=== PATIENT | female | born 2000 | race Caucasian/White ===

== ENCOUNTER 2021-11-10 09:47 | Emergency (ER) | payer OTHER, SELFPAY ==
--- NOTE | 2021-11-10 | ECG_ITS ---
Test Reason : chest pain Blood Pressure : / mmHG Vent. Rate : 096 BPM Atrial Rate : 096 BPM P-R Int : 126 ms QRS Dur : 072 ms QT Int : 340 ms P-R-T Axes : 074 058 041 degrees QTc Int : 429 ms Normal sinus rhythm with sinus arrhythmia Possible Left atrial enlargement Borderline ECG No previous ECGs available Referred By: Generic ED Physician Electronically Signed By:Doni Leon
--- NOTE | ~2021-11-10 | XR_ITS ---
EXAMINATION: XR CHEST CLINICAL INFORMATION: Chest pain COMPARISON: None TECHNIQUE: 2 views of the chest were obtained. FINDINGS: No significant abnormality is noted involving the heart, lungs, mediastinum, bony thorax or soft tissues. XR/XR chest 2V IMPRESSION: Unremarkable chest examination.
[2021-11-10 09:52] VITALS: BP 130/86; PULSE 96; RESP 18; TEMP 37; O2SAT 98; BMI 28.3
--- NOTE | 2021-11-10 10:19 | ED_ITS ---
HPI - General Adult General Chief complaint: General Medical Stated complaint: chest pain Time Seen by Provider: 11/10/21 10:07 Source: patient Mode of arrival: ambulatory History of Present Illness HPI narrative: 21-year-old female with the recent past medical history of bronchitis 2 weeks ago treated with Azithromycin & prednisone without relief, presenting to the ED complaining of continued/worsening symptoms with productive cough of green phlegm, chest tightness/discomfort, SOB. Reports chest discomfort worse on deep inspiration, and SOB worse on exertion. Also reports intermittent right calf pain x1 year worsening last night. Does take oral OCPs. Denies fever, ear pain, sore throat, abdominal pain, pedal edema, recent travel, history of clots Onset (ago): week(s) Related Data Previous Rx's Medication Instructions Recorded acetaminophen 500 mg tablet 500 mg PO Q6H PRN #14 tab 11/10/21 (Tylenol Extra Strength) benzonatate 200 mg capsule 200 mg PO TID PRN #20 cap 11/10/21 fluticasone propionate 50 2 spray INTRANASAL DAILY #16 g 11/10/21 mcg/actuation nasal spray,suspension (Flonase Allergy Relief) ibuprofen 400 mg tablet 400 mg PO Q6H 7 Days #14 tab 11/10/21 Allergies Allergy/AdvReac Type Severity Reaction Status Date / Time No Known Allergies Allergy Unverified 04/14/20 16:49 [No Known Allergies*] Review of Systems Review of Systems: Constitutional: No Fever, No Chills, No Fatigue, No Malaise ENT/Mouth: No Ear Pain, + Nasal Congestion, No Sinus Pain, No Hoarseness, No s ore throat, + Rhinorrhea, No Swallowing Difficulty Eyes: No Eye Pain, No Swelling, No Redness, No Foreign Body, No Discharge, No Vision Changes Cardiovascular: + Chest Pain, + SOB, + Dyspnea on Exertion, No Orthopnea, No Edema, No Palpitations Respiratory: + Cough, + Sputum, No Wheezing, + Dyspnea Gastrointestinal: No Nausea, No Vomiting, No Diarrhea, No Constipation, No Abdominal pain Genitourinary: No Dysuria, No Urinary Frequency, No Hematuria, No Urgency, No Flank Pain, No Urinary Flow Changes Musculoskeletal: No joint pain, No Myalgias, No Joint Swelling Skin: No Skin Lesions, No rash Neuro: No Weakness, No Numbness, No Paresthesias, No Dizziness, No Headache Yes all other systems are reviewed and are negative [facility] Past Medical History Attestation statement: The following information was validated with the patient. Medical History No known health problems Social History Social History Advance Directives: No Patient : No Physical Exam ED Vital Signs: Vital Signs - 24 hr 11/10/21 09:52 11/10/21 10:30 Temperature 98.6 F Pulse Rate 96 96 Respiratory Rate 18 18 Blood Pressure 130/86 Pulse Oximetry 98 BMI result Body Mass Index 28.3 Const General: cooperative, healthy appearing and no acute distress Orientation/consciousness: patient oriented x3 Limitations: no limitations HENMT Head: Yes normal to inspection Ears: hearing grossly normal bilaterally, external ears normal, TM's normal bilaterally and mastoids normal General nose exam: Normal external nose present and Nasal discharge present Face and sinus: Yes normal facial exam Mouth: Normal oral and palatal mucosa present Throat: Yes uvula midline, Yes abnormal tonsil (+ bilateral tonsillar erythema and swelling, no exudates), No peritonsillar mass, No uvula laterally displaced and No uvular edema Eyes General: appearance normal, both eyes and all related structures EOM: EOMs intact bilaterally Neck Other: + mild submandibular lymphadenopathy Neck: Yes normal visual inspection, Yes no meningeal signs, Yes supple and No anterior neck swelling Resp Effort & Inspection: normal respiratory effort, no respiratory distress, no stridor and not tachypneic Auscultation: clear to auscultation bilaterally, no rales, no rhonchi and no wheezes Cardio Rate: regular rate Heart sounds: S1 normal heart sound present and S2 normal heart sound present GI Inspection: Yes normal to inspection Palpation (GI): Soft to palpation, nontender, no guarding and not rigid General: Yes no CVA tenderness Back/Spine/Pelvis Back: no CVA tenderness Skin Rashes: no rashes Wounds: no wounds Neuro General: patient oriented x3 and no meningeal signs Gait exam (Neuro): Normal gait present Extrem Other: + mild right calf tenderness, no appreciable swelling or erythema General: Yes normal to inspection and Yes no pedal edema Course Course Course Narrative: -1237--no leukocytosis. D-dimer negative. Labs otherwise unremarkable. Troponin negative. BNP negative. -COVID-19/influenza and rapid strep negative XR chest 2V IMPRESSION: Unremarkable chest examination. > results discussed with patient. Will DC with Flonase, albuterol, Tylenol, Tessalon Perles, and close PCP follow-up. She verbalized understanding feel safe for discharge home at this time Medical Decision Making MDM Narrative Medical decision making narrative: 21-year-old female with the recent past medical history of bronchitis 2 weeks ago treated with Azithromycin & prednisone without relief, presenting to the ED complaining of continued/worsening symptoms with productive cough of green phlegm, chest tightness/discomfort, SOB. On exam VSS, NAD, nontoxic, lungs CTA, mild right calf tenderness without appreciable swelling. Concern for bronchitis vs viral illness vs pneumonia vs PE/DVT (pts calf pain intermittent x1yr will start with d-dimer). Symptoms atypical for ACS. Wells' Criteria =1 > will obtain D-dimer. Plan: EKG, labs, CXR, DuoNeb, re-evaluate Medical Records Medical records reviewed: Yes I reviewed the patient's medical records. Lab Data Lab results reviewed: Yes I reviewed the patient's lab results. Result diagrams: 11/10/21 10:17 11/10/21 10:16 Labs: Lab Results 11/10/21 11/10/21 11/10/21 Range/Units 10:16 10:16 10:17 WBC 9.7 (4.8-10.8) X10*3/uL RBC 4.73 (4.20-5.50) X10*6/uL Hgb 12.6 (12.0-16.0) g/dl Hct 39.4 (37.0-47.0) % MCV 83.3 (80.0-98.0) fL MCH 26.6 L (27.0-33.0) pg MCHC 32.0 (31.0-35.0) g/dl RDW 13.8 (11.0-16.0) % Plt Count 341 (160-400) X10*3/uL MPV 9.7 (9.4-12.3) fL Immature Gran % (Auto) 0.5 H (0.0-0.4) % Neut % (Auto) 79.4 H (45-73) % Lymph % (Auto) 15.8 L (20-40) % [place] % (Auto) 3.2 (2-11) % Eos % (Auto) 0.8 (0-4) % Baso % (Auto) 0.3 (0-2) % Lymph # (Auto) 1.5 (1.2-4.9) X10*3/uL [place] # (Auto) 0.3 (0.1-1.2) X10*3/uL Eos # (Auto) 0.1 (0.0-0.4) X10*3/uL Baso # (Auto) 0.0 (0.0-0.2) X10*3/uL Abs Immat Gran (auto) 0.05 H (0.00-0.03) X10*3/uL Absolute Neuts (auto) 7.7 (2.0-8.3) x10*3/uL Absolute Nucleated RBC 0.000 (0.0-0.012) X10*3/uL Nucleated RBC % (auto) 0.0 (0.0-0.2) /100WBC PT (9.9-13.0) SEC INR (0.9-1.1) D-Dimer High Sensitivty NG/ML Sodium 138 (135-145) mmol/L Potassium 3.8 (3.3-5.1) mmol/L Chloride 106 (96-108) mmol/L Carbon Dioxide 23 (22-29) mmol/L Anion Gap 13 (12-20) BUN 7 L (9-16) mg/dL Creatinine 0.63 (0.5-1.4) mg/dL Estim Creat Clear Calc 124.6 Estimated GFR > 60 Random Glucose 79 (60-115) mg/dL Calcium 9.3 (8.4-10.2) mg/dL Troponin I High Sens < 3.5 (<3.5-17.0) ng/L B-Natriuretic Peptide (<100) pg/mL COVID-19 (MIKAL) (Negative) COVID-19 Clin Com Influenza Type A (RASHIDA) (Negative) Influenza Type B (RASHIDA) (Negative) Influenza A & B Note S. pyogenes GrpA RASHIDA (Negative) 11/10/21 11/10/21 11/10/21 Range/Units 10:17 11:02 11:02 WBC (4.8-10.8) X10*3/uL RBC (4.20-5.50) X10*6/uL Hgb (12.0-16.0) g/dl Hct (37.0-47.0) % MCV (80.0-98.0) fL MCH (27.0-33.0) pg MCHC (31.0-35.0) g/dl RDW (11.0-16.0) % Plt Count (160-400) X10*3/uL MPV (9.4-12.3) fL Immature Gran % (Auto) (0.0-0.4) % Neut % (Auto) (45-73) % Lymph % (Auto) (20-40) % [place] % (Auto) (2-11) % Eos % (Auto) (0-4) % Baso % (Auto) (0-2) % Lymph # (Auto) (1.2-4.9) X10*3/uL [place] # (Auto) (0.1-1.2) X10*3/uL Eos # (Auto) (0.0-0.4) X10*3/uL Baso # (Auto) (0.0-0.2) X10*3/uL Abs Immat Gran (auto) (0.00-0.03) X10*3/uL Absolute Neuts (auto) (2.0-8.3) x10*3/uL Absolute Nucleated RBC (0.0-0.012) X10*3/uL Nucleated RBC % (auto) (0.0-0.2) /100WBC PT (9.9-13.0) SEC INR (0.9-1.1) D-Dimer High Sensitivty NG/ML Sodium (135-145) mmol/L Potassium (3.3-5.1) mmol/L Chloride (96-108) mmol/L Carbon Dioxide (22-29) mmol/L Anion Gap (12-20) BUN (9-16) mg/dL Creatinine (0.5-1.4) mg/dL Estim Creat Clear Calc Estimated GFR Random Glucose (60-115) mg/dL Calcium (8.4-10.2) mg/dL Troponin I High Sens (<3.5-17.0) ng/L B-Natriuretic Peptide < 10 (<100) pg/mL COVID-19 (MIKAL) Negative (Negative) COVID-19 Clin Com See Note Influenza Type A (RASHIDA) Negative (Negative) Influenza Type B (RASHIDA) Negative (Negative) Influenza A & B Note See Note S. pyogenes GrpA RASHIDA (Negative) 11/10/21 11/10/21 Range/Units 11:21 11:45 WBC (4.8-10.8) X10*3/uL RBC (4.20-5.50) X10*6/uL Hgb (12.0-16.0) g/dl Hct (37.0-47.0) % MCV (80.0-98.0) fL MCH (27.0-33.0) pg MCHC (31.0-35.0) g/dl RDW (11.0-16.0) % Plt Count (160-400) X10*3/uL MPV (9.4-12.3) fL Immature Gran % (Auto) (0.0-0.4) % Neut % (Auto) (45-73) % Lymph % (Auto) (20-40) % [place] % (Auto) (2-11) % Eos % (Auto) (0-4) % Baso % (Auto) (0-2) % Lymph # (Auto) (1.2-4.9) X10*3/uL [place] # (Auto) (0.1-1.2) X10*3/uL Eos # (Auto) (0.0-0.4) X10*3/uL Baso # (Auto) (0.0-0.2) X10*3/uL Abs Immat Gran (auto) (0.00-0.03) X10*3/uL Absolute Neuts (auto) (2.0-8.3) x10*3/uL Absolute Nucleated RBC (0.0-0.012) X10*3/uL Nucleated RBC % (auto) (0.0-0.2) /100WBC PT 10.7 (9.9-13.0) SEC INR 0.9 (0.9-1.1) D-Dimer High Sensitivty < 150 NG/ML Sodium (135-145) mmol/L Potassium (3.3-5.1) mmol/L Chloride (96-108) mmol/L Carbon Dioxide (22-29) mmol/L Anion Gap (12-20) BUN (9-16) mg/dL Creatinine (0.5-1.4) mg/dL Estim Creat Clear Calc Estimated GFR Random Glucose (60-115) mg/dL Calcium (8.4-10.2) mg/dL Troponin I High Sens (<3.5-17.0) ng/L B-Natriuretic Peptide (<100) pg/mL COVID-19 (MIKAL) (Negative) COVID-19 Clin Com Influenza Type A (RASHIDA) (Negative) Influenza Type B (RASHIDA) (Negative) Influenza A & B Note S. pyogenes GrpA RASHIDA Negative (Negative) ECG Data Attestation: I personally reviewed and interpreted this ECG as follows: Prior ECG tracings: not available for review Interpretation: EKG normal sinus rhythm with sinus arrhythmia at a rate of 96. PA interval 126. QTC 429. No previous EKGs to compare. No STEMI. Scores Wells DVT Localized tenderness along distribution of deep veins: 1 Score: 1 2-tier Risk: unlikely risk (5%) 3-tier Risk: moderate risk (17%) Discharge Plan Discharge Clinical Impression: Acute viral syndrome Patient Disposition: Home, Self-Care Instructions: Viral Syndrome (ED) Additional Instructions: Your blood work was reassuring. Your chest x-ray is unremarkable. He tested n egative for COVID-19, the flu, and strep throat Push oral fluids at home, rest Take Tylenol and Motrin Tessalon Perles for cough, take as needed In addition use Flonase Please follow-up with her doctor If symptoms persist or worsen have constant worsening chest pain, shortness of breath, fever please return to the emergency department Prescriptions: New benzonatate 200 mg capsule 200 mg PO TID PRN (Reason: cough) Qty: 20 0RF acetaminophen [Tylenol Extra Strength] 500 mg tablet 500 mg PO Q6H PRN (Reason: pain or fever) Qty: 14 0RF ibuprofen 400 mg tablet 400 mg PO Q6H 7 Days Qty: 14 0RF fluticasone propionate [Flonase Allergy Relief] 50 mcg/actuation spray,suspension 2 spray intranasal DAILY Qty: 16 0RF Rx Instructions: administer into each nostril Referrals: Marva Mosley MD [Primary Care Provider] - 3 days
[2021-11-10] MEDS: Albuterol Sulfate (0.083%) 2.5 MG/3 ML VIAL.NEB INHALE (10:27)
[2021-11-10 10:30] VITALS: PULSE 96; RESP 18; O2SAT 98
[2021-11-10 11:29] LABS: COVID-19 Test Negative (Negative); IDNOW Serial# 55D5AD1C
[2021-11-10 11:30] LABS: MANUAL DIFF FLAG NO
[2021-11-10 11:33] LABS: Basophils Percent Auto 0.3 % (0-2); Eosinophils Absolute Auto 0.1 X10*3/uL (0.0-0.4); Eosinophils Percent Auto 0.8 % (0-4); Hematocrit 39.4 % (37.0-47.0); Hemoglobin 12.6 g/dl (12.0-16.0); Imm Gran Abs Auto 0.05 X10*3/uL (0.00-0.03); Imm Gran Pct Auto 0.5 % (0.0-0.4); Lymphocytes Absolute Auto 1.5 X10*3/uL (1.2-4.9); Lymphocytes Percent Auto 15.8 % (20-40); Mean Corpuscular Hemoglobin 26.6 pg (27.0-33.0); Mean Corpuscular Volume 83.3 fL (80.0-98.0); Mean Platelet Volume 9.7 fL (9.4-12.3); Monocytes Absolute Auto 0.3 X10*3/uL (0.1-1.2); Monocytes Percent Auto 3.2 % (2-11); Neutrophils Absolute Auto 7.7 x10*3/uL (2.0-8.3); Neutrophils Percent Auto 79.4 % (45-73); Platelet Count 341 X10*3/uL (160-400); Red Blood Count 4.73 X10*6/uL (4.20-5.50); Red Cell Distribution Width 13.8 % (11.0-16.0); White Blood Count 9.7 X10*3/uL (4.8-10.8)
[2021-11-10 11:43] LABS: INTERNATIONAL NORM RATIO 0.9 (0.9-1.1); Prothrombin Time 10.7 SEC (9.9-13.0)
[2021-11-10 11:46] LABS: IDNOW Serial# 08D9AD1C; Influenza A Negative (Negative); Influenza B2 Negative (Negative)
[2021-11-10 11:52] LABS: Anion Gap 13 (12-20); Blood Urea Nitrogen 7 mg/dL (9-16); Calcium 9.3 mg/dL (8.4-10.2); Carbon Dioxide 23 mmol/L (22-29); Chloride 106 mmol/L (96-108); Creatinine Clr Calc Pharmacy 124.6; Estimated Glomerular Filt Rate > 60; Glucose Random 79 mg/dL (60-115); Potassium 3.8 mmol/L (3.3-5.1); Sodium 138 mmol/L (135-145)
[2021-11-10 11:54] LABS: D Dimer High Sensitivity < 150 NG/ML
[2021-11-10 11:54] LABS: Troponin-I High Sensitivity < 3.5 ng/L (<3.5-17.0)
[2021-11-10 11:55] LABS: B Type Natriuretic Peptide < 10 pg/mL (<100)
[2021-11-10 12:06] LABS: Strep A Nucleic Acid Negative (Negative)
== END 2021-11-10 13:07 | disposition home or self-care (01) ==
PROVIDERS: Physician Assistant; Emergency Provider Emergency Medicine; PCP Pediatrics
DX: B34.9 Viral infection, unspecified (principal); R07.89 Other chest pain; Z20.822 Contact with and (suspected) exposure to COVID-19; Z79.899 Other long term (current) drug therapy
CPT/HCPCS: 36415; 71046; 80048; 83880; 84484; 85025; 85379; 85610; 87502; 87635; 87651; 93005; 94640; 99284

== ENCOUNTER 2022-04-28 01:37 | Emergency (ER) | payer OTHER, SELFPAY ==
[2022-04-28 02:25] VITALS: BP 126/69; PULSE 93; RESP 18; TEMP 36.7; O2SAT 98; BMI 29.2
[2022-04-28 04:14] VITALS: BP 139/95; PULSE 92; RESP 15; TEMP 36.9; O2SAT 99
--- NOTE | 2022-04-28 04:16 | PC.NURSE ---
Pt. on ekg monitor at this time. Father at bedside. Awaiting ED provider
--- NOTE | 2022-04-28 04:17 | PC.NURSE ---
Pt. states that pain is to L thigh. Pain has been present since 12:00 on 04/27/22. Pain is sharp in nature to L knee, then a dull ache that has progressively been moving up to hip and wrapping around thigh
[2022-04-28 05:05] LABS: Appearance Urine Clear; Color Urine Yellow; Glucose Urine UA Negative (Negative); Leukocyte Esterase Urine Moderate (2+) (Negative); Nitrite Urine Negative (Negative); PH 5.5 (5.0-9.0); Specific Gravity - Urine >= 1.030 (1.005-1.025); UMIC TRIGGER UACC YES; Urine Blood Large (3+) (Negative); Urine Ketones Trace mg/dL (Negative); Urine Protein 30 (1+) mg/dL (Neg-Trace)
[2022-04-28 05:09] LABS: UPreg QC Valid YES; Urine Pregnancy NEGATIVE (NEGATIVE)
--- NOTE | 2022-04-28 05:12 | ED.LOWEXIN ---
HPI - Extremity Injury (Lower) General Chief Complaint: Extremity Injury, Lower Stated Complaint: Thigh/Knee pain Time Seen by Provider: 04/28/22 04:28 Source: patient Mode of arrival: ambulatory History of Present Illness HPI Narrative: 22-year-old female without significant past medical history presents with complaints of left lateral thigh discomfort that is tingling in nature and she states that also extends in the front just above her knee. Patient states that the pain and discomfort started after she did an exercise regimen of ?leg work?. Patient denies any falls, fevers, chills, calf pain, redness or swelling. Related Data Previous Rx's Medication Instructions Recorded acetaminophen 500 mg tablet 500 mg PO Q6H PRN pain or fever 11/10/21 (Tylenol Extra Strength) #14 tabs benzonatate 200 mg capsule 200 mg PO TID PRN cough #20 caps 11/10/21 fluticasone propionate 50 2 spray intranasal DAILY #16 grams 11/10/21 mcg/actuation nasal spray,suspension (Flonase Allergy Relief) ibuprofen 400 mg tablet 400 mg PO Q6H 7 days #14 tabs 11/10/21 Allergies Allergy/AdvReac Type Severity Reaction Status Date / Time No Known Allergies Allergy Unverified 04/14/20 16:49 [No Known Allergies*] Review of Systems Review of Systems: Pertinent positives and negatives as stated in HPI 10 point review of systems is otherwise negative. PMFSH Past Medical History Source: nursing notes reviewed Medical History No known health problems Social History Social History Alcohol intake: never Patient Tobacco Use Status: Never used Tobacco Use of substances other than those prescribed or required for medical reasons: No Advance Directives: No Advance Directives Information Provided: Yes Patient : No Physical Exam Vital Signs: Vital Signs: Last Vital Signs Temp 98.4 F 04/28/22 04:14 Pulse 92 04/28/22 04:14 Resp 15 04/28/22 04:14 BP 139/95 H 04/28/22 04:14 Pulse Ox 99 04/28/22 04:14 O2 Del Method 04/28/22 04:14 BMI result Body Mass Index 29.2 VITAL SIGNS: Reviewed. GENERAL: Well developed, well nourished, in no acute distress. HEAD: Normocephalic/atraumatic EYES: PERRLA, EOMI EARS: Ext canals without abnormality OROPHARYNX: no oral lesions noted, posterior pharynx clear LUNGS: Normal breath sounds. No adventitious sounds or accessory muscle use. SpO2<99> CARDIOVASCULAR: Regular rate and rhythm without noted murmurs ABDOMEN: Soft, non-tender, non-distended with bowel sounds. MUSCULOSKELETAL: No tenderness, deformities, or effusions noted on gross inspection. EXTREMITIES: No cyanosis, clubbing or edema,; LEFT LOWER EXTREMITY: TENDERNESS TO PALPATION OVER LATERAL ASPECT WITHOUT ERYTHEMA OR INDURATION SKIN: Inspection of the skin reveals no rashes NEUROLOGIC: Alert and oriented x 4. Strength and sensation to light touch were grossly intact x 4. Course Course Course Narrative: 22-year-old female with history and clinical presentation consistent with overuse injury likely secondary to exercise regimen from in the morning. The low clinical suspicion for DVT and no evidence to suggest infection. Review of all investigations negative for acute findings, the noted hematuria is secondary to patient's ongoing menstruation at this time. On re-evaluation patient is feeling better after combination analgesics. MDM - Extremity Injury (Lower) Lab Data Labs: Lab Results 04/28/22 04/28/22 04/28/22 Range/Units 04:57 04:57 05:16 D-Dimer High Sensitivty 167 NG/ML Urine Color Yellow Urine Appearance Clear Urine pH 5.5 (5.0-9.0) Ur Specific [place] >= 1.030 H (1.005-1.025) Urine Protein 30 (1+) H (Neg-Trace) mg/dL Urine Glucose (UA) Negative (Negative) mg/dL Urine Ketones Trace (Negative) mg/dL Urine Blood Large (3+) H (Negative) Urine Nitrite Negative (Negative) Ur Leukocyte Esterase Moderate (2+) H (Negative) Urine RBC 3-5 H (0-2) /HPF Urine WBC 21-50 H (0-5) /HPF Ur Squamous Epith Cells 11-20 (0-2) /HPF Urine Bacteria 1+ (None Seen) Hyaline Casts 0-2 (0-2) /LPF Urine Test NEGATIVE (NEGATIVE) Discharge Plan Discharge Clinical Impression: Overuse injury of lower leg Patient Disposition: Home, Self-Care Instructions: Tendinitis (ED) Additional Instructions: 1. Tylenol 1000 mg, orally, every 6 hours as needed for pain control. Do not exceed 4000 mg within 24 hours. 2. Ibuprofen 400 mg, orally with milk or food, every 6 hours as needed for pain control. You may take this medication with Tylenol. 3. Rest your leg into not do any further weight lifting at this time. Return to the ER for worsening symptoms. Prescriptions: No Action benzonatate 200 mg capsule 200 mg PO TID PRN (Reason: cough) Qty: 20 0RF acetaminophen [Tylenol Extra Strength] 500 mg tablet 500 mg PO Q6H PRN (Reason: pain or fever) Qty: 14 0RF ibuprofen 400 mg tablet 400 mg PO Q6H 7 Days Qty: 14 0RF fluticasone propionate [Flonase Allergy Relief] 50 mcg/actuation spray,suspension 2 spray intranasal DAILY Qty: 16 0RF Rx Instructions: administer into each nostril Referrals: Marva Mosley MD [Primary Care Provider] - Stand Alone Forms: Work/School Release
[2022-04-28 05:25] LABS: Bacteria Urine 1+ (None Seen); Hyaline Casts Urine 0-2 /LPF (0-2); UACC Culture Trigger YES; WBC Urine 21-50 /HPF (0-5)
[2022-04-28 05:33] LABS: D Dimer High Sensitivity 167 NG/ML
[2022-04-28] MEDS: Acetaminophen 325 MG TABLET 975 MG PO (05:43)
[2022-04-28] MEDS: Ketorolac Tromethamine 15 MG/ML VIAL IM (05:44)
== END 2022-04-28 05:50 | disposition home or self-care (01) ==
PROVIDERS: Emergency Provider Student in an Organized Health Care Education/Training Program; PCP Pediatrics
DX: S79.922A Unspecified injury of left thigh, initial encounter (principal); X58.XXXA Exposure to other specified factors, initial encounter; Y93.B9 Activity, other involving muscle strengthening exercises; Y92.9 Unspecified place or not applicable; Y99.9 Unspecified external cause status
CPT/HCPCS: 36415; 81001; 81025; 85379; 87086; 87147; 96372; 99284; J1885

== ENCOUNTER 2023-02-18 07:49 | Emergency (ER) | payer MEDICAID, SELFPAY ==
--- NOTE | ~2023-02-18 | US_ITS ---
EXAMINATION: US PELVIS COMPLETE US PELVIS ENDOVAGINAL CLINICAL INFORMATION: Right lower quadrant pain COMPARISON: CT abdomen from 02/18/2023 TECHNIQUE: Transabdominal and transvaginal images of the pelvis were obtained. FINDINGS: UTERUS: Anteverted. Normal size and contour, measuring 7.7 x 4.1 x 5.1 cm (cervix to fundus x AP x transverse). Uniform, homogeneous endometrium measures 0.4 cm in width. RIGHT OVARY: Right ovary measures 6.8 x 4.0 x 3.5 cm, volume 61.3 cm. Vascular flow noted in the right ovary. Redemonstration of a nonvascular right ovarian cyst with small daughter cyst measuring 5.1 x 4.1 x 3.1 cm. LEFT OVARY: Normal size and echogenicity measuring 2.5 x 1.0 x 1.9 cm, volume 2.4 cm. Vascular flow noted in the left ovary. FREE FLUID: Fluid noted adjacent to the uterine fundus. US/US pelvic and transvaginal IMPRESSION: 1. Bilateral ovarian vascular flow identified. 2. Redemonstration of a nonvascular right ovarian cyst with small daughter cyst measuring 5.1 x 4.1 x 3.1 cm. 3. Fluid noted adjacent to the uterine fundus.
--- NOTE | ~2023-02-18 | US_ITS ---
EXAMINATION: US PELVIS COMPLETE US PELVIS ENDOVAGINAL CLINICAL INFORMATION: Right lower quadrant pain COMPARISON: CT abdomen from 02/18/2023 TECHNIQUE: Transabdominal and transvaginal images of the pelvis were obtained. FINDINGS: UTERUS: Anteverted. Normal size and contour, measuring 7.7 x 4.1 x 5.1 cm (cervix to fundus x AP x transverse). Uniform, homogeneous endometrium measures 0.4 cm in width. RIGHT OVARY: Right ovary measures 6.8 x 4.0 x 3.5 cm, volume 61.3 cm. Vascular flow noted in the right ovary. Redemonstration of a nonvascular right ovarian cyst with small daughter cyst measuring 5.1 x 4.1 x 3.1 cm. LEFT OVARY: Normal size and echogenicity measuring 2.5 x 1.0 x 1.9 cm, volume 2.4 cm. Vascular flow noted in the left ovary. FREE FLUID: Fluid noted adjacent to the uterine fundus. US/US pelvic ovarian doppler IMPRESSION: 1. Bilateral ovarian vascular flow identified. 2. Redemonstration of a nonvascular right ovarian cyst with small daughter cyst measuring 5.1 x 4.1 x 3.1 cm. 3. Fluid noted adjacent to the uterine fundus.
--- NOTE | ~2023-02-18 | CT_ITS ---
EXAMINATION: CT ABDOMEN AND PELVIS WITH CONTRAST CLINICAL INFORMATION: 23-year-old female with right lower quadrant abdominal pain COMPARISON: Pelvic ultrasound from the same day TECHNIQUE: Multidetector volumetric images were obtained from the superior aspect of the liver through the pubic symphysis following administration 85 mL of Omnipaque 350 intravenous contrast. Sagittal and coronal reformatted images were obtained on the technologist's workstation. Oral contrast: No This CT examination was performed using dose optimization techniques as appropriate, variously including the following: *Automated exposure control *Adjustment of mA and/or kV according to patient size (this includes techniques or standardized protocols for targeted exams where dose is matched to indication/reason for exam; i.e. extremities or head) *Use of iterative reconstruction technique DLP: 549.00 mGy-cm FINDINGS: LUNG BASES: The visualized lung bases are unremarkable. LIVER, GALLBLADDER, AND BILIARY TREE: There is homogeneous without masses, there is small low-attenuation lesion in the right lobe of the liver adjacent to falciform ligament, measured 0.6 cm most likely cyst. The gallbladder is unremarkable with no evidence of radiopaque gallstones, gallbladder wall thickening, or obvious pericholecystic inflammatory changes. PANCREAS: Unremarkable. SPLEEN: Unremarkable. ADRENAL GLANDS: Unremarkable. KIDNEYS AND URETERS: The kidneys are normal in size, shape, and attenuation. No hydronephrosis, hydroureter, or calculi seen. No perinephric stranding. BLADDER: Unremarkable. GASTROINTESTINAL TRACT: There is large amount of retained feces in ascending colon and cecum and a 10 gas in the colon. Findings consistent with constipation. Appendix is unremarkable. Small bowel loops are not dilated. Mesentery is normal. ABDOMINAL WALL: No significant hernia is appreciated. LYMPH NODES: Normal. VASCULAR: Unremarkable. PELVIC VISCERA: There is IUD in the uterus. There is large cystic tubular lesion in the right adnexa, measured approximately 6.0 x 3.0 x 3.6 cm with seen septations most likely cyst, hydrosalpinx couldn't be excluded. There is trace of fluid in cul-de-sac. OSSEOUS STRUCTURES: Unremarkable. CT/CT abdomen pelvis w IV con IMPRESSION: 1. Right adnexal cyst, hydrosalpinx couldn't be excluded. 2. Constipation. 3. Normal appendix. 4. Small cyst in the liver. 5. Trace of fluid in cul-de-sac. Fleischner guidelines were followed.
[2023-02-18 07:52] VITALS: BP 129/88; PULSE 92; RESP 12; TEMP 36.6; O2SAT 99; BMI 30.2
--- NOTE | 2023-02-18 08:01 | ED_ITS ---
HPI - Abdominal Pain General Chief Complaint: Abdominal Pain Stated Complaint: RLQ pain Time Seen by Provider: 02/18/23 07:52 Source: patient and family ( Mother) Mode of arrival: ambulatory Limitations: no limitations History of Present Illness HPI narrative: this is a 23-year-old female without significant medical history presenting to the emergency department with complaints of right lower quadrant abdominal pain, pain started 2 days ago and has been gradually and progressively worsening. Patient reports initially the pain was localized to her left lower quadrant and has migrated to the right lower quadrant now pain is constant, severe, she states last night was intolerable, pain is worse with movement better at rest. Patient endorses nausea and anorexia. Denies vomiting, chest pain, shortness of breath, fevers, chills, headache, vaginal bleeding or discharge, vision changes, dizziness and weakness. Patient denies any previous abdominal surgeries Related Data Previous Rx's Medication Instructions Recorded acetaminophen 500 mg tablet 500 mg PO Q6H PRN pain or fever 11/10/21 (Tylenol Extra Strength) #14 tabs benzonatate 200 mg capsule 200 mg PO TID PRN cough #20 caps 11/10/21 fluticasone propionate 50 2 spray intranasal DAILY #16 grams 11/10/21 mcg/actuation nasal spray,suspension (Flonase Allergy Relief) ibuprofen 400 mg tablet 400 mg PO Q6H 7 days #14 tabs 11/10/21 docusate sodium 100 mg capsule 100 mg PO BID #20 caps 02/18/23 (Colace) ketorolac 10 mg tablet 10 mg PO TID PRN pain 5 days #15 02/18/23 tabs polyethylene glycol 3350 17 17 g PO BID PRN constipation #238 02/18/23 gram/dose oral powder (Miralax) grams sennosides 8.6 mg tablet (senna) 8.6 mg PO BEDTIME #14 tabs 02/18/23 Allergies Allergy/AdvReac Type Severity Reaction Status Date / Time No Known Allergies Allergy Unverified 04/14/20 16:49 [No Known Allergies*] Review of Systems Review of Systems Constitutional : No Weight loss, No Fever, No Chills, No Fatigue, No Malaise ENT/Mouth : No sore throat, No Rhinorrhea Eyes: No Eye Pain, No Swelling, No Redness Cardiovascular : No Chest Pain, No SOB, No Dyspnea on Exertion, No Orthopnea, No Edema, No Palpitations Respiratory : No Cough, No Sputum, No Wheezing Gastrointestinal : + Nausea, No Vomiting, No Diarrhea, No Constipation, + abdominal Pain, No Hematochezia, No Melena Genitourinary : No Dysuria, No Urinary Frequency, No Hematuria, Musculoskeletal : No joint pain, No Myalgias, No Joint Swelling Skin : No Skin Lesions, No rash Neuro : No Weakness, No Numbness, No Dizziness, No Headache Psych : No Anxiety/Panic, No Depression All other systems reviewed and are negative Yes all other systems are reviewed and are negative [facility] Past Medical History Attestation statement: The following information was validated with the patient. Source: old records reviewed and nursing notes reviewed Medical History No known health problems Social History Social History Alcohol intake: current Alcohol intake frequency: holidays/special occasions only Patient Tobacco Use Status: Never used Tobacco Smoked in Last 30 Days: No Use of substances other than those prescribed or required for medical reasons: Yes Substance Use Type: Marijuana Substance Use Frequency: Occasionally Last Used Substance: Weeks (ago) Advance Directives: No Advance Directives Information Provided: No Physical Exam ED Vital Signs: Vital Signs - 24 hr 02/18/23 07:52 02/18/23 07:52 02/18/23 11:06 Temperature 97.8 F 97.8 F 98.6 F Pulse Rate 92 92 83 Respiratory Rate 12 12 18 Blood Pressure 129/88 129/88 120/77 Pulse Oximetry 99 99 98 Oxygen Delivery Method Room Air Room Air BMI result Body Mass Index 30.2 vss Appearance: Alert.? Oriented X3.? No acute distress.?Non toxic appearing Head: Normocephalic, atraumatic, no step-offs or deformities Eyes: Pupils equal, round and reactive to light.? Neck: Normal inspection.? Neck supple.? CVS: Normal heart rate and rhythm.? Pulses normal.? Respiratory: No respiratory distress.? Breath sounds normal.? Abdomen: Soft and abdominal tenderness to palpation to right lower quadrant. Skin: Skin warm and dry.? Normal skin color.? Normal skin turgor.? Extremities: No lower extremity edema.? No calf ttp. 5/5 strength to bilateral upper and lower extremities Neuro: Oriented X 3.? No motor deficit.? No sensory deficit. CN 2-12 intact Course Reevaluation(s) Reevaluation #1: CBC appears to have slight leukocytosis likely reactive secondary to pain or nausea. Chemistry unremarkable. CRP 0.66, mild elevation. Nonspecific. CT abdomen and pelvis with right adnexal cyst and hydrosalpinx possibly. Constipation, normal appendix, small cyst in the liver, trace fluid in the cul-de-sac, ovarian Doppler with normal flow no signs of torsion. Redemonstration and nonvascular right ovarian cyst with small daughter cyst measuring 5.1 x 4.1 x 3.1 cm, fluid noted adjacent to the uterine fundus. No reports of vaginal bleeding or discharge at this time, patient does not want a pelvic exam ( would rather have with out patient OBGYN) will have her follow-up with OBGYN. I did educate on signs of torsion in explained her she should return if any of these arise. Advised her to follow-up with OBGYN, pain likely secondary to inflammation from ovarian cyst or ruptured ovarian cyst . I did also go over the signs and symptoms of appendicitis and advised her to return if quality or quantity of pain changes. Patient feels better after Toradol, mom at bedside. Plan at this time discharge home. Educated patient on diagnosis and treatment plan, answered all question, patient verbalizes understanding. At this time patient will be discharged home, advised to return with new or worsening symptoms. Educated on worrisome signs and symptoms and when to return. At this time I feel comfortable discharge home. Time: 12:12 Medical Decision Making Medical Decision Making [facility] Narrative: 0818 23-year-old female presents with right lower quadrant pain x3 days. Associated nausea and anorexia. Patient still has appendix physical exam significant for Soft and abdominal tenderness to palpation to right lower quadrant. Negative Santiago sign. suspicion for appendicitis. Will rule out other intra-abdominal etiologies. Low suspicion for cholecystitis, pancreatitis, diverticulitis, acute abdomen. Will rule out electrolyte abnormalities, UTI, , obstructing uropathy , pelvic /ovarian cyst. Unlikely that this is ovarian torsion or ectopic plan labs, imaging, urine Differential Diagnosis Differential Diagnoses: The differential diagnosis associated with the presen tation includes suspicion for appendicitis. Will rule out other intra-abdominal etiologies. Low suspicion for cholecystitis, pancreatitis, diverticulitis, acute abdomen. Will rule out electrolyte abnormalities, UTI, , obstructing uropathy pelvic /ovarian cyst. Unlikely that this is ovarian torsion or ectopic Admission/Observation Consideration of admission/observation: Escalation of care including ad mission/observation considered possible Lab Data MDM Lab Attestation statement: I reviewed the patient's lab results. 02/18/23 08:18 02/18/23 08:19 Labs: Lab Results 02/18/23 02/18/23 02/18/23 Range/Units 08:18 08:18 08:18 WBC 11.3 H (4.8-10.8) X10*3/uL RBC 4.56 (4.20-5.50) X10*6/uL Hgb 12.1 (12.0-16.0) g/dl Hct 38.1 (37.0-47.0) % MCV 83.6 (80.0-98.0) fL MCH 26.5 L (27.0-33.0) pg MCHC 31.8 (31.0-35.0) g/dl RDW 14.0 (11.0-16.0) % Plt Count 330 (160-400) X10*3/uL MPV 9.6 (9.4-12.3) fL Immature Gran % (Auto) 0.4 (0.0-0.4) % Neut % (Auto) 68.6 (45-73) % Lymph % (Auto) 23.4 (20-40) % [place] % (Auto) 5.4 (2-11) % Eos % (Auto) 1.8 (0-4) % Baso % (Auto) 0.4 (0-2) % Lymph # (Auto) 2.7 (1.2-4.9) X10*3/uL [place] # (Auto) 0.6 (0.1-1.2) X10*3/uL Eos # (Auto) 0.2 (0.0-0.4) X10*3/uL Baso # (Auto) 0.1 (0.0-0.2) X10*3/uL Abs Immat Gran (auto) 0.05 H (0.00-0.03) X10*3/uL Absolute Neuts (auto) 7.8 (2.0-8.3) x10*3/uL Absolute Nucleated RBC 0.000 (0.0-0.012) X10*3/uL Nucleated RBC % (auto) 0.0 (0.0-0.2) /100WBC ESR 12 (0-20) MM/HR Sodium (135-145) mmol/L Potassium (3.3-5.1) mmol/L Chloride (96-108) mmol/L Carbon Dioxide (22-29) mmol/L Anion Gap (12-20) BUN (9-16) mg/dL Creatinine (0.5-1.4) mg/dL Estim Creat Clear Calc Estimated GFR Random Glucose (60-115) mg/dL Lactic Acid (0.5-2.0) mmol/L Calcium (8.4-10.2) mg/dL Magnesium (1.6-2.6) mg/dL Total Bilirubin (0.0-1.0) mg/dL AST (5-31) U/L ALT (0-31) U/L Alkaline Phosphatase (39-117) U/L C-Reactive Protein (< or = 0.50) mg/dL Total Protein (6.5-8.0) g/dL Albumin (3.5-5.0) g/dL COVID-19 (MIKAL) Negative (Negative) COVID-19 Clin Com See Note 02/18/23 02/18/23 Range/Units 08:19 08:19 WBC (4.8-10.8) X10*3/uL RBC (4.20-5.50) X10*6/uL Hgb (12.0-16.0) g/dl Hct (37.0-47.0) % MCV (80.0-98.0) fL MCH (27.0-33.0) pg MCHC (31.0-35.0) g/dl RDW (11.0-16.0) % Plt Count (160-400) X10*3/uL MPV (9.4-12.3) fL Immature Gran % (Auto) (0.0-0.4) % Neut % (Auto) (45-73) % Lymph % (Auto) (20-40) % [place] % (Auto) (2-11) % Eos % (Auto) (0-4) % Baso % (Auto) (0-2) % Lymph # (Auto) (1.2-4.9) X10*3/uL [place] # (Auto) (0.1-1.2) X10*3/uL Eos # (Auto) (0.0-0.4) X10*3/uL Baso # (Auto) (0.0-0.2) X10*3/uL Abs Immat Gran (auto) (0.00-0.03) X10*3/uL Absolute Neuts (auto) (2.0-8.3) x10*3/uL Absolute Nucleated RBC (0.0-0.012) X10*3/uL Nucleated RBC % (auto) (0.0-0.2) /100WBC ESR (0-20) MM/HR Sodium 140 (135-145) mmol/L Potassium 4.2 (3.3-5.1) mmol/L Chloride 107 (96-108) mmol/L Carbon Dioxide 27 (22-29) mmol/L Anion Gap 10 L (12-20) BUN 11 (9-16) mg/dL Creatinine 0.68 (0.5-1.4) mg/dL Estim Creat Clear Calc 117.2 Estimated GFR > 60 Random Glucose 87 (60-115) mg/dL Lactic Acid 1.4 (0.5-2.0) mmol/L Calcium 9.0 (8.4-10.2) mg/dL Magnesium 1.9 (1.6-2.6) mg/dL Total Bilirubin 0.3 (0.0-1.0) mg/dL AST 19 (5-31) U/L ALT 18 (0-31) U/L Alkaline Phosphatase 108 (39-117) U/L C-Reactive Protein 0.66 H (< or = 0.50) mg/dL Total Protein 7.5 (6.5-8.0) g/dL Albumin 4.1 (3.5-5.0) g/dL COVID-19 (MIKAL) (Negative) COVID-19 Clin Com Independent Interpretation I performed an independent interpretation of an: CT Scan Radiology Impression Discussion of test interpretation with radiology: I have reviewed the radiologist's reading. Core Measures AMI core measures followed: Yes Measure exclusions: not indicated Medications Administered Discontinued Medications Generic Name Dose Route Start Last Admin Trade Name Sav PRN Reason Stop Dose Admin Iohexol 85 ml 02/18/23 09:20 02/18/23 09:21 Iohexol 350 Mg/Ml 100 Ml Infus..Btl IV 02/18/23 09:21 85 ml ONCE ONE Administration Ketorolac Tromethamine 30 mg 02/18/23 08:19 02/18/23 08:28 Ketorolac Tromethamine 15 Mg/Ml Vial IVPUSH 02/18/23 08:20 30 mg ONCE ONE Administration Critical Care Time Critical Care Time Critical Care Time: No Discharge Plan Discharge Clinical Impression: Ovarian cyst, Abdominal pain, RLQ, Constipation Patient Disposition: Home, Self-Care Instructions: Ovarian Cyst (ED), High Fiber Diet (ED), Abdominal Pain (ED) Additional Instructions: Take your medications as prescribed. If you were prescribed antibiotics today, it is important that you take your medication to their entirety, do not skip any doses, do not finish them early. Follow-up with your primary care provider this week. Return to the emergency department with new or worsening symptoms. Such as fevers, chills, chest pain, shortness of breath, nausea, vomiting, dizziness, headache, vision changes, lethargy , heavy vaginal bleeding or bleeding through more than 2 pads an hour. In case of emergency call 911 Toradol has been sent to your pharmacy, you tolerated this well in the department. Please take this as prescribed do not take this with ibuprofen, or other NSAIDs, do not mix this with alcohol. Side effects of this medication including increased risk for bleeding and possible kidney injury. I educated on signs and symptoms of appendicitis and ovarian torsion, return with new or worsening symptoms, or if pain intensifies. US/US pelvic ovarian doppler RIGHT OVARY: Right ovary measures 6.8 x 4.0 x 3.5 cm, volume 61.3 cm. Vascular flow noted in the right ovary. Redemonstration of a nonvascular right ovarian cyst with small daughter cyst measuring 5.1 x 4.1 x 3.1 cm. LEFT OVARY:? Normal size and echogenicity measuring 2.5 x 1.0 x 1.9 cm, volume 2.4 cm. Vascular flow noted in the left ovary. FREE FLUID: Fluid noted adjacent to the uterine fundus. IMPRESSION: 1.? Bilateral ovarian vascular flow identified. 2.? Redemonstration of a nonvascular right ovarian cyst with small daughter cyst measuring 5.1 x 4.1 x 3.1 cm. 3.? Fluid noted adjacent to the uterine fundus. CT/CT abdomen pelvis w IV con IMPRESSION: 1.? Right adnexal cyst, hydrosalpinx couldn't be excluded. 2.? Constipation. 3.? Normal appendix. 4.? Small cyst in the liver. 5.? Trace of fluid in cul-de-sac. ? Fleischner guidelines were followed. Prescriptions: New ketorolac 10 mg tablet 10 mg PO TID PRN (Reason: pain) 5 Days Qty: 15 0RF sennosides [senna] 8.6 mg tablet 8.6 mg PO BEDTIME Qty: 14 0RF docusate sodium [Colace] 100 mg capsule 100 mg PO BID Qty: 20 0RF polyethylene glycol 3350 [Miralax] 17 gram/dose powder 17 g PO BID PRN (Reason: constipation) Qty: 238 0RF No Action benzonatate 200 mg capsule 200 mg PO TID PRN (Reason: cough) Qty: 20 0RF acetaminophen [Tylenol Extra Strength] 500 mg tablet 500 mg PO Q6H PRN (Reason: pain or fever) Qty: 14 0RF ibuprofen 400 mg tablet 400 mg PO Q6H 7 Days Qty: 14 0RF fluticasone propionate [Flonase Allergy Relief] 50 mcg/actuation s pray,suspension 2 spray intranasal DAILY Qty: 16 0RF Rx Instructions: administer into each nostril Referrals: Marva Mosley MD [Primary Care Provider] - 2 days Johnny Villanueva MD [Physician] - 1 day Stand Alone Forms: Work/School Release
--- NOTE | 2023-02-18 08:19 | PC.NURSE ---
pt a&ox3. respirations even and unlabored. skin warm pink and dry. abdominal sounds hypoactive in all 4 quadrants, RLQ tender to touch. pt reporting abdominal pain overnight that has worsened on the right lower quadrant. pt pain 8/10 currently.
[2023-02-18 08:25] LABS: MANUAL DIFF FLAG NO
[2023-02-18] MEDS: Ketorolac Tromethamine 15 MG/ML VIAL 30 MG IVPUSH (08:28)
[2023-02-18 08:34] LABS: Basophils Absolute Auto 0.1 X10*3/uL (0.0-0.2); Basophils Percent Auto 0.4 % (0-2); Eosinophils Absolute Auto 0.2 X10*3/uL (0.0-0.4); Eosinophils Percent Auto 1.8 % (0-4); Hematocrit 38.1 % (37.0-47.0); Hemoglobin 12.1 g/dl (12.0-16.0); Imm Gran Abs Auto 0.05 X10*3/uL (0.00-0.03); Imm Gran Pct Auto 0.4 % (0.0-0.4); Lymphocytes Absolute Auto 2.7 X10*3/uL (1.2-4.9); Lymphocytes Percent Auto 23.4 % (20-40); Mean Corpuscular HGB Conc 31.8 g/dl (31.0-35.0); Mean Corpuscular Hemoglobin 26.5 pg (27.0-33.0); Mean Corpuscular Volume 83.6 fL (80.0-98.0); Mean Platelet Volume 9.6 fL (9.4-12.3); Monocytes Absolute Auto 0.6 X10*3/uL (0.1-1.2); Monocytes Percent Auto 5.4 % (2-11); Neutrophils Absolute Auto 7.8 x10*3/uL (2.0-8.3); Neutrophils Percent Auto 68.6 % (45-73); Platelet Count 330 X10*3/uL (160-400); Red Blood Count 4.56 X10*6/uL (4.20-5.50); White Blood Count 11.3 X10*3/uL (4.8-10.8)
[2023-02-18 08:39] LABS: Lactic Acid 1.4 mmol/L (0.5-2.0)
[2023-02-18 08:45] LABS: COVID-19 Test Negative (Negative); IDNOW Serial# 08D9AD1C
[2023-02-18 08:51] LABS: Alanine Aminotransferase 18 U/L (0-31); Albumin Level 4.1 g/dL (3.5-5.0); Alkaline Phosphatase 108 U/L (39-117); Anion Gap 10 (12-20); Aspartate Amino Transferase 19 U/L (5-31); Bilirubin Total 0.3 mg/dL (0.0-1.0); Blood Urea Nitrogen 11 mg/dL (9-16); C Reactive Protein 0.66 mg/dL (< or = 0.50); Carbon Dioxide 27 mmol/L (22-29); Chloride 107 mmol/L (96-108); Creatinine Clr Calc Pharmacy 117.2; Estimated Glomerular Filt Rate > 60; Glucose Random 87 mg/dL (60-115); Magnesium 1.9 mg/dL (1.6-2.6); Potassium 4.2 mmol/L (3.3-5.1); Sodium 140 mmol/L (135-145); Total Protein 7.5 g/dL (6.5-8.0)
[2023-02-18] MEDS: iohexoL 350 MG/ML 100 ML INFUS..BTL 85 ML IV (09:21)
[2023-02-18 09:24] LABS: Erythrocyte Sedimentation Rate 12 MM/HR (0-20)
[2023-02-18 11:06] VITALS: BP 120/77; PULSE 83; RESP 18; TEMP 37; O2SAT 98
[2023-02-18 12:22] VITALS: BP 125/78; PULSE 85; RESP 14; O2SAT 97
[2023-02-18 12:31] LABS: Appearance Urine Clear; Color Urine Yellow; Glucose Urine UA Negative (Negative); Leukocyte Esterase Urine Negative (Negative); Nitrite Urine Negative (Negative); Specific Gravity - Urine >= 1.030 (1.005-1.025); UMIC TRIGGER UACC YES; Urine Blood Trace (Negative); Urine Ketones Negative (Negative); Urine Protein Trace mg/dL (Neg-Trace)
[2023-02-18 12:51] LABS: Bacteria Urine 3+ (None Seen); Hyaline Casts Urine 0-2 /LPF (0-2); Squamous Epithelial Cell Urine 0-2 /HPF (0-2); UACC Culture Trigger YES; WBC Urine >50 /HPF (0-5)
== END 2023-02-18 12:42 | disposition home or self-care (01) ==
PROVIDERS: Physician Assistant; Emergency Provider Emergency Medicine; PCP Pediatrics
DX: R10.31 Right lower quadrant pain (principal); N83.201 Unspecified ovarian cyst, right side; K59.00 Constipation, unspecified; Z20.822 Contact with and (suspected) exposure to COVID-19
CPT/HCPCS: 36415; 74177; 76830; 76856; 80053; 81001; 83605; 83735; 85025; 85652; 86140; 87040; 87086; 87088; 87186; 87635; 93975; 96374; 99284; J1885; Q9967

== ENCOUNTER 2024-01-29 06:51 | Emergency (ER) | payer OTHER, SELFPAY ==
--- NOTE | ~2024-01-29 | US_ITS ---
EXAMINATION: US PELVIS CLINICAL INFORMATION: Left suprapubic pain. History of ovarian cyst. Vaginal bleeding a few days ago. LMP one month ago. COMPARISON: 02/18/2023 TECHNIQUE: Ultrasound of the pelvis is performed using both transabdominal and transvaginal transducers along with Doppler interrogation. Transvaginal imaging is performed due to inadequate visualization transabdominally. Technically limited study due to overlying bowel gas. FINDINGS: Uterus: The uterus is retroverted and anteflexed. The uterus measures 8.2 x 4.0 x 5.7 cm. The endometrial stripe measures 6 mm in thickness. Uterine echotexture is heterogeneous. No discrete uterine mass. Adnexa: Both ovaries are visualized. There is no pelvic ascites or fluid collection. Right ovary measures 3.5 x 1.8 x 1.3 cm. Normal color and pulse Doppler flow. Left ovary measures 2.6 x 1.2 x 1.5 cm. Unable to obtain color and pulse Doppler flow due to depth of the ovary. US/US pelvic ovarian doppler IMPRESSION: Nonobtainable waveforms and color-flow of the left ovary due to technical limitations. Normal waveforms and color flow of the right ovary.
--- NOTE | ~2024-01-29 | CT_ITS ---
EXAMINATION: CT ABDOMEN AND PELVIS WITH CONTRAST CLINICAL INFORMATION: Epigastric pain. Left lower quadrant tenderness. COMPARISON: 02/18/2023 TECHNIQUE: Multidetector volumetric images were obtained from the superior aspect of the liver through the pubic symphysis following administration 85 mL of Omnipaque 350 intravenous contrast. Sagittal and coronal reformatted images were obtained on the technologist's workstation. Oral contrast: No This CT examination was performed using dose optimization techniques as appropriate, variously including the following: *Automated exposure control *Adjustment of mA and/or kV according to patient size (this includes techniques or standardized protocols for targeted exams where dose is matched to indication/reason for exam; i.e. extremities or head) *Use of iterative reconstruction technique DLP: 537 mGy-cm FINDINGS: LUNG BASES: The visualized lung bases are unremarkable. LIVER, GALLBLADDER, AND BILIARY TREE: The liver is normal in size and contour. Few scattered hepatic hypodensities too small to characterize. No biliary ductal dilatation is present. The gallbladder is unremarkable with no evidence of radiopaque gallstones, gallbladder wall thickening, or obvious pericholecystic inflammatory changes. PANCREAS: Unremarkable. SPLEEN: Unremarkable. ADRENAL GLANDS: Unremarkable. KIDNEYS AND URETERS: The kidneys are normal in size, shape, and attenuation. No hydronephrosis, hydroureter, or calculi seen. No perinephric stranding. BLADDER: Underdistended. GASTROINTESTINAL TRACT: No small bowel obstruction. Moderate fecal retention in the colon. ABDOMINAL WALL: No significant hernia is appreciated. LYMPH NODES: Few subcentimeter mesenteric lymph nodes. VASCULAR: Normal caliber abdominal aorta. PELVIC VISCERA: Trace free fluid in pelvis. No large adnexal masses are appreciated. OSSEOUS STRUCTURES: No destructive bone lesions. CT/CT abdomen pelvis w IV con IMPRESSION: No acute abnormality in the abdomen or pelvis.
--- NOTE | ~2024-01-29 | US_ITS ---
EXAMINATION: US PELVIS CLINICAL INFORMATION: Left suprapubic pain. History of ovarian cyst. Vaginal bleeding a few days ago. LMP one month ago. COMPARISON: 02/18/2023 TECHNIQUE: Ultrasound of the pelvis is performed using both transabdominal and transvaginal transducers along with Doppler interrogation. Transvaginal imaging is performed due to inadequate visualization transabdominally. Technically limited study due to overlying bowel gas. FINDINGS: Uterus: The uterus is retroverted and anteflexed. The uterus measures 8.2 x 4.0 x 5.7 cm. The endometrial stripe measures 6 mm in thickness. Uterine echotexture is heterogeneous. No discrete uterine mass. Adnexa: Both ovaries are visualized. There is no pelvic ascites or fluid collection. Right ovary measures 3.5 x 1.8 x 1.3 cm. Normal color and pulse Doppler flow. Left ovary measures 2.6 x 1.2 x 1.5 cm. Unable to obtain color and pulse Doppler flow due to depth of the ovary. US/US pelvic and transvaginal IMPRESSION: Nonobtainable waveforms and color-flow of the left ovary due to technical limitations. Normal waveforms and color flow of the right ovary.
[2024-01-29 06:56] VITALS: BP 129/72; PULSE 92; RESP 14; TEMP 36.3; O2SAT 98; BMI 33.2
--- OUTSIDE RECORDS SUMMARY | 2024-01-29 07:14 | XMS_ITS | Continuity of Care Document ---
Author Organization [facility] ter Address [address] [place] [id number]- Care Team Providers Care Pin Drafter Name Role Phone Marva Mosley MD Primary Care Physician Encounter [facility] [place] Date(s): 03/23/21 - 04/30/[address] [id number] Attending Physician: Bailee Ignacio Admitting Physician: Bailee Ignacio Referring Physician: Bailee Ignacio Allergies, Adverse Reactions, Alerts Substance Reaction Severity Status NKA Active Medications Cryselle 28 oral tablet 1 tablet, By Mouth, Daily, take 21 days of active tablets then skip placebos and start the next pack, # 84 tablet, 1 Refills, Maintenance, 08/24/20 13:00:00 EST, Tablet, [facility]pharm[facility] #[id number], 1 tablet By Mouth Daily,Instr:take 21 days of active tablets... Start Date: 08/24/20 Status: Ordered FLUoxetine (Eqv-Prozac) 10 mg oral tablet 1 tablet = 10 mg, By Mouth, Daily, 0 Refills, Maintenance, 03/15/21 15:20:00 EDT, Partial fill uponpatient request if the prescription is for a schedule II opioid drug. Start Date: 03/15/21 Status: Ordered Low-Ogestrel 30 mcg-0.3 mg oral tablet See Instructions, TAKE 1 TAB BY MOUTH DAILY,TAKE 21 DAYS OF ACTIVE TABLETS THEN SKIP PLACEBOS AND START THE NEXT PACK, # 84 tablet, 4 Refills, Maintenance, [id number], 63, TAKE 1 TAB BY MOUTH DAILY,TAKE 21 DAYS OF ACTIVE TABLETS THEN SKIP PLACEBO... Start Date: 03/11/21 Status: Ordered Problem List Condition Effective Dates Status Health Status Inform ant Migraines(Confirmed) Active Social History Social History Type Response Smoking Status Never (less than 100 in lifetime) entered on: 07/20/19 Sex
--- OUTSIDE RECORDS SUMMARY | 2024-01-29 07:14 | XMS_ITS | Continuity of Care Document ---
Author Organization [facility] Address [address] [place] [address], [address] [place] [address]- Care Team Providers Care Insurance Defense Attorney Name Role Phone Marva Mosley MD Primary Care Physician Encounter [facility] Date(s): 07/20/19 - 07/30/19 [facility] [address] [place] [address]- Attending Physician: Aniya Paige Admitting Physician: Anyia Paige Referring Physician: Aniya Paige Allergies, Adverse Reactions, Alerts Substance Reaction Severity Status NKA Active Medications Cryselle 28 oral tablet 1 tablet, By Mouth, Daily, take 21 days of active tablets then skip placebos and start the next pack, # 84 tablet, 6 Refills, Maintenance, 07/20/19 10:35:00 EST, Tablet, [id number], 1 tablet By Mouth Daily,Instr:take 21 days of active tablets... Start Date: 07/20/19 Status: Ordered Problem List Condition Effective Dates Status Health Status Inform ant Migraines(Confirmed) Active Social History Social History Type Response Smoking Status Never (less than 100 in lifetime) entered on: 07/20/19 Sex
--- OUTSIDE RECORDS SUMMARY | 2024-01-29 07:14 | XMS_ITS | Continuity of Care Document ---
Author Organization [facility] Address [address], [address] [place] [address]- Care Team Providers Care Rn Perinatal Name Role Phone Melany PERAZA, Marva [facility] Care [id number](s): 08/24/20 - 12/22/20 [facility] [place] [address] [place] [address]- Attending Physician: Phuong Powers MD Referring Physician: Marva Mosley MD Allergies, Adverse Reactions, Alerts Substance Reaction Severity Status NKA Active Medications Cryselle 28 oral tablet 1 tablet, By Mouth, Daily, take 21 days of active tablets then skip placebos and start the next pack, # 84 tablet, 1 Refills, Maintenance, 08/24/20 13:00:00 EST, Tablet, [id number], 1 tablet By Mouth Daily,Instr:take 21 days of active tablets... Start Date: 08/24/20 Status: Ordered Problem List Condition Effective Dates Status Health Status Inform ant Migraines(Confirmed) Active Social History Social History Type Response Smoking Status Never (less than 100 in lifetime) entered on: 07/20/19 Sex
--- OUTSIDE RECORDS SUMMARY | 2024-01-29 07:14 | XMS_ITS | Continuity of Care Document ---
Author Organization [facility] [employer] Address [address], [address]t [place] [address]- Care Team Providers Care Animal Keeper Head Name Role Phone Not on Staff, PCP Primary Care Physician Unavail able Encounter [facility] Date(s): 09/20/22 - 09/27/22 [facility] [address], [address] [place] [address]- Attending Physician: Phuong Poewrs MD Referring Physician: Adriana Wayne CNM Allergies, Adverse Reactions, Alerts No Known Allergies Immunizations Given and Recorded Vaccine Date Status Refusal Reason SARS-CoV-2 (COVID-19) mRNA-1273 vaccine 08/15/21 R ecorded SARS-CoV-2 (COVID-19) mRNA-1273 vaccine 09/16/20 R ecorded SARS-CoV-2 (COVID-19) mRNA-1273 vaccine 08/19/20 R ecorded Medications Liletta 1 each, Intrauterine, Once, Office supplied and inserted by Adriana Wayne CNM on 08/06/22 lot#[id number] exp 04/[address] [facility]#[id number], # 1 each, 0 Refills, Maintenance, 07/31/22 14:40:00 EST, Partial fill upon patient request if the prescription is fo... Start Date: 07/31/22 Status: Ordered metroNIDAZOLE 500 mg oral tablet 1 tablet = 500 mg, By Mouth, Every 12 hours, for 7 days, # 14 tablet, 0 Refills, Acute 10/01/22 13:02:00 EST, 09/24/22 13:02:00 EST, Tablet, [id number], Partial fill upon patient request if the prescription is for a schedule II opioid drug.,... Start Date: 09/24/22 Stop Date: 10/01/22 Status: Ordered Problem List Condition Confirmation Course Effective Dates Status Health St atus Informant Migraines Confirmed Active Vital Signs Most recent to oldest [Reference Range]: 1 Height 155 cm (09/20/22 11:47 AM) Weight 71.81 kg (09/20/22 11:47 AM) Body Mass Index [18.5-24.99 kg/m2] 29.89 kg/m2 *H* (09/20/22 11:47 AM) Blood Pressure [90-138/55-84 mm Hg] 128/ 63mm Hg (09/20/22 11:47 AM) Blood pressure sites Arm, left (09/20/22 11:47 AM) Weight Obtained Via Standing scale (09/20/22 11:47 AM) Social History Social History Type Response Smoking Status Never (less than 100 in lifetime) entered on: 07/20/19 Sex Patient Care team information Care Team Personnel Name: Priya PERAZA, Phuong Jacobs Position: [facility] ELECTRICAL SIGN WIRER MD Member Role: Lifetime Consulting Physician Address: Address: [address] [place] [address], [address] Name: Not on Staff, PCP Position: [facility] Physician (General Medicine) Member Role: PCP Care Team Related Persons Name: JEANNIE YANEZ Address: home [address] [place] [address] Name: RAVINDER FERNANDES Address: [address] [place] [address] Name: CHARLOTTE FERNANDES Name: DARBY MERCEDES Address: home [address] [place] [address]
--- OUTSIDE RECORDS SUMMARY | 2024-01-29 07:14 | XMS_ITS | Continuity of Care Document ---
Author Organization [facility] [employer] [employer] Address [address] [facility], 4t [place] [address]- Care Team Providers Care Code And Test Clerk Name Role Phone Marva Mosley MD Primary Care Physician Encounter [facility] Date(s): 03/15/21 - 04/14/21 [facility] [employer] [address], 4th Floor [place], [place] [address] Attending Physician: Aniya Paige Admitting Physician: Aniya Paige Referring Physician: AdmtrAniya Allergies, Adverse Reactions, Alerts Substance Reaction Severity Status NKA Active Medications Cryselle 28 oral tablet 1 tablet, By Mouth, Daily, take 21 days of active tablets then skip placebos and start the next pack, # 84 tablet, 1 Refills, Maintenance, 08/24/20 13:00:00 EST, Tablet, [facility]/pharmacy #[id number], 1 tablet By Mouth Daily,Instr:take 21 [...] 84 tablet, 4 Refills, Maintenance, [id number], 63, TAKE 1 TAB BY MOUTH DAILY,TAKE 21 DAYS OF ACTIVE TABLETS THEN SKIP PLACEBO... Start Date: 03/11/21 Status: Ordered Problem List Condition Effective Dates Status Health Status Inform ant Migraines(Confirmed) Active Social History Social History Type Response Smoking Status Never (less than 100 in lifetime) entered on: 07/20/19 Sex
--- OUTSIDE RECORDS SUMMARY | 2024-01-29 07:15 | XMS_ITS | Continuity of Care Document ---
Author Organization [facility] Address [address], 4t [place] [address]- Care Team Providers Care Gate Technician Name Role Phone Marva Mosley MD Primary Care Physician [id number]10[facility]21 - 04/09/21 [facility] [address], [address]th [place] [address]- Allergies, Adverse Reactions, Alerts Substance Reaction Severity Status NKA Active Medications Cryselle 28 oral tablet 1 tablet, By Mouth, Daily, take 21 days of active tablets then skip placebos and start the next pack, # 84 tablet, 1 Refills, Maintenance, 08/24/20 13:00:00 EST, Tablet, [facility]/pharmacy #[id number], 1 tablet By Mouth Daily,Instr:take 21 [...] 84 tablet, 4 Refills, Maintenance, [id number], 63, TAKE 1 TAB BY MOUTH DAILY,TAKE 21 DAYS OF ACTIVE TABLETS THEN SKIP PLACEBO... Start Date: 03/11/21 Status: Ordered Problem List Condition Effective Dates Status Health Status Inform ant Migraines(Confirmed) Active Social History Social History Type Response Smoking Status Never (less than 100 in lifetime) entered on: 07/20/19 Sex
--- OUTSIDE RECORDS SUMMARY | 2024-01-29 07:15 | XMS_ITS | Continuity of Care Document ---
Author Organization [facility] ter Address [address] [place] [address]- Care Team Providers Care Chicken Handler Name Role Phone Marva Mosley MD Primary Care Physician [phone] [place] [facility] Date(s[place] 04/27/22 - 04/28/[address] [address]- Discharge Disposition: A-D/C Walkout Attending Physician: Not on Staff, Attending MD Admitting Physician: Not on Staff, Admitting MD Referring Physician: Not on Staff, Referring MD Allergies, Adverse Reactions, Alerts No Known Allergies Immunizations Given and Recorded Vaccine Date Status Refusal Reason SARS-CoV-2 (COVID-19) mRNA-1273 vaccine 08/15/21 R ecorded SARS-CoV-2 (COVID-19) mRNA-1273 vaccine 09/16/20 R ecorded SARS-CoV-2 (COVID-19) mRNA-1273 vaccine 08/19/20 R ecorded Medications FLUoxetine (Eqv-Prozac) 10 mg oral tablet 1 [...] PLACEBOS AND START THE NEXT PACK, # 112 tablet, 0 Refills, 04/09/22 16:09:00 EDT, [facility]/pharmacy #[id number], 84, TAKE 1 TAB BY MOUTH DAILY,TAKE 21 DAYS OF ACTIVE TABLETS THE... Start Date: 04/09/22 Status: Ordered Problem List Condition Confirmation Course Effective Dates Status Health St atus Informant Migraines Confirmed Active Vital Signs Most recent to oldest [Reference Range]: 1 2 Height 155 cm (04/27/22 10:47 PM) Weight 71.5 kg (04/27/22 10:47 PM) Oxygen Saturation [94-100 %] 100 % (04/27/22 10:47 PM) 99 % (04/27/22 10:41 PM) Pulse Rate [55-90 bpm] 110 bpm *H* (04/27/22 10:47 PM) 110 bpm *H* (04/27/22 10:41 PM) Body Mass Index [18.5-24.99 kg/m2] 29.76 kg/m2 *H* (04/27/22 10:47 PM) Blood Pressure [90-138/55-84 mm Hg] 138/ 88mm Hg (04/27/22 10:47 PM) Respiratory Rate [16-30 br/min] 20 br/mi n (04/27/22 10:47 PM) 18 br/min (04/27/22 10:41 PM) Temperature [96.8-100.4 DegF] 98.2 DegF (04/27/22 10:47 PM) Mode of Delivery (Oxygen) Room air (04/27/22 10:47 PM) Blood pressure sites Arm, right (04/27/22 10:47 PM) Temperature Route Oral (04/27/22 10:47 PM) Dry Weight 71.5 kg (04/27/22 10:47 PM) Weight Obtained Via Standing scale (04/27/22 10:47 PM) Dry Weight Obtained Via Standing scale (04/27/22 10:47 PM) Social History Social History Type Response Smoking Status Never (less than 100 in lifetime) entered on: 07/20/19 Sex Patient Care team information Personnel Name: Marva Mosley MD Address: Address: [address] [facility], [place], [place] [address]
--- OUTSIDE RECORDS SUMMARY | 2024-01-29 07:15 | XMS_ITS | Continuity of Care Document ---
Author Organization [facility] [employer] Address [address] [place] [address], [address]t [place] [address]- Care Team Providers Care Blue Crabber Name Role Phone Not on Staff, PCP Primary Care Physician Unavail able Encounter [facility] Date(s): 03/15/23 - 03/22/23 [facility] The[facility]ulio Kumar[facility] [address] [facility], 4th [place] [address]- Attending Physician: Jose Perez MD Referring Physician: Not on Staff, Referring MD Allergies, Adverse Reactions, Alerts No Known Allergies Immunizations Given and Recorded Vaccine Date Status Refusal Reason SARS-CoV-2 (COVID-19) mRNA-1273 vaccine 08/15/21 R ecorded SARS-CoV-2 (COVID-19) mRNA-1273 vaccine 09/16/20 R ecorded SARS-CoV-2 (COVID-19) mRNA-1273 vaccine 08/19/20 R ecorded Medications Liletta 1 each, Intrauterine, Once, Office supplied and inserted by Adriana Wayne [facility] on 08/06/22 lot#[id number] exp 04/2025 [facility]#[id number], # 1 each, 0 Refills, Maintenance, 07/31/22 14:40:00 EST, Partial fill upon patient request if the prescription is fo... Start Date: 07/31/22 Status: Ordered Problem List Condition Confirmation Course Effective Dates Status Health St atus Informant Migraines Confirmed Active Obese class I Confirmed Active Vital Signs Most recent to oldest [Reference Range]: 1 Height 155 cm (03/15/23 3:26 PM) Weight 78.0 kg (03/15/23 3:26 PM) Pulse Rate [55-90 bpm] 88 bpm (03/15/23 3:26 PM) Body Mass Index [18.5-24.99 kg/m2] 32.47 kg/m2 *>HHI* (03/15/23 3:26 PM) Blood Pressure [90-138/55-84 mm Hg] 119/ 71mm Hg (03/15/23 3:26 PM) Blood pressure sites Arm, right (03/15/23 3:26 PM) Dry Weight 78.0 kg (03/15/23 3:26 PM) Weight Obtained Via Standing scale (03/15/23 3:26 PM) Dry Weight Obtained Via Standing scale (03/15/23 3:26 PM) Social History Social History Type Response Smoking Status Never (less than 100 in lifetime) entered on: 07/20/19 Sex Patient Care team information Care Team Personnel Name: Priya PERAZA, Phuong Jacobs Position: [facility] RAIL TRANSIT OPERATOR MD Member Role: Lifetime Consulting Physician Address: Address: [address] [place] [address], [address] Name: Not on Staff, PCP Position: [facility] Physician (General Medicine) Member Role: PCP Care Team Related Persons Name: JEANNIE YANEZ Address: [address] [place] [address] Name: RAVINDER FERNANDES Address: [address] [place] [address] Name: CHARLOTTE FERNANDES Name: DARBY MERCEDES Address: home [address] [place] [address]
--- OUTSIDE RECORDS SUMMARY | 2024-01-29 07:15 | XMS_ITS | Continuity of Care Document ---
Author Organization [facility] Dev[facility] Address [address] [place] [address], 4t [place] [address]- Care Team Providers Care Shovel Logger Name Role Phone Not on Staff, PCP Primary Care Physician Unavail able [place] [facility] [place] [facility]/16/23 - [facility] [address] [facility], [address]th [place], [place] [address] Attending Physician: Aniya Paige Admitting Physician: Aniya Paige Referring Physician: AdmtrAniya Allergies, Adverse Reactions, Alerts No Known Allergies Immunizations Given and Recorded Vaccine Date Status Refusal Reason SARS-CoV-2 (COVID-19) mRNA-1273 vaccine 08/15/21 R ecorded SARS-CoV-2 (COVID-19) mRNA-1273 vaccine 09/16/20 R ecorded SARS-CoV-2 (COVID-19) mRNA-1273 vaccine 08/19/20 R ecorded Medications Nexplanon 68 mg subcutaneous implant 1 each = 68 mg, Subcutaneous Infusion, Once, # 1 each, 0 Refills, Soft Stop, 05/15/23 10:21:00 EDT,[facility], Partial fill upon patient request if the prescription is for a schedule II opioid drug., 155, cm, 05/13/23 21:19:00 EDT, H... Start Date: 05/15/23 Status: Ordered norethindrone 0.35 mg oral tablet 1 tablet = 0.35 mg, By Mouth, Daily, # 28 tablet, 1 Refills, Maintenance, 07/19/23 8:46:00 EST, Tablet, [facility]/pharmacy #[id number], Partial fill upon patient request if the prescription is for a schedule II opioid drug., 155, cm, 06/19/23 12:23:00 EST, Height... Start Date: 07/19/23 Status: Ordered Problem List Condition Confirmation Course Effective Dates Status Health St atus Informant Ovarian cyst, bilateral Confirmed Active Obese class I Confirmed Active Chronic migraine with aura Confirmed Active Social History Social History Type Response Smoking Status Never (less than 100 in lifetime) entered on: 07/18/18 Sex Patient Care team information Care Team Personnel Name: Priya PERAZA, Phuong Jacobs Position: [facility] DRAWING BOX TENDER MD Member Role: Lifetime Consulting Physician Address: Address: [address] [place] [address], [address] Name: Not on Staff, PCP Position: [facility] Physician (General Medicine) Member Role: PCP Care Team Related Persons Name: JEANNIE YANEZ Address: [address] [place] [address] Name: ARVINDER FERNANDES Address: [address] [place] [address] Name: CHARLTOTE FERNANDES Name: DARBY MERCEDES Address: [address] [place] [address]
--- OUTSIDE RECORDS SUMMARY | 2024-01-29 07:15 | XMS_ITS | Continuity of Care Document ---
Author Organization [facility] Address [address] [facility] [place] [address]- Care Team Providers Care Bindery Machine Setter/Set Up Operator Name Role Phone Not on Staff, PCP Primary Care Physician Unavail able Encounter 04/23/23 - 04/30/23 [facility] [address] [facility], [address] [place] [address]- [place] Attending Physician: Kyrie Donis Admitting Physician: Kyrie Donis Referring Physician: Kyrie Donis Allergies, Adverse Reactions, Alerts No Known Allergies Immunizations Given and Recorded Vaccine Date Status Refusal Reason SARS-CoV-2 (COVID-19) mRNA-1273 vaccine 08/15/21 R ecorded SARS-CoV-2 (COVID-19) mRNA-1273 vaccine 09/16/20 R ecorded SARS-CoV-2 (COVID-19) mRNA-1273 vaccine 08/19/20 R ecorded Medications Liletta 1 each, Intrauterine, Once, Office supplied and inserted by Adriana Wayne [facility] on 08/06/22 lot#[id number] exp 04/2025 [facility]#[id number], # 1 each, 0 Refills, Maintenance, 07/31/22 14:40:00 EST, Partial fill upon patient request if the prescription is fo... Start Date: 07/31/22 Status: Ordered Problem List Condition Confirmation Course Effective Dates Status Health St atus Informant Migraines Confirmed Active Obese class I Confirmed Active Results Radiology Reports * Exam Date Time Procedure Performing Provider Status 04/23/23 11:40 AM US Pelvic Transvaginal Rima Cervantes ie; Auth (Verified) Notes: (US Pelvic Transvaginal) Reason For Exam: right ovarian cyst follow up. hx of 5.1 x 4.1 x 3.1 cm cyst at [facility] ED visit.;Pain RESULT: US Pelvic Transvaginal US Pelvic Transabdominal, US Pelvic Transvaginal Reason: Pain; right ovarian cyst follow up. hx of 5.1 x 4.1 x 3.1 cm cyst at [facility] visit; Order Comment: US Pelvic Non-Ob Comp Prep COMPARISON: 10/04/2022 TECHNIQUE: Transabdominal and transvaginal ultrasound with grayscale and color Doppler analysis. FINDINGS: UTERUS: Size: 8.2 x 4.2 x 4.8 cm, volume 87 cc. Endometrial thickness: 0.5 cm. Morphology: Normal configuration and echotexture. JEAN CLAUDE and the endometrial canal. RIGHT OVARY: Size: 4.4 x 2.7 x 3.2 cm, volume 20 cc. Morphology: Normal echotexture. There is a right ovarian cyst which measures up to 3.4 cm. Normal color Doppler appearance. LEFT OVARY: Size: 6.2 x 5.7 x X.2 cm, volume 144 cc. Morphology: Normal echotexture. There is a left ovarian simple cyst which measures up to 5.8 cm. Normal color Doppler appearance. ADNEXA: Normal. No adnexal masses or fluid collections. IMPRESSION: Appropriate positioned IUD. Simple adnexal cysts, almost certainly benign, but should be followed yearly with ultrasound in a woman of reproductive age. Recommend pelvic ultrasound in 12 months. Recommendations for adnexal cyst follow-up per Society of Radiologists in Ultrasound 2009 consensusstatement on management of asymptomatic and ovarian and other adnexal cysts (Lloyd et al., Radiology 2010 256: 943-54). WSN: [id number] Ordering Physician: Kyrie Hercules Dictated By: Priscila Bradley MD Dictated Date/Time: 04/24/23 10:43 a Reviewed By: Priscila Bradley MD Signed By: Priscila Bradley MD Signed Date/Time: 04/24/23 10:43 am Transcribed By: ASAF Transcribed Date/Time: 04/23/23 11:59 am * Exam Date Time Procedure Performing Provider Status 04/23/23 11:40 AM US Pelvic Transabdominal Michael Cervantes; Auth (Verified) Notes: (US Pelvic Transabdominal) Reason For Exam: right ovarian cyst follow up. hx of 5.1 x 4.1 x 3.1 cm cyst at [facility] ED visit;Pain RESULT: US Pelvic Transabdominal US Pelvic Transabdominal, US Pelvic Transvaginal Reason: Pain; right ovarian cyst follow up. hx of 5.1 x 4.1 x 3.1 cm cyst at [facility] visit; Order Comment: US Pelvic Non-Ob Comp Prep COMPARISON: 10/04/2022 TECHNIQUE: Transabdominal and transvaginal ultrasound with grayscale and color Doppler analysis. FINDINGS: UTERUS: Size: 8.2 x 4.2 x 4.8 cm, volume 87 cc. Endometrial thickness: 0.5 cm. Morphology: Normal configuration and echotexture. JEAN CLAUDE and the endometrial canal. RIGHT OVARY: Size: 4.4 x 2.7 x 3.2 cm, volume 20 cc. Morphology: Normal echotexture. There is a right ovarian cyst which measures up to 3.4 cm. Normal color Doppler appearance. LEFT OVARY: Size: 6.2 x 5.7 x X.2 cm, volume 144 cc. Morphology: Normal echotexture. There is a left ovarian simple cyst which measures up to 5.8 cm. Normal color Doppler appearance. ADNEXA: Normal. No adnexal masses or fluid collections. IMPRESSION: Appropriate positioned IUD. Simple adnexal cysts, almost certainly benign, but should be followed yearly with ultrasound in a woman of reproductive age. Recommend pelvic ultrasound in 12 months. Recommendations for adnexal cyst follow-up per Society of Radiologists in Ultrasound 2009 consensusstatement on management of asymptomatic and ovarian and other adnexal cysts (Lloyd et al., Radiology 2010 256: 943-54). WSN: [id number] Ordering Physician: Kyrie Hercules Dictated By: Priscila Bradley MD Dictated Date/Time: 04/24/23 10:43 a Reviewed By: Priscila Bradley MD Signed By: Priscila Bradley MD Signed Date/Time: 04/24/23 10:43 am Transcribed By: ASAF Transcribed Date/Time: 04/23/23 11:59 am Social History Social History Type Response Smoking Status Never (less than 100 in lifetime) entered on: 07/20/19 Sex Patient Care team information Care Team Personnel Name: Priya PERAZA, Phuong Jacobs Position: [facility] HIGH SCHOOL HISTORY TEACHER MD Member Role: Lifetime Consulting Physician Address: Address: [address] [place] [address], [address] [facility] [place], [place] [address] Name: Not on Staff, PCP Position: [facility] Physician (General Medicine) Member Role: PCP Care Team Related Persons Name: JEANNIE YANEZ Address: [address] [place] [address] Name: RAVINDER FERNANDES Address: [address] [place] [id number] Name: CHARLOTTE FERNANDES Name: DARBY MERCEDES Address: [address] [place] [address]
--- OUTSIDE RECORDS SUMMARY | 2024-01-29 07:15 | XMS_ITS | Continuity of Care Document ---
Author Organization [facility] Deven nMaimaibaos [facility] Address [address], 4t [place] [address]- Care Team Providers Care Turbine Subassembler Name Role Phone Not on Staff, PCP Primary Care Physician Unavail able Encounter [facility] Date(s): 06/12/23 - 07/12/23 [facility] Mp StacyMaimaibaos [facility] [address], 4th [place] [address]- Allergies, Adverse Reactions, Alerts No Known Allergies Immunizations Given and Recorded Vaccine Date Status Refusal Reason SARS-CoV-2 (COVID-19) mRNA-1273 vaccine 08/15/21 R ecorded SARS-CoV-2 (COVID-19) mRNA-1273 vaccine 09/16/20 R ecorded SARS-CoV-2 (COVID-19) mRNA-1273 vaccine 08/19/20 R ecorded Medications naproxen 500 mg oral tablet 1 tablet = 500 mg, By Mouth, 2 times a day, PRN for pain, for 10 days, # 20 tablet, 2 Refills, Acute 07/19/23 13:42:00 EST, 06/19/23 13:42:00 EST, Tablet, [facility]/pharmacy #[id number], Partial fill upon patient request if the prescription is for a schedule II o... Start Date: 06/19/23 Stop Date: 07/19/23 Status: Ordered Nexplanon 68 mg subcutaneous implant 1 each = 68 mg, Subcutaneous Infusion, Once, # 1 each, 0 Refills, Soft Stop, 05/15/23 10:21:00 EDT,[facility], Partial fill upon patient request if the prescription is for a schedule II opioid drug., 155, cm, 05/13/23 21:19:00 EDT, H... Start Date: 05/15/23 Status: Ordered Problem List Condition Confirmation Course Effective Dates Status Health St atus Informant Migraines Confirmed Active Obese class I Confirmed Active Social History Social History Type Response Smoking Status Never (less than 100 in lifetime) entered on: 07/20/19 Sex Patient Care team information Care Team Personnel Name: Priya PERAZA, Phuong Jacobs Position: [facility] COBBLER SOLE MD Member Role: Lifetime Consulting Physician Address: Address: [address] [place] [address], [address] [facility] [address] Name: Not on Staff, PCP Position: [facility] Physician (General Medicine) Member Role: PCP Care Team Related Persons Name: JEANNIE YANEZ Address: [address] [place] [address] Name: RAVINDER FERNANDES Address: [address] [place] [address] Name: CHARLOTTE FERNANDES Name: DARBY MERCEDES Address: [address] [place] [address]
--- OUTSIDE RECORDS SUMMARY | 2024-01-29 07:15 | XMS_ITS | Continuity of Care Document ---
Author Organization [facility] [employer] Address [address] [place] [address], 4t [place] [address]- Care Team Providers Care Events Director Name Role Phone Marva Mosley MD Primary Care Phys[id number] Date[facility]s): 07/20/19 - 07/27/19 [facility] [employer] [address] [facility], 4th [place] [address]- Attending Physician: Priya PERAZA, Phuong Jacobs Allergies, Adverse Reactions, Alerts Substance Reaction Severity Status NKA Active Medications Cryselle 28 oral tablet 1 tablet, By Mouth, Daily, take 21 days of active tablets then skip placebos and start the next pack, # 84 tablet, 6 Refills, Maintenance, 07/20/19 10:35:00 EST, Tablet, [id number], 1 tablet By Mouth Daily,Instr:take 21 days of active tablets... Start Date: 07/20/19 Status: Ordered Macrobid macrocrystals-monohydrate 100 mg oral capsule 1 capsule = 100 mg, By Mouth, 2 times a day, for 10 days, # 20 capsule, 0 Refills, Acute 07/30/19 10:34:00 EST, 07/20/19 10:34:00 EST, Capsule, [id number], 155, cm, 07/20/19 10:23:00 EST, Height Start Date: 07/20/19 Stop Date: 07/30/19 Status: Ordered Problem List Condition Effective Dates Status Health Status Inform ant Migraines(Confirmed) Active Vital Signs Most recent to oldest [Reference Range]: 1 Height 155 cm (07/20/19 10:23 AM) Weight 67.7 kg (07/20/19 10:23 AM) Body Mass Index [18.5-24.99] 28.18 *H* (07/20/19 10:23 AM) Blood Pressure [90-138/55-84 mm Hg] 122/ 68mm Hg (07/20/19 10:23 AM) Temperature [96.8-100.4 DegF] 98.1 DegF (07/20/19 10:23 AM) Blood pressure sites Arm, right (07/20/19 10:23 AM) Weight Obtained Via Standing scale (07/20/19 10:23 AM) Social History Social History Type Response Smoking Status Never (less than 100 in lifetime) entered on: 07/20/19 Sex
--- OUTSIDE RECORDS SUMMARY | 2024-01-29 07:15 | XMS_ITS | Continuity of Care Document ---
Author Organization [facility] Deven [employer] [facility] Address [address] [facility], 4t [place] [address]- Care Team Providers Care Client Technical Specialist Name Role Phone Marva Mosley MD Primary Care Physician En[place] [facility] Date(s): 11/22/20 - 12/22/20 [facility] [employer] [address] [facility], 4th Floor [place], [place] [address] Attending Physician: Aniya Paige Admitting Physician: Aniya Paige Referring Physician: Aniya Paige Allergies, Adverse [...]
--- OUTSIDE RECORDS SUMMARY | 2024-01-29 07:15 | XMS_ITS | Continuity of Care Document ---
Author Organization [facility]en [employer] [facility] Address [address] [facility], 4t [place] [address]- Care Team Providers Care Microbiology Technologist Name Role Phone Melany PERAZA, Marva Primary Care Physician [place] [facility] Date(s): 08/24/20 - 09/23/20 [facility]ulio Kumar[facility] [address] [facility], 4th [place] [address]- Allergies, Adverse Reactions, Alerts Substance Reaction Severity [...]
--- OUTSIDE RECORDS SUMMARY | 2024-01-29 07:15 | XMS_ITS | Continuity of Care Document ---
Author Organization [facility]p [employer] Address [address] [place] [address], 4[address] [place] [address]- Care Team Providers Care Development Associate Name Role Phone Ok Rene DO Rufino Primary Care Physician [phone] [id number] Date(s): 01/09/24 - 01/16/24 [email or web address] [address] [facility] [place], [address] [place] [address]- Attending Physician: Ayush Tatum MD Referring Physician: Kyrie Donis Allergies, Adverse Reactions, Alerts No Known Allergies Immunizations Given and Recorded Vaccine Date Status Refusal Reason SARS-CoV-2 (COVID-19) mRNA-1273 vaccine 08/15/21 R ecorded SARS-CoV-2 (COVID-19) mRNA-1273 vaccine 09/16/20 R ecorded SARS-CoV-2 (COVID-19) mRNA-1273 vaccine 08/19/20 R ecorded Medications duloxetine duloxetine, 0 Refills, Maintenance, 12/17/23 8:43:00 EDT Start Date: 12/17/23 Status: Ordered Low-Ogestrel 30 mcg-0.3 mg oral tablet See Instructions, TAKE 1 TAB BY MOUTH DAILY,TAKE 21 DAYS OF ACTIVE TABLETS THEN SKIP PLACEBOS AND START THE NEXT PACK. At the end of every 4th pack take placebo pills before starting next pack., # 112 tablet, 4 Refills, 01/09/24 13:35:00 EDT, [facility] Start Date: 01/09/24 Status: Ordered Nexplanon 68 mg subcutaneous implant 1 each = 68 mg, Subcutaneous Infusion, Once, # 1 each, 0 Refills, Soft Stop, 05/15/23 10:21:00 EDT,[facility], Partial fill upon patient request if the prescription is for a schedule II opioid drug., 155, cm, 05/13/23 21:19:00 EDT, H... Start Date: 05/15/23 Status: Ordered Problem List Condition Confirmation Course Effective Dates Status Health St atus Informant Ovarian cyst, bilateral Confirmed Active Obese class I Confirmed Active Chronic migraine with aura Confirmed Active Vital Signs Most recent to oldest [Reference Range]: 1 Height 155 cm (01/09/24 1:13 PM) Weight 79.4 kg (01/09/24 1:13 PM) Pulse Rate [55-90 bpm] 93 bpm *H* (01/09/24 1:13 PM) Body Mass Index [18.5-24.99 kg/m2] 33.05 kg/m2 *>HHI* (01/09/24 1:13 PM) Blood Pressure [90-138/55-84 mm Hg] 120/ 76mm Hg (01/09/24 1:13 PM) Blood pressure sites Arm, right (01/09/24 1:13 PM) Dry Weight 79.4 kg (01/09/24 1:13 PM) Weight Obtained Via Standing scale (01/09/24 1:13 PM) Dry Weight Obtained Via Standing scale (01/09/24 1:13 PM) Social History Social History Type Response Smoking Status Never (less than 100 in lifetime) entered on: 07/18/18 Sex Note * Jasmin Barry: PERFORM Event Display: Patient Education/Instruction Authored Date: [id number] Ambulatory Adult Visit Summary [facility] [facility] [address] [place] [address] Name: HILARY FERNANDES : 2000?? Visit: 01/09/2024 12:46?? Ambulatory Visit Instructions ?? Your Care Team Primary Care Provider Ok Rene DO? This Visit Provider Ayush Tatum MD Your Diagnosis Breakthrough bleeding on Nexplanon Vitals Signs Pulse Rate:??93 bpm??High Height: 155 cm Systolic Blood Pressure: 120 mm Hg Weight: 79.4 kg Diastolic Blood Pressure: 76 mm Hg Body Mass Index:??33.05 kg/m2??Critical ?? Body surface area: 1.85 What to do next Scheduled Follow-Up Appointments 2023 4:20 PM EDT ?? With: Deepti PERAZA, Ayush Alicea Where: [facility] [address] [place] [address]- Status: Pending Medications The list below reflects the information in our records and provided by you today along with any changes made during this visit. Please continue your medications until treatment is completed or stopped by your provider. If this is different from the information you have or there are other questions,please contact the prescribing provider. What How Much When Instructions New Ethinyl Estradiol-Norgestrel (Low-Ogestrel 30 mcg-0.3 mg oral tablet) See instructions Refills: 4 TAKE 1 TAB BY MOUTH DAILY,TAKE 21 DAYS OF ACTIVE TABLETS THEN SKIP PLACEBOS AND START THE NEXT PACK. At the end of every 4th pack take placebo pills before starting next pack. ?? Pickup at [id number] Unchanged Etonogestrel (Nexplanon 68 mg subcutaneous implant) 1 Each Subcutaneous Infusion Once Unchanged Miscellaneous Rx (duloxetine) Pharmacy Information [facility][id number]: [address], [place] [id number] [phone] ?? What How Much When Comments Stop Taking Norethindrone (norethindrone 0.35 mg oral tablet) 1 tab(s) Oral Daily Medications and Immunizations Administered Medications Given During Visit No medications given during this visit.?? Allergies (NKA means No Known Allergies) NKA Common Emergency Awareness Tips IS IT A STROKE? Act FAST and Check for these signs: FACE Does the face look uneven? ARM Does one arm drift down? SPEECH Does their speech sound strange? TIME Call at any sign of stroke ?? Heart Attack Signs Chest discomfort: Most heart attacks involve discomfort in the center of the chest and lasts more than a few minutes, or goes away and comes back. It can feel like uncomfortable pressure, squeezing, fullness or pain. Discomfort in upper body: Symptoms can include pain or discomfort in one or both arms, back, neck, jaw or stomach. Shortness of breath: With or without discomfort. Other signs: Breaking out in a cold sweat, nausea, or lightheaded. Remember, MINUTES DO MATTER. If you experience any of these heart attack warning signs, call to get immediate medical attention! ?? Smoking can increase your chances of developing chronic health problems and can cause harmful effects to other family members in your house. If you smoke, you are strongly encouraged to quit. Please call [facility] [employer] Link at [phone] or [phone]-Needcheck ([phone]) or log in to [email or web address] for referrals to smoking cessation programs. ?? The National Suicide Prevention Hotline is available 18/02 if you or someone you know needs to find a reason to keep living. By calling 0-041-489-TheFanLeague (5866) you'll be connected to a skilled, trained counselor at a crisis center in your area. [facility] Portal You can view and manage your care through the patient portal or by using a health care sadi of your choosing. [employer] is a website that allows you to securely view your medical information including your hospital discharge summary, office visit summaries, medications and follow-up visits. You can also request appointments, renew medications, and request access to your medical information using a health care sadi of your choosing, or just ask a question. You can enroll at [email or web address] or register during your next office visit. [facility], in keeping with [facility] guidance, no longer requires face masks for staff, patientsor visitors in most situations. Similiar to time spent indoors at other locations, there is the chance that you were exposed to repiratory viruses during your time with us (such as flu or COVID-19). If you develop symptoms concerning for a viral respiratory infection, please seek testing (and treatment if indicated) from your medical provider or home test kit. ?? Disclaimer: The information provided is of a general nature and is intended to be used in conjunction with the recommendations and advice of your health care practitioner. Every effort has been made to ensure that the information provided is accurate and complete at the time it is provided to you however, as your needs change, or, as new information becomes available, different or additional instructions may be required. ?? If you have questions, please consult with your primary care provider or pharmacist, as appropriate. This information is not intended to serve as substitution for assessment and evaluation by a qualified health care provider. If you do not have a primary care provider, you may find a [facility] provider by calling [facility] Link at [phone]. Patient Care team information Care Team Personnel Name: Priya PERAZA, Phuong Jacobs Position: [facility] [employer]OMAT[employer] SAWYER MD Member Role: Lifetime Consulting Physician Address: Address: [address] [place] [address], [address] [facility] [place] [place] [address]- Name: Ok Rene DO Position: Reference Physician Member Role: PCP Address: Address: [address] [place] [address]- Care Team Related Persons Name: JEANNIE YANEZ Address: [address] [place] [address] Name: RAVINDER FERNANDES Address: [address] [place] [address] Name: CHARLOTTE FERNANDES Name: DARBY MERCEDES Address: [address] [place] [address]
--- OUTSIDE RECORDS SUMMARY | 2024-01-29 07:15 | XMS_ITS | Continuity of Care Document ---
Author Organization [facility] Deven n[facility] Address [address] [place] [address], [address] [place] [address]- Care Team Providers Care Front Clerk Name Role Phone Not on Staff, PCP Primary Care Physician Unavail able [place] [facility] [place] 10/[place]/22 [facility] [address] [facility], [address] [place], [place] [address] Attending Physician: AdmAniya giron Admitting Physician: AdmtrAniya Referring Physician: Admtr, Ar8 Allergies, Adverse Reactions, Alerts No Known Allergies Immunizations Given and Recorded Vaccine Date Status Refusal Reason SARS-CoV-2 (COVID-19) mRNA-1273 vaccine 08/15/21 R ecorded SARS-CoV-2 (COVID-19) mRNA-1273 vaccine 09/16/20 R ecorded SARS-CoV-2 (COVID-19) mRNA-1273 vaccine 08/19/20 R ecorded Medications Liletta 1 each, Intrauterine, Once, Office supplied and inserted by Adriana Wayne [facility] on 08/06/22 lot#[id number] exp 04/2025 [facility]#[id number], # 1 each, 0 Refills, Maintenance, 07/31/22 14:40:00 EST, Partial fill upon patient request if the prescription is fo... Start Date: 07/31/22 Status: Ordered Problem List Condition Confirmation Course Effective Dates Status Health St atus Informant Migraines Confirmed Active Social History Social History Type Response Smoking Status Never (less than 100 in lifetime) entered on: 07/20/19 Sex Patient Care team information Care Team Personnel Name: Phuong Powers MD Position: S CLEANING TEAM MEMBER MD Member Role: Lifetime Consulting Physician Address: Address: [facility], [address] [facility] [place], [place] [address] Name: Not on Staff, PCP Position: S Physician (General Medicine) Member Role: PCP Care Team Related Persons Name: JEANNIE YANEZ Address: [address] [place] [address] Name: RAVINDER FERNANDES Address: [address] [place] [address] Name: CHARLOTTE FERNANDES Name: DARBY MERCEDES Address: home [address] [place] [address]
--- OUTSIDE RECORDS SUMMARY | 2024-01-29 07:15 | XMS_ITS | Continuity of Care Document ---
Author Organization [facility] Deven [employer] Address [address] [place] [address], [address] [place] [address]- Care Team Providers Care Farm Rancher Name Role Phone Marva Mosley MD Primary Care Physician Encounter [facility] [id number] Date(s): 03/15/21 - 03/22/21 [facility] Mpjulio Kumar[employer] [address] [facility], [address] [place], [place] [address] Attending Physician: Shelia Frausto DO Referring Physician: Not on Staff, Referring MD Allergies, Adverse Reactions, Alerts Substance Reaction [...] 84 tablet, 4 Refills, Maintenance, [id number], 63, TAKE 1 TAB BY MOUTH DAILY,TAKE 21 DAYS OF ACTIVE TABLETS THEN SKIP PLACEBO... Start Date: 03/11/21 Status: Ordered Problem List Condition Effective Dates Status Health Status Inform ant Migraines(Confirmed) Active Vital Signs Most recent to oldest [Reference Range]: 1 Height 155 cm (03/15/21 2:18 PM) Weight 70.00 kg (03/15/21 2:18 PM) Body Mass Index [18.5-24.99] 29.14 *H* (03/15/21 2:18 PM) Blood Pressure [90-138/55-84 mm Hg] 123/ 77mm Hg (03/15/21 2:18 PM) Blood pressure sites Arm, left (03/15/21 2:18 PM) Weight Obtained Via Standing scale (03/15/21 2:18 PM) Social History Social History Type Response Smoking Status Never (less than 100 in lifetime) entered on: 07/20/19 Sex
--- OUTSIDE RECORDS SUMMARY | 2024-01-29 07:15 | XMS_ITS | Continuity of Care Document ---
Author Organization [facility]en n[facility] Address [address] [place] [address], 4t [place] [address]- Care Team Providers Care Oil Burner Repairer Name Role Phone Marva Mosley MD Primary Care Physician En[place] [facility] Date(s): 07/31/22 - 08/07/22 [facility] [employer] [facility] [address] [facility], 4th [address] [place], [place] [address] Attending Physician: Jose Perez MD Referring Physician: Not on Staff, Referring MD Allergies, Adverse Reactions, Alerts No Known Allergies Immunizations Given and Recorded Vaccine Date Status Refusal Reason SARS-CoV-2 (COVID-19) mRNA-1273 vaccine 08/15/21 R ecorded SARS-CoV-2 (COVID-19) mRNA-1273 vaccine 09/16/20 R ecorded SARS-CoV-2 (COVID-19) mRNA-1273 vaccine 08/19/20 R ecorded Medications doxycycline hyclate 100 mg oral capsule 1 capsule = 100 mg, By Mouth, 2 times a day, for 7 days, with fluids may take with food to minimizeabdominal discomfort, # 14 capsule, 0 Refills, Acute 08/13/22 9:17:00 EST, 08/06/22 9:17:00 EST, Capsule, [id number], Partial fill upon patien... Start Date: 08/06/22 Stop Date: 08/13/22 Status: Ordered Liletta 1 each, Intrauterine, Once, Office supplied and inserted by Adriana Wayne [facility] on 08/06/22 lot#[id number] exp 04/2025 [facility]#[id number], # 1 each, 0 Refills, Maintenance, 07/31/22 14:40:00 EST, Partial fill upon patient request if the prescription is fo... Start Date: 07/31/22 Status: Ordered Problem List Condition Confirmation Course Effective Dates Status Health St atus Informant Migraines Confirmed Active Vital Signs Most recent to oldest [Reference Range]: 1 Height 155 cm (07/31/22 2:15 PM) Weight 71.81 kg (07/31/22 2:15 PM) Body Mass Index [18.5-24.99 kg/m2] 29.89 kg/m2 *H* (07/31/22 2:15 PM) Blood Pressure [90-138/55-84 mm Hg] 114/ 58mm Hg (07/31/22 2:15 PM) Blood pressure sites Arm, right (07/31/22 2:15 PM) Weight Obtained Via Standing scale (07/31/22 2:15 PM) Social History Social History Type Response Smoking Status Never (less than 100 in lifetime) entered on: 07/20/19 Sex Patient Care team information Care Team Personnel Name: Phuong Powers MD Position: [facility] REALTIME CAPTIONER MD Member Role: Lifetime Consulting Physician Address: Address: [address] [place] [address], [address] [place] [address]- Name: Marva Mosley MD Position: [facility] Physician (General Medicine) Member Role: PCP Address: Address: [address] [facility], [place] [address]- Care Team Related Persons Name: JEANNIE YANEZ Address: [address] [place] [address] Name: RAVINDER FERNANDES Address: [address] [place] [address] [place] Name: RAVINDER FERNANDES Address: [address] [place] [address] Name: CHARLOTTE FERNANDES Name: DARBY MERCEDES Address: home [address] [place] [address]
--- OUTSIDE RECORDS SUMMARY | 2024-01-29 07:15 | XMS_ITS | Continuity of Care Document ---
Author Organization [facility] Address [address] [place] [address], 4t [place] [address]- Care Team Providers Care Health Sciences Program Coordinator Name Role Phone Marva Mosley MD Primary Care Physician Encounter [facility] Date(s): 08/06/22 - 08/13/22 [facility] Mp [facility] [address] [facility], 4th Floor [place], [place] [address] Attending Physician: Nilton PERAZA, Rochelle Jacobs Referring Physician: Adriana Wayne CNM Allergies, Adverse Reactions, Alerts No Known Allergies Immunizations Given and Recorded Vaccine Date Status Refusal Reason SARS-CoV-2 (COVID-19) mRNA-1273 vaccine 08/15/21 R ecorded SARS-CoV-2 (COVID-19) mRNA-1273 vaccine 09/16/20 R ecorded SARS-CoV-2 (COVID-19) mRNA-1273 vaccine 08/19/20 R ecorded Medications Liletta 1 each, Intrauterine, Once, Office supplied and inserted by Adriana Wayne CNM on 08/06/22 lot#[id number] exp 04/2025 [facility]#[id number], # 1 each, 0 Refills, Maintenance, 07/31/22 14:40:00 EST, Partial fill upon patient request if the prescription is fo... Start Date: 07/31/22 Status: Ordered Problem List Condition Confirmation Course Effective Dates Status Health St atus Informant Migraines Confirmed Active Vital Signs Most recent to oldest [Reference Range]: 1 Height 155 cm (08/06/22 8:32 AM) Weight 71.5 kg (08/06/22 8:32 AM) Pulse Rate [55-90 bpm] 92 bpm *H* (08/06/22 8:32 AM) Body Mass Index [18.5-24.99 kg/m2] 29.76 kg/m2 *H* (08/06/22 8:32 AM) Blood Pressure [90-138/55-84 mm Hg] 105/ 54mm Hg (08/06/22 8:32 AM) Blood pressure sites Arm, right (08/06/22 8:32 AM) Dry Weight 71.5 kg (08/06/22 8:32 AM) Weight Obtained Via Standing scale (08/06/22 8:32 AM) Dry Weight Obtained Via Standing scale (08/06/22 8:32 AM) Social History Social History Type Response Smoking Status Never (less than 100 in lifetime) entered on: 07/20/19 Sex Note * Rosa Joseph: PERFORM, SIGN, VERIFY Event Display: Patient Education/Instruction Authored Date: [id number] [facility] *Martha CHIRINOS RFID ENGINEER Clinical Summary Name HILARY FERNANDES Age 22 Years 2000 PCP Marva Mosley MD PCP Visit Date 08/06/2022 07:35:00 Additional Instructions: Scheduled Appointments?? Future Appointments ?*Martha??LORRIE??RFID ENGINEER ?[address]??[place],??[place],??[address] ?Phone:??--?Fax:??-- ?Appt. Date:??09/20/2022?11:40 AM ?Scheduled Provider:??Adriana Wayne CNM Follow-Up Instructions ?? Diagnosis Encounter for routine checking of intrauterine contraceptive device Medications: Please continue your medications until treatment is completed or stopped by your provider. Discuss any questions related to medications with your provider. Medications to Continue with No Changes These medications were not printed or sent to your pharmacy Ethinyl Estradiol-Norgestrel (Low-Ogestrel 30 mcg-0.3 mg oral tablet) TAKE 1 TAB BY MOUTH DAILY,TAKE 21 DAYS OF ACTIVE TABLETS THEN SKIP PLACEBOS AND START THE NEXT PACK. Refills: 0. Next Dose: Fluoxetine (FLUoxetine (Eqv-Prozac) 10 mg oral tablet) 1 tab(s) Oral Daily. Next Dose: Levonorgestrel (Liletta) once. To be inserted at N/V. Next Dose: Allergy Info:?? NKA Medications Given This Visit Future Orders ?No future orders Vital Signs Height 155 cm Weight 71.5 kg BMI 29.76 kg/m2 Blood Pressure 105 mm Hg/54 mm Hg Temperature Pulse Rate 92 bpm Respiratory Rate 02 Sat Mode of Delivery / You can now view a summary of your hospital visit from the comfort of your home through a free online portal called [employer]. [employer] is a website that allows you to securely view your medical information including discharge summary, medications and follow-up visits. ??You can alsosend a secure electronic message to your doctor???s office to request appointments, renew medications or just ask a question. You can enroll at [email or web address] or register during your next office visit. Disclaimer:?? The information provided is of a general nature and is intended to be used in conjunction with the recommendations and advice of your health care practitioner. ??Every effort has been made to ensure that the information provided is accurate and complete at the time it is provided to you however, as your needs change, or, as new ??information becomes available, different or additional instructions may be required. If you have questions, please consult with your primary care provider or pharmacist, as appropriate. ??This information is not intended to serve as substitution for assessment and evaluation by a qualified health care provider. If you do not have a primary care provider, you may find a [facility] provider by calling [facility] Health Link at [phone]. For information about the plan of care including goals and instructions for your diagnosis, please see the patient education orders section of this document. Patient Education Materials?? The content of this educational material or handout may have been modified, supplemented, or adapted from its original content and format to support your individualized medical care. Please follow instructions discussed with your provider during this visit as well as any education documents you were given today. Patient Care team information Care Team Personnel Name: Phuong Powers MD Position: [facility] RFID ENGINEER Member Role: Lifetime Consulting Physician Address: Address: [address] [place] [address], [address] [facility] [place] [address]- Name: Marva Mosley MD Position: [facility] Physician (General Medicine) Member Role: PCP Address: Address: [address] [place] [address] Pediatrics, [place] [address]- Care Team Related Persons Name: JAENNIE YANEZ Address: home [address] [place] [address] Name: RAVINDER FERNANDES Address: home [address] [place] [address] [place] Name: RAVINDER FERNANDES Address: [address] [address] Name: CHARLOTTE FERNANDES Name: DARBY MERCEDES Address: home [address] [place] [address]
--- OUTSIDE RECORDS SUMMARY | 2024-01-29 07:15 | XMS_ITS | Continuity of Care Document ---
Author Organization 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 [address] [facility], 4th [place] [address]- Attending Physician: Sami Ann MD Referring Physician: Kyrie Donis Allergies, Adverse Reactions, Alerts No Known Allergies Immunizations Given and Recorded Vaccine Date Status Refusal Reason SARS-CoV-2 (COVID-19) mRNA-1273 vaccine 08/15/21 R ecorded SARS-CoV-2 (COVID-19) mRNA-1273 vaccine 09/16/20 R ecorded SARS-CoV-2 (COVID-19) mRNA-1273 vaccine 08/19/20 R ecorded Medications Liletta 1 each, Intrauterine, Once, Office supplied and inserted by Adriana Wayne CNM on 08/06/22 lot#[id number] exp 04/2025 [facility]#[id number], # 1 each, 0 Refills, Maintenance, 07/31/22 14:40:00 EST, Partial fill upon patient request if the prescription is fo... Start Date: 07/31/22 Status: Ordered Nexplanon 68 mg subcutaneous implant 1 each = 68 mg, Subcutaneous Infusion, Once, # 1 each, 0 Refills, Soft Stop, 05/15/23 10:21:00 EDT,[facility], Partial fill upon patient request if the prescription is for a schedule II opioid drug., 155, cm, 05/13/23 21:19:00 EDT, H... Start Date: 05/15/23 Status: Ordered Problem List Condition Confirmation Course Effective Dates Status Health St atus Informant Migraines Confirmed Active Obese class I Confirmed Active Vital Signs Most recent to oldest [Reference Range]: 1 Height 155 cm (05/17/23 2:21 PM) Weight 79.18 kg (05/17/23 2:21 PM) Pulse Rate [55-90 bpm] 88 bpm (05/17/23 2:21 PM) Body Mass Index [18.5-24.99 kg/m2] 32.96 kg/m2 *>HHI* (05/17/23 2:21 PM) Blood Pressure [90-138/55-84 mm Hg] 109/ 64mm Hg (05/17/23 2:21 PM) Respiratory Rate [16-30 br/min] 22 br/mi n (05/17/23 2:21 PM) Blood pressure sites Arm, right (05/17/23 2:21 PM) Dry Weight Obtained Via Standing scale (05/17/23 2:21 PM) Social History Social History Type Response Smoking Status Never (less than 100 in lifetime) entered on: 07/20/19 Sex Patient Care team information Care Team Personnel Name: Priya PERAZA, Phuong Jacobs Position: [facility] SEPTIC TANK SERVICER MD Member Role: Lifetime Consulting Physician Address: Address: [address] [place] [address], [address] Name: Not on Staff, PCP Position: [facility] Physician (General Medicine) Member Role: PCP Care Team Related Persons Name: JEANNIE YANEZ Address: home [address] [place] [address] Name: RAVINDER FERNANDES Address: home [address] [place] [address] Name: CHARLOTTE FERNANDES Name: DARBY MERCEDES Address: home [address] [place] [address]
--- OUTSIDE RECORDS SUMMARY | 2024-01-29 07:15 | XMS_ITS | Continuity of Care Document ---
Author Organization [facility] Address [address] [place] [address], 4t [place] [address]- Care Team Providers Care Sports Team Manager Name Role Phone Not on Staff, PCP Primary Care Physician Unavail able Encounter [facility] Date(s): 09/24/22 - 10/24/22 [facility] [address] [place] [address], 4th [place] [address]- Allergies, Adverse Reactions, Alerts No Known Allergies Immunizations Given and Recorded Vaccine Date Status Refusal Reason SARS-CoV-2 (COVID-19) mRNA-1273 vaccine 08/15/21 R ecorded SARS-CoV-2 (COVID-19) mRNA-1273 vaccine 09/16/20 R ecorded SARS-CoV-2 (COVID-19) mRNA-1273 vaccine 08/19/20 R ecorded Medications Liletta 1 each, Intrauterine, Once, Office supplied and inserted by Adriana Wayne [facility] on 08/06/22 lot#[id number] exp 04/2025 [facility]#[id number], # 1 each, 0 Refills, Maintenance, 07/31/22 [...] Priya PERAZA, Phuong Jacobs Position: [facility] PHYSICAL SCIENCE PROFESSOR MD Member Role: Lifetime Consulting Physician Address: Address: [address] [place] [address], [address] [place] [address]- Name: Not on Staff, PCP Position: [facility] Physician (General Medicine) Member Role: PCP Care Team Related Persons Name: JEANNIE YANEZ Address: home [address] [place] [address] Name: RAVINDER FERNANDES Address: [address] [address] Name: CHARLOTTE FERNANDES Name: DARBY MERCEDES Address: home [address] [place] [address]
--- OUTSIDE RECORDS SUMMARY | 2024-01-29 07:15 | XMS_ITS | Continuity of Care Document ---
Author Organization [facility] Mp [employer] Address [address] [facility], 4t [place] [address]- Care Team Providers Care Perioperative Manager Name Role Phone Ok Rene DO Rufino Primary Care Physician [phone] [id number] Date(s): 12/12/23 - 01/19/24 [facility] [employer] [address] [facility], 4th [place] [address]- Attending Physician: Not on Staff, Attending MD Referring Physician: Kyrie Donis Allergies, Adverse [...] each, 0 Refills, Soft Stop, 05/15/23 10:21:00 EDT,[facility], Partial fill upon patient request [...] Personnel Name: Priya PERAZA, Phuong Jacobs Position: [facility] DIET TECHNICIAN REGISTERED MD Member Role: Lifetime Consulting Physician Address: Address: [address] [place] [address], [address] [facility] [place] [address]- Name: Ok Rene DO Position: Reference Physician Member Role: PCP Address: Address: [address] [place] [id number] Care Team Related Persons Name: JEANNIE YANEZ Address: home [address] [place] [address] Name: RAVINDER FERNANDES Address: [address] [place] [address] Name: CHARLOTTE FERNANDES Name: DARBY MERCEDES Address: home [address] [place] [address]
--- OUTSIDE RECORDS SUMMARY | 2024-01-29 07:15 | XMS_ITS | Continuity of Care Document ---
Author Organization [facility] [employer] Address [address] [place] [address], 4[place] [address]- Care Team Providers Care Ramp Agent Name Role Phone Ok Rene DO Rufino Primary Care Physician [id number] Date(s): 12/17/23 - 12/24/23 [facility] [employer] [address] [facility], [address] [place] [address]- Attending Physician: Anthony PERAZA [OB], Debbie Alicea Referring Physician: Kyrie Donis Allergies, Adverse Reactions, Alerts No Known Allergies Immunizations Given and Recorded Vaccine Date Status Refusal Reason SARS-CoV-2 (COVID-19) mRNA-1273 vaccine 08/15/21 R ecorded SARS-CoV-2 (COVID-19) mRNA-1273 vaccine 09/16/20 R ecorded SARS-CoV-2 (COVID-19) mRNA-1273 vaccine 08/19/20 R ecorded Medications duloxetine duloxetine, 0 Refills, Maintenance, 12/17/23 8:43:00 EDT Start Date: 12/17/23 Status: Ordered Nexplanon 68 mg subcutaneous implant 1 each = 68 mg, Subcutaneous Infusion, Once, # 1 each, 0 Refills, Soft Stop, 05/15/23 10:21:00 EDT,[facility], Partial fill upon patient request if the prescription is for a schedule II opioid drug., 155, cm, 05/13/23 21:19:00 EDT, H... Start Date: 05/15/23 Status: Ordered norethindrone 0.35 mg oral tablet 1 tablet = 0.35 mg, By Mouth, Daily, # 28 tablet, 1 Refills, Maintenance, 12/17/23 8:50:00 EDT, Tablet, [id number], Partial fill upon patient request if the prescription is for a schedule II opioid drug., 155, cm, 12/17/23 8:40:00 EDT, Height,... Start Date: 12/17/23 Status: Ordered Problem List Condition Confirmation Course Effective Dates Status Health St atus Informant Ovarian cyst, bilateral Confirmed Active Obese class I Confirmed Active Chronic migraine with aura Confirmed Active Vital Signs Most recent to oldest [Reference Range]: 1 Height 155 cm (12/17/23 8:40 AM) Weight 80.45 kg (12/17/23 8:40 AM) Pulse Rate [55-90 bpm] 83 bpm (12/17/23 8:40 AM) Body Mass Index [18.5-24.99 kg/m2] 33.49 kg/m2 *>HHI* (12/17/23 8:40 AM) Blood Pressure [90-138/55-84 mm Hg] 107/ 69mm Hg (12/17/23 8:40 AM) Respiratory Rate [16-30 br/min] 21 br/mi n (12/17/23 8:40 AM) Blood pressure sites Arm, left (12/17/23 8:40 AM) Dry Weight Obtained Via Standing scale (12/17/23 8:40 AM) Social History Social History Type Response Smoking Status Never (less than 100 in lifetime) entered on: 07/18/18 Sex Note * Rosa Joseph: PERFORM Event Display: Patient Education/Instruction Authored Date: [id number] Amb[facility] MICROSTRATEGY ARCHITECT DEVELOPER [address] [place] [address] Name: HILAYR YANEZMagalyMAGO : 2000?? Visit: 12/17/2023 08:23?? Ambulatory Visit Instructions ?? Your Care Team Primary Care Provider Ok Rene DO? This Visit Provider Kyrie Donis Vitals Signs Pulse Rate: 83 bpm Height: 155 cm Respiratory Rate: 21 br/min Weight: 80.45 kg Systolic Blood Pressure: 107 mm Hg Body Mass Index:??33.49 kg/m2??Critical Diastolic Blood Pressure: 69 mm Hg Body surface area: 1.86 What to do next Scheduled Follow-Up Appointments 2023 1:00 PM EDT ?? With: Deepti PERAZA, Ayush Alicea Where: [facility] MICROSTRATEGY ARCHITECT DEVELOPER [address] [place] [address]- Status: Pending Medications The list below reflects the information in our records and provided by you today along with any changes made during this visit. Please continue your medications until treatment is completed or stopped by your provider. If this is different from the information you have or there are other questions,please contact the prescribing provider. What How Much When Instructions Unchanged Etonogestrel (Nexplanon 68 mg subcutaneous implant) 1 Each Subcutaneous Infusion Once Unchanged Miscellaneous Rx (duloxetine) Unchanged Norethindrone (norethindrone 0.35 mg oral tablet) 1 [...] are strongly encouraged to quit. Please call [facility] ChangeTip Link at [phone] or [phone] ([phone]) or log in to [email or web address] for referrals to smoking cessation programs. ?? The National Suicide Prevention Hotline is available 18/02 if you or someone you know needs to find a reason to keep living. By calling 0-133-788-shta (9640) you'll be connected to a skilled, trained counselor at a crisis center in your area. [facility] ChangeTip Portal You can view and manage your care through the patient portal or by using a health care sadi of your choosing. [employer] is a website that allows you to securely view your medical information including your hospital discharge summary, office visit summaries, medications and follow-up visits. You can also request appointments, renew medications, and request access to your medical information using a health care sadi of your choosing, or just ask a question. You can enroll at [email or web address] or register during your next office visit. [facility], in keeping with [facility] guidance, no longer requires face masks for [...] primary care provider, you may find a [facility] provider by calling [facility] ChangeTip Link at [phone]. Patient Care team information Care Team Personnel Name: Phuong Powers MD Position: [facility] MICROSTRATEGY ARCHITECT DEVELOPER MD Member Role: Lifetime Consulting Physician Address: Address: [address] [place] [address], [address] [facility] [place] [address]- Name: Ok Rene DO Position: Reference Physician Member Role: PCP Address: Address: [address] [place] [address] Dr she[address]on [facility] [place] [address]- [place] Care Team Related Persons Name: YANEZJOHNLO Address: home [address] [place] [address] Name: RAVINDER FERNANDES Address: [address] [place] [address] Name: CHARLOTTE FERNANDES Name: DARBY MERCEDES Address: [place] [address] [place] [address]
--- OUTSIDE RECORDS SUMMARY | 2024-01-29 07:15 | XMS_ITS | Continuity of Care Document ---
Author Organization [facility] Address [address] [place] [address], 4t [place] [address]- Care Team Providers Care Expander Name Role Phone Not on Staff, PCP Primary Care Physician Unavail able Encounter [facility] Date(s): 07/19/23 - 07/26/23 [facility] [address] [facility], 4th [place] [address]- Attending Physician: Rochelle Callaway MD Referring Physician: Kyrie Donis Allergies, Adverse [...] each, 0 Refills, Soft Stop, 05/15/23 10:21:00 EDT,[facility], Partial fill upon patient request if the prescription is for a schedule II opioid drug., 155, cm, 05/13/23 21:19:00 EDT, H... Start Date: 05/15/23 Status: Ordered norethindrone 0.35 mg oral tablet 1 tablet = 0.35 mg, By Mouth, Daily, # 28 tablet, 1 Refills, Maintenance, 07/19/23 8:46:00 EST, Tablet, [id number], Partial fill upon patient request if the prescription is for a schedule II opioid drug., 155, cm, 06/19/23 12:23:00 EST, Height... Start Date: 07/19/23 Status: Ordered Problem List Condition Confirmation Course Effective Dates Status Health St atus Informant Ovarian cyst, bilateral Confirmed Active Obese class I Confirmed Active Chronic migraine with aura Confirmed Active Procedures Procedure Date Related Diagnosis Body Site Status History of tonsillectomy 05/06/23 Completed Vital Signs Most recent to oldest [Reference Range]: 1 Weight 79.3 kg (07/19/23 8:23 AM) Blood Pressure [90-138/55-84 mm Hg] 134/ 82mm Hg (07/19/23 8:23 AM) Blood pressure sites Arm, right (07/19/23 8:23 AM) Weight Obtained Via Standing scale (07/19/23 8:23 AM) Social History Social History Type Response Smoking Status Never (less than 100 in lifetime) entered on: 07/18/18 Sex Patient Care team information Care Team Personnel Name: Priya PERAZA, Phuong Jacobs Position: [facility] MANAGER MARKETING COMMUNICATION Member Role: Lifetime Consulting Physician Address: Address: [address] [place] [address], [address] [facility] [address] Name: Not on Staff, PCP Position: [facility] Physician (General Medicine) Member Role: PCP Care Team Related Persons Name: JEANNIE YANEZ Address: home [address] [place] [address] Name: RAVINDER FERNANDES Address: [address] [place] [address] Name: CHARLOTTE FERNANDES Name: DARBY MERCEDES Address: home [address] [place] [address]
--- OUTSIDE RECORDS SUMMARY | 2024-01-29 07:15 | XMS_ITS | Continuity of Care Document ---
Author Organization [facility]en n[facility] Address [address] [place] [address], 4t [place] [address]- Care Team Providers Care Early Childhood Teacher Name Role Phone Not on Staff, PCP Primary Care Physician Unavail able Encounter [facility] Date(s): 06/19/23 - 06/26/23 [facility] Mp [facility] [address] [facility], 4th [place] [address]- Attending Physician: Sarah Ruggiero MD Referring Physician: Not on Staff, Referring [...] 07/19/23 13:42:00 EST, 06/19/23 13:42:00 EST, Tablet, [id number], Partial fill upon patient request if the prescription is for a schedule II o... Start Date: 06/19/23 Stop Date: 07/19/23 Status: Ordered Nexplanon 68 mg subcutaneous implant 1 each = 68 mg, Subcutaneous Infusion, Once, # 1 each, 0 Refills, Soft Stop, 05/15/23 10:21:00 EDT,[facility], Partial fill upon patient request if the prescription is for a schedule II opioid drug., 155, cm, 05/13/23 21:19:00 EDT, H... Start Date: 05/15/23 Status: Ordered Problem List Condition Confirmation Course Effective Dates Status Health St atus Informant Migraines Confirmed Active Obese class I Confirmed Active Vital Signs Most recent to oldest [Reference Range]: 1 Height 155 cm (06/19/23 12:23 PM) Weight 78.90 kg (06/19/23 12:23 PM) Pulse Rate [55-90 bpm] 101 bpm *H* (06/19/23 12:23 PM) Body Mass Index [18.5-24.99 kg/m2] 32.84 kg/m2 *>HHI* (06/19/23 12:23 PM) Blood Pressure [90-138/55-84 mm Hg] 128/ 67mm Hg (06/19/23 12:23 PM) Respiratory Rate [16-30 br/min] 25 br/mi n (06/19/23 12:23 PM) Blood pressure sites Arm, right (06/19/23 12:23 PM) Dry Weight Obtained Via Standing scale (06/19/23 12:23 PM) Social History Social History Type Response Smoking Status Never (less than 100 in lifetime) entered on: 07/20/19 Sex Patient Care team information Care Team Personnel Name: Priya PERAZA, Phuong Jacobs Position: [facility] GENERAL ASSEMBLER INSTALLER MD Member Role: Lifetime Consulting Physician Address: Address: [address] [place] [address], [address] Name: Not on Staff, PCP Position: [facility] Physician (General Medicine) Member Role: PCP Care Team Related Persons Name: JEANNIE YANEZ Address: [address] [place] [address] Name: RAVINDER FERNANDES Address: [address] [place] [address] Name: CHARLOTTE FERNANDES Name: DARBY MERCEDES Address: home [address] [place] [address]
--- OUTSIDE RECORDS SUMMARY | 2024-01-29 07:15 | XMS_ITS | Continuity of Care Document ---
Author Organization [facility] Address [address] [place] [address], [address]t [place] [address]- Care Team Providers Care Manager Employee Benefits Name Role Phone Not on Staff, PCP Primary Care Physician Unavail able Encounter [facility] Date(s): 04/26/23 - 05/03/23 [facility] [address] [facility], 4th [place] [address]- Attending Physician: Not on Staff, Attending MD [...] inserted by Adriana Wayne CNM on 08/06/22 lot#[id number] exp 04/2025 [facility]#[id number], # 1 each, 0 Refills, Maintenance, 07/31/22 14:40:00 EST, Partial fill upon patient request if the prescription is fo... Start Date: 07/31/22 Status: Ordered Problem List Condition Confirmation Course Effective Dates Status Health St atus Informant Migraines Confirmed Active Obese class I Confirmed Active Vital Signs Most recent to oldest [Reference Range]: 1 Height 155 cm (04/26/23 11:16 AM) Social History Social History Type Response Smoking Status Never (less than 100 in lifetime) entered on: 07/20/19 Sex Patient Care team information Care Team Personnel Name: Priya PERAZA, Phuong Jacobs Position: [facility] DIAGNOSTIC IMAGING MANAGER MD Member Role: Lifetime Consulting Physician Address: Address: [address] [place] [address], [facility] [address] [facility] [place], [place] [address] Name: Not on Staff, PCP Position: [facility] Physician (General Medicine) Member Role: PCP Care Team Related Persons Name: JEANNIE YANEZ Address: [address] [place] [address] Name: RAVINDER FERNANDES Address: [address] [place] [address] Name: CHARLOTTE FERNANDES Name: DARBY MERCEDES Address: home [address] [place] [address]
--- OUTSIDE RECORDS SUMMARY | 2024-01-29 07:15 | XMS_ITS | Continuity of Care Document ---
Author Organization [facility] [employer] Address [address] [place] [address], 4t [place] [address]- Care Team Providers Care Flexo Press Operator Name Role Phone Not on Staff, PCP Primary Care Physician Unavail able Encounter [facility] Date(s): 02/18/23 - 03/20/[address], 4th [address] [place], [place] [id number]- [place] Allergies, Adverse Reactions, Alerts No Known Allergies Immunizations Given and Recorded Vaccine Date Status Refusal Reason SARS-CoV-2 (COVID-19) mRNA-1273 vaccine 08/15/21 R ecorded SARS-CoV-2 (COVID-19) mRNA-1273 vaccine 09/16/20 R ecorded SARS-CoV-2 (COVID-19) mRNA-1273 vaccine 08/19/20 R ecorded Medications Liletta 1 each, Intrauterine, Once, Office supplied and inserted by Adriana Wayne Briseyda on 08/06/22 lot#[id number] exp 04/2025 [facility]#[id number], # 1 each, 0 Refills, Maintenance, 07/31/22 [...] Personnel Name: Priya PERAZA, Phuong Jacobs Position: S RESEARCH BIOSTATISTICIAN MD Member Role: Lifetime Consulting Physician Address: Address: [address] [place] [address], [address] [facility] [place] [address]- Name: Not on Staff, PCP Position: S Physician (General Medicine) Member Role: PCP Care Team Related Persons Name: JEANNIE YANEZ Address: [address] [address] Name: RAVINDER FERNANDES Address: [address] [address] Name: CHARLOTTE FERNANDES Name: DARBY MERCEDES Address: [address] [address]
--- OUTSIDE RECORDS SUMMARY | 2024-01-29 07:15 | XMS_ITS | Continuity of Care Document ---
Author Organization [facility] [employer] [facility] Address [address] [place] [address], 4t [place] [address]- Care Team Providers Care Messenger Copy Name Role Phone Not on Staff, PCP Primary Care Physician Unavail able Encounter [facility] Date(s): 05/18/23 - 09/15/23 [facility] [address] [facility], 4th [place] [address]- Attending Physician: Not on Staff, Attending MD [...] each, 0 Refills, Soft Stop, 05/15/23 10:21:00 EDT,[facility], Partial fill upon patient request if the prescription is for a schedule II opioid drug., 155, cm, 05/13/23 21:19:00 EDT, H... Start Date: 05/15/23 Status: Ordered norethindrone 0.35 mg oral tablet 1 tablet = 0.35 mg, By Mouth, Daily, # 28 tablet, 1 Refills, Maintenance, 07/19/23 8:46:00 EST, Tablet, [facility] #[id number], Partial fill upon patient request if [...] Personnel Name: Priya PERAZA, Phuong Jacobs Position: [facility] MUFF WINDER MD Member Role: Lifetime Consulting Physician Address: Address: [address] [place] [address], [address] [facility] [address] Name: Not on Staff, PCP Position: [facility] Physician (General Medicine) Member Role: PCP Care Team Related Persons Name: JEANNIE YANEZ Address: [address] [place] [address] Name: RAVINDER FERNANDES Address: [address] [place] [address] Name: CHARLOTTE FERNANDES Name: DARBY MERCEDES Address: [address] [place] [address]
--- OUTSIDE RECORDS SUMMARY | 2024-01-29 07:15 | XMS_ITS | Continuity of Care Document ---
Author Organization [facility] Address [address] [facility], 4[address] [place] [address]- Care Team Providers Care Owner [employer] Name Role Phone ReneKeara ziegler DOjaxson Joy Primary Care Physician [phone] [id number] Date(s[facility] 12/12/23 - 01[facility]11/24 [facility] [address] [facility], 4th [place] [address]- Allergies, Adverse Reactions, Alerts No Known Allergies [...] 0 Refills, Soft Stop, 05/15/23 10:21:00 EDT,[facility], Partial fill upon [...] Personnel Name: Priya PERAZA, Phuong Jacobs Position: [facility] PATIENT ACCESS COORDINATOR MD Member Role: Lifetime Consulting Physician Address: Address: [address] [place] [address], [address] [place] [address]- Name: Ok Rene DO Position: Reference Physician Member Role: PCP Address: Address: [address] [place] [address] [facility] [place], [place] [address] Care Team Related Persons Name: JEANNIE YANEZ Address: [address] [place] [address] Name: RAVINDER FERNANDES Address: [address] [place] [address] Name: CHARLOTTE FERNANDES Name: DARBY MERCEDES Address: [address] [place] [address]
--- OUTSIDE RECORDS SUMMARY | 2024-01-29 07:15 | XMS_ITS | Continuity of Care Document ---
Author Organization [facility] ter Address [address] [place] [address]- Care Team Providers Care Experimental Preflight Mechanic Name Role Phone Ok Rene DO Rufino Primary Care Physician Encounter [facility] Date(s): 05/13/23 - 05/13/[address] [address]- Discharge Disposition: A-D/C Home Attending Physician: Imani Hunter MD Admitting Physician: Imani Hunter MD Referring Physician: Not on Staff, Referring MD Allergies, Adverse Reactions, Alerts No Known Allergies Immunizations Given and Recorded Vaccine Date Status Refusal Reason SARS-CoV-2 (COVID-19) mRNA-1273 vaccine 08/15/21 R ecorded SARS-CoV-2 (COVID-19) mRNA-1273 vaccine 09/16/20 R ecorded SARS-CoV-2 (COVID-19) mRNA-1273 vaccine 08/19/20 R ecorded Medications Acetaminophen IVPB 1,000 mg, Injection, IVPB, Once, (Infuse over 15 minutes), STAT, 05/13/23 19:30:00 EDT, Stop date 05/13/23 19:30:00 EDT Notes: Doses <1000mg should be routed to [facility] by changing the dispense category Start Date: 05/13/23 Stop Date: 05/13/23 Status: Completed Liletta 1 each, Intrauterine, Once, Office supplied and inserted by Adriana Wayne CNM on 08/06/22 lot#[id number] exp 04/2025 [facility]#[id number], # 1 each, 0 Refills, Maintenance, 07/31/22 14:40:00 EST, Partial fill upon patient request if the prescription is fo... Start Date: 07/31/22 Status: Ordered Problem List Condition Confirmation Course Effective Dates Status Health St atus Informant Migraines Confirmed Active Obese class I Confirmed Active Vital Signs Most recent to oldest [Reference Range]: 1 2 3 Height 155 cm (05/13/23 9:19 PM) 155 cm (05/13/23 7:52 PM) 155 cm (05/13/23 2:48 PM) Oxygen Saturation [94-100 %] 100 % (05/13/23 7:52 PM) 99 % (05/13/23 2:48 PM) 98 % (05/13/23 2:43 PM) Pulse Rate [55-90 bpm] 95 bpm *H* (05/13/23 7:52 PM) 96 bpm *H* (05/13/23 2:48 PM) 111 bpm *H* (05/13/23 2:43 PM) Blood Pressure [90-138/55-84 mm Hg] 113/78mm Hg (05/13/23 7:52 PM) 135/83mm Hg (05/13/23 2:48 PM) Respiratory Rate [16-30 br/min] 20 br/min (05/13/23 10:16 PM) 16 br/min (05/13/23 7:52 PM) 18 br/min (05/13/23 2:48 PM) Temperature [96.8-100.4 DegF] 98.8 DegF (05/13/23 7:52 PM) 98.8 DegF (05/13/23 2:48 PM) Mode of Delivery (Oxygen) Room air (05/13/23 7:52 PM) Room air (05/13/23 2:48 PM) Room air (05/13/23 2:43 PM) Blood pressure sites Arm, right (05/13/23 7:52 PM) Arm, right (05/13/23 2:48 PM) Temperature Route Oral (05/13/23 7:52 PM) Oral (05/13/23 2:48 PM) Dry Weight 76.5 kg (05/13/23 9:19 PM) 76.5 kg (05/13/23 7:52 PM) 76.5 kg (05/13/23 2:48 PM) Social History Social History Type Response Smoking Status Never (less than 100 in lifetime) entered on: 07/20/19 Sex Note * Vanessa Iqbal NP: PERFORM, SIGN, VERIFY Event Display: Patient Education Handout Authored Date: Patient Care team information Care Team Personnel Name: Priya PERAZA, Phuong Jacobs Position: [facility] FOOD SPECIALIST MD Member Role: Lifetime Consulting Physician Address: Address: [address] [place] [address], [address] [employer] [place] [address]- Name: Ok Rene DO Position: Reference Physician Member Role: PCP Address: Address: [address] [place] [address] [place] [address]- [place] Name: Dale PERAZA, Imani Zuluaga Position: [facility] ED Medicine MD Member Role: Admitting Physician Address: Address: [address] [place] [address]- [place] Name: Vanessa Iqbal NP Position: [facility] Associate Professional Member Role: Nurse Practitioner Address: Address: [address] [place] [address] [place] [address]- [place] Name: Trav Bro RN Position: [facility] ED RN W/OE and Tasks Member Role: Patient Care Provider Care Team Related Persons Name: JEANNIE YANEZ Address: home [address] [place], [place] Name: RAVINDER FERNANDES Address: [address] [place], [place] Name: CHARLOTTE FERNANDES Name: DARBY MERCEDES Address: home [address] [place], [place]
--- OUTSIDE RECORDS SUMMARY | 2024-01-29 07:15 | XMS_ITS | Continuity of Care Document ---
Author Organization [facility] ter Address [address] [place] [address]- Care Team Providers Care Turf Sales Person Name Role Phone Marva Mosley MD Primary Care Physician Encounter [facility] Date(s): 07/20/19 - 07/20/[address] [address]- [facility] Attending Physician: Phuong Powers MD Allergies, Adverse Reactions, Alerts Substance Reaction [...] Date: 07/20/19 Stop Date: 07/30/19 Status: Ordered Pyridium 200 mg oral tablet 1 tablet = 200 mg, By Mouth, 3 times a day, for 3 days, # 9 tablet, 0 Refills, Acute 07/23/19 10:34:00 EST, 07/20/19 10:34:00 EST, Tablet, [id number], 155, cm, 07/20/19 10:23:00 EST, Height Start Date: 07/20/19 Stop Date: 07/23/19 Status: Ordered Problem List Condition Effective Dates Status Health Status Inform ant Migraines(Confirmed) Active Social History Social History Type Response Smoking Status Never (less than 100 in lifetime) entered on: 07/20/19 Sex
--- OUTSIDE RECORDS SUMMARY | 2024-01-29 07:16 | XMS_ITS | Patient Health Record ---
Author Organization [facility] Address [address] [place] [address] Support Name Relationship Address Phone Sona Newsome Guarantor Unknown Reason For Referral No Information Problems Problem Type SNOMED Code ICD Code Onset Dates Problem Status W/U Status Risk Notes Problem Pain in right hand (693160898568 109) Pain in right hand (M79.641) Active confirmed Plan Of Treatment Pending Test Test Name Order Date X ray : Hand, right 07/11/2021 Insurance Providers Payer Name Payer Address Payer Phone Subscriber Number Group Number Insured Name Patient Relationship to Insured Coverage Start Date Coverage End Date [employer] [address] Juan little[place], [place] [address] [phone] [id number] Sona Newsome Self - patient is the insured
[2024-01-29 07:23] LABS: MANUAL DIFF FLAG NO
[2024-01-29 07:30] LABS: Basophils Percent Auto 0.5 % (0-2); Eosinophils Absolute Auto 0.1 X10*3/uL (0.0-0.4); Eosinophils Percent Auto 1.7 % (0-4); Hematocrit 36.1 % (37.0-47.0); Hemoglobin 11.9 g/dl (12.0-16.0); Imm Gran Abs Auto 0.02 X10*3/uL (0.00-0.03); Imm Gran Pct Auto 0.3 % (0.0-0.4); Lymphocytes Absolute Auto 2.4 X10*3/uL (1.2-4.9); Lymphocytes Percent Auto 35.4 % (20-40); Mean Corpuscular Hemoglobin 26.6 pg (27.0-33.0); Mean Corpuscular Volume 80.6 fL (80.0-98.0); Mean Platelet Volume 9.7 fL (9.4-12.3); Monocytes Absolute Auto 0.3 X10*3/uL (0.1-1.2); Monocytes Percent Auto 4.1 % (2-11); Neutrophils Absolute Auto 3.9 x10*3/uL (2.0-8.3); Platelet Count 356 X10*3/uL (160-400); Red Blood Count 4.48 X10*6/uL (4.20-5.50); Red Cell Distribution Width 14.2 % (11.0-16.0); White Blood Count 6.6 X10*3/uL (4.8-10.8)
[2024-01-29 07:46] LABS: UPreg QC Valid YES; Urine Pregnancy NEGATIVE (NEGATIVE)
--- NOTE | 2024-01-29 07:48 | ED.ABDPAIN ---
HPI - Abdominal Pain General Chief Complaint: Abdominal Pain Stated Complaint: abd pain Time Seen by Provider: 01/29/24 07:25 Source: patient, RN notes reviewed and old records reviewed Mode of arrival: ambulatory History of Present Illness ED Provider: Magalis Cardenas PA-C HPI narrative: 23-year-old female with a past medical history of ovarian cyst presenting to the ED complaining of lower abdominal pain and nausea since last night. Reports vaginal bleeding a few days ago, resolved at present. States symptoms were similar to prior ruptured ovarian cyst in the past. Currently takes Nexplanon and another control due to menorrhagia. Denies fever, chills, vomiting, diarrhea, vaginal discharge, dysuria/hematuria, vaginal bleeding at present. LMP 1 month ago MD elicited complaint: abdominal pain Related Data Previous Rx's ?Medication ?Instructions ?Recorded acetaminophen 500 mg tablet 500 mg PO Q6H PRN pain or fever 11/10/21 (Tylenol Extra Strength) #14 tabs benzonatate 200 mg capsule 200 mg PO TID PRN cough #20 caps 11/10/21 fluticasone propionate 50 2 spray intranasal DAILY #16 grams 11/10/21 mcg/actuation nasal spray,suspension (Flonase Allergy Relief) ibuprofen 400 mg tablet 400 mg PO Q6H 7 days #14 tabs 11/10/21 docusate sodium 100 mg capsule 100 mg PO BID #20 caps 02/18/23 (Colace) ketorolac 10 mg tablet 10 mg PO TID PRN pain 5 days #15 02/18/23 tabs polyethylene glycol 3350 17 17 g PO BID PRN constipation #238 02/18/23 gram/dose oral powder (Miralax) grams sennosides 8.6 mg tablet (senna) 8.6 mg PO BEDTIME #14 tabs 02/18/23 nitrofurantoin 100 mg PO BID 5 days #10 caps 02/24/23 monohydrate/macrocrystals 100 mg capsule (Macrobid) Allergies Allergy/AdvReac Type Severity Reaction Status Date / Time amoxicillin Allergy Hives Verified 01/29/24 06:59 Review of Systems Review of Systems Constitutional: No Fever, No Chills ENT/Mouth: No Ear Pain, No Nasal Congestion, No sore throat, No Rhinorrhea, No Swallowing Difficulty Cardiovascular: No Chest Pain, No SOB Respiratory: No Cough, No Sputum, No Wheezing Gastrointestinal: No Nausea, No Vomiting, No Diarrhea, No Constipation, + Abdominal pain Genitourinary: No Dysuria, No Urinary Frequency, No Hematuria, No Flank Pain, + vaginal bleeding (resolved), No vaginal d/c Musculoskeletal: No joint pain, No Myalgias, No Joint Swelling Skin: No Skin Lesions, No rash Neuro: No Weakness Yes all other systems are reviewed and are negative Constitutional: Reports as per [facility] Past Medical History Attestation statement: The following information was validated with the patient. Source: old records reviewed Medical History No known health problems Social History Social History Alcohol intake: current Alcohol intake frequency: holidays/special occasions only Patient Tobacco Use Status: Never used Tobacco Substance Use Type: Marijuana Advance Directives: No Advance Directives Information Provided: No Physical Exam ED Vital Signs: Vital Signs - 24 hr 01/29/24 06:56 01/29/24 08:00 01/29/24 10:00 Temperature 97.4 F 98.5 F Pulse Rate 92 79 73 Respiratory Rate 14 16 16 Blood Pressure 129/72 118/78 111/65 Pulse Oximetry 98 99 100 Oxygen Delivery Method Room Air Room Air Room Air 01/29/24 12:07 Temperature 98.5 F Pulse Rate 73 Respiratory Rate 16 Blood Pressure 111/65 Pulse Oximetry 100 Oxygen Delivery Method BMI result Body Mass Index 33.2 Const General: cooperative, healthy appearing and no acute distress Orientation/consciousness: patient oriented x3 Limitations: no limitations [facility] Head: Yes normal to inspection and Yes atraumatic Ears: hearing grossly normal bilaterally General nose exam: Normal external nose present Face and sinus: Yes normal facial exam Eyes General: appearance normal, both eyes and all related structures EOM: EOMs intact bilaterally Neck Neck: Yes normal visual inspection and Yes no meningeal signs Resp Effort & Inspection: normal respiratory effort and no respiratory distress Auscultation: clear to auscultation bilaterally Cardio Rate: regular rate Heart sounds: S1 normal heart sound present and S2 normal heart sound present GI Inspection: Yes normal to inspection Palpation (GI): Soft to palpation, Tenderness to palpation present (GI) suprapubicly (> left); with no rebound tenderness, no guarding and not rigid General: Yes no CVA tenderness Back/Spine/Pelvis Back: no CVA tenderness Skin Rashes: no rashes Wounds: no wounds Neuro General: patient oriented x3, tone normal and no meningeal signs Cranial nerves: Yes CN's II-XII intact bilaterally Gait exam (Neuro): Normal gait present Extrem General: Yes normal to inspection Course Course Course Narrative: -no leukocytosis. Lipase elevated to 211 -UA infected US pelvic and transvaginal IMPRESSION: Nonobtainable waveforms and color-flow of the left ovary due to technical limitations. Normal waveforms and color flow of the right ovary. > spoke with instrumentation and controls technician, could not get a clear view left ovary due to placement behind uterus and bowel gas. Ovary of appropriate sizing, she had low suspicion for torsion -0919--on re-evaluation patient reports continued lower abdominal pain, mild improvement, on Re-palpation there is no epigastric and continued left lower quadrant tenderness will obtain CT for further eval 1149--CT abdomen pelvis w IV con IMPRESSION: No acute abnormality in the abdomen or pelvis. Results discussed with patient including worrisome signs and symptoms and strict return precautions, and when to return to the emergency department. They verbalized understanding and feel safe for discharge at this time. Medical Decision Making Medical Decision Making MDM Narrative: 23-year-old female with a past medical history of ovarian cyst presenting to the ED complaining of lower abdominal pain and nausea since last night. On exam vital signs stable, NAD, nontoxic appearing, abdomen soft with suprapubic > left-sided tenderness, no rebound or guarding, no CVAT. Concern for ovarian cyst vs torsion. Rule out /ectopic. Diverticulitis on differential however lower. Lower suspicion for appendicitis, cholecystitis/lithiasis or pancreatitis Plan: Labs, UA, , ultrasound, IVF, pain management Please refer to course for remaining clinical decision making, interpretation of labs/imaging results, and discussions with consultants and/or family members. Differential Diagnosis Differential Diagnoses: The differential diagnosis associated with the presentation includes As above Admission/Observation Consideration of admission/observation: Escalation of care including admission/observation considered Lab Data [facility] Lab Attestation statement: I reviewed the patient's lab results. 01/29/24 07:19 01/29/24 07:19 Labs: Lab Results 01/29/24 01/29/24 Range/Units 07:19 07:31 WBC 6.6 (4.8-10.8) X10*3/uL RBC 4.48 (4.20-5.50) X10*6/uL Hgb 11.9 L (12.0-16.0) g/dl Hct 36.1 L (37.0-47.0) % MCV 80.6 (80.0-98.0) fL MCH 26.6 L (27.0-33.0) pg MCHC 33.0 (31.0-35.0) g/dl RDW 14.2 (11.0-16.0) % Plt Count 356 (160-400) X10*3/uL MPV 9.7 (9.4-12.3) fL Immature Gran % (Auto) 0.3 (0.0-0.4) % Neut % (Auto) 58.0 (45-73) % Lymph % (Auto) 35.4 (20-40) % Boundary % (Auto) 4.1 (2-11) % Eos % (Auto) 1.7 (0-4) % Baso % (Auto) 0.5 (0-2) % Lymph # (Auto) 2.4 (1.2-4.9) X10*3/uL Boundary # (Auto) 0.3 (0.1-1.2) X10*3/uL Eos # (Auto) 0.1 (0.0-0.4) X10*3/uL Baso # (Auto) 0.0 (0.0-0.2) X10*3/uL Abs Immat Gran (auto) 0.02 (0.00-0.03) X10*3/uL Absolute Neuts (auto) 3.9 (2.0-8.3) x10*3/uL Absolute Nucleated RBC 0.000 (0.0-0.012) X10*3/uL Nucleated RBC % (auto) 0.0 (0.0-0.2) /100WBC Sodium 137 (135-145) mmol/L Potassium 4.0 (3.3-5.1) mmol/L Chloride 109 H (96-108) mmol/L Carbon Dioxide 20 L (22-29) mmol/L Anion Gap 12 (12-20) BUN 12 (9-16) mg/dL Creatinine 0.69 (0.5-1.4) mg/dL Estim Creat Clear Calc 121.1 Estimated GFR > 60 Random Glucose 98 (60-115) mg/dL Calcium 8.7 (8.4-10.2) mg/dL Total Bilirubin 0.2 (0.0-1.0) mg/dL Direct Bilirubin < 0.2 (0.0-0.5) mg/dL AST 14 (5-31) U/L ALT 13 (0-31) U/L Alkaline Phosphatase 67 (39-117) U/L Total Protein 7.0 (6.5-8.0) g/dL Albumin 3.9 (3.5-5.0) g/dL Lipase 211 H (8-78) U/L Urine Color Yellow Urine Appearance Clear Urine pH 6.0 (5.0-9.0) Ur Specific [place] 1.020 (1.005-1.025) Urine Protein Negative (Neg-Trace) mg/dL Urine Glucose (UA) Negative (Negative) mg/dL Urine Ketones Negative (Negative) mg/dL Urine Blood Negative (Negative) Urine Nitrite Positive H (Negative) Ur Leukocyte Esterase Negative (Negative) Urine RBC 0-2 (0-2) /HPF Urine WBC 0-5 (0-5) /HPF Ur Squamous Epith Cells 3-5 (0-2) /HPF Urine Bacteria 4+ (None Seen) Hyaline Casts 0-2 (0-2) /LPF Urine Test NEGATIVE (NEGATIVE) Independent Interpretation I performed an independent interpretation of an: Ultrasound Radiology Impression Discussion of test interpretation with radiology: I have reviewed the radiologist's reading. External Record Review External record reviewed: Inpatient record, Office record, Outpatient record, Prior outpatient labs, Prior outpatient radiology, Primary care record and Outside ED record Tests considered The following testing was considered but not selected: As above Prescription Management I considered prescription management with: Pain Medication Medications Administered Discontinued Medications Generic Name Dose Route Start Last Admin Trade Name Freq PRN Reason Stop Dose Admin Sodium Chloride 1,000 mls @ 999 mls/hr 01/29/24 08:15 01/29/24 11:16 Ns IV 01/29/24 09:15 Infused .Q1H1M DAVID Infusion Iohexol 100 ml 01/29/24 10:34 01/29/24 10:34 Iohexol 350 Mg/Ml 100 Ml Infus..Btl IV 01/29/24 10:35 85 ml ONCE ONE Administration Ketorolac Tromethamine 15 mg 01/29/24 08:11 01/29/24 09:05 Ketorolac Tromethamine 15 Mg/Ml Vial IVPUSH 01/29/24 08:12 15 mg ONCE ONE Administration Ondansetron HCl 4 mg 01/29/24 08:11 01/29/24 09:05 Ondansetron Hcl 4 Mg/2 Ml Vial IVPUSH 01/29/24 08:12 4 mg ONCE ONE Administration Discharge Plan Discharge Clinical Impression: Lower abdominal pain Patient Disposition: Home, Self-Care Instructions: Abdominal Pain (ED) Additional Instructions: Your blood work, CT scan and ultrasound were reassuring Please have close follow-up with her OBGYN Practice a bland diet If pain persists or worsens/becomes unbearable, you are unable to eat or drink or have fever return to the ED Prescriptions: No Action benzonatate 200 mg capsule 200 mg PO TID PRN (Reason: cough) Qty: 20 0RF acetaminophen [Tylenol Extra Strength] 500 mg tablet 500 mg PO Q6H PRN (Reason: pain or fever) Qty: 14 0RF ibuprofen 400 mg tablet 400 mg PO Q6H 7 Days Qty: 14 0RF fluticasone propionate [Flonase Allergy Relief] 50 mcg/actuation spray,suspension 2 spray intranasal DAILY Qty: 16 0RF Rx Instructions: administer into each nostril ketorolac 10 mg tablet 10 mg PO TID PRN (Reason: pain) 5 Days Qty: 15 0RF sennosides [senna] 8.6 mg tablet 8.6 mg PO BEDTIME Qty: 14 0RF docusate sodium [Colace] 100 mg capsule 100 mg PO BID Qty: 20 0RF polyethylene glycol 3350 [Miralax] 17 gram/dose powder 17 g PO BID PRN (Reason: constipation) Qty: 238 0RF nitrofurantoin monohyd/m-cryst [Macrobid] 100 mg capsule 100 mg PO BID 5 Days Qty: 10 0RF Rx Instructions: must administer with a meal/food Referrals: [facility] [Provider Group] Marva Mosley MD [Primary Care Provider] - 3 days Stand Alone Forms: Work/School Release Interventions: ED Discharge Assessment Last Done: 01/29/24 12:07 Discharge Date/Time: 01/29/24 12:07 Print Language: Tamazight
[2024-01-29 07:52] LABS: Alanine Aminotransferase 13 U/L (0-31); Albumin Level 3.9 g/dL (3.5-5.0); Alkaline Phosphatase 67 U/L (39-117); Anion Gap 12 (12-20); Aspartate Amino Transferase 14 U/L (5-31); Bilirubin Direct < 0.2 mg/dL (0.0-0.5); Bilirubin Total 0.2 mg/dL (0.0-1.0); Blood Urea Nitrogen 12 mg/dL (9-16); Calcium 8.7 mg/dL (8.4-10.2); Carbon Dioxide 20 mmol/L (22-29); Chloride 109 mmol/L (96-108); Creatinine Clr Calc Pharmacy 121.1; Estimated Glomerular Filt Rate > 60; Glucose Random 98 mg/dL (60-115); Lipase 211 U/L (8-78); Sodium 137 mmol/L (135-145)
[2024-01-29 08:00] VITALS: BP 118/78; PULSE 79; RESP 16; TEMP 36.9; O2SAT 99
[2024-01-29 08:02] LABS: Appearance Urine Clear; Color Urine Yellow; Glucose Urine UA Negative (Negative); Leukocyte Esterase Urine Negative (Negative); Nitrite Urine Positive (Negative); UMIC TRIGGER UACC YES; Urine Blood Negative (Negative); Urine Ketones Negative (Negative); Urine Protein Negative (Neg-Trace)
[2024-01-29 08:11] LABS: Bacteria Urine 4+ (None Seen); Hyaline Casts Urine 0-2 /LPF (0-2); RBC Urine 0-2 /HPF (0-2); UACC Culture Trigger YES; WBC Urine 0-5 /HPF (0-5)
[2024-01-29] MEDS: ondansetron HCL 4 MG/2 ML VIAL IVPUSH (09:05)
[2024-01-29] MEDS: Ketorolac Tromethamine 15 MG/ML VIAL IVPUSH (09:05)
[2024-01-29] MEDS: 0.9 % Sodium Chloride 1,000 ML 999 ML IV (09:06)
[2024-01-29 10:00] VITALS: BP 111/65; PULSE 73; RESP 16; O2SAT 100
[2024-01-29] MEDS: iohexoL 350 MG/ML 100 ML INFUS..BTL IV (10:34)
[2024-01-29 12:07] VITALS: BP 111/65; PULSE 73; RESP 16; TEMP 36.9; O2SAT 100
== END 2024-01-29 12:07 | disposition home or self-care (01) ==
PROVIDERS: Emergency Provider Emergency Medicine; PCP Pediatrics
DX: R10.32 Left lower quadrant pain (principal); R11.0 Nausea; N93.9 Abnormal uterine and vaginal bleeding, unspecified; R10.13 Epigastric pain
CPT/HCPCS: 36415; 74177; 76830; 76856; 80048; 80076; 81001; 81003; 81025; 83690; 85025; 87086; 87088; 87186; 93975; 96361; 96374; 96375; 99284; J1885; J2405; Q9967

== ENCOUNTER 2024-06-23 20:46 | Emergency (ER) | payer OTHER, SELFPAY ==
--- NOTE | ~2024-06-23 | CT_ITS ---
EXAMINATION: CT ABDOMEN AND PELVIS WITH CONTRAST CLINICAL INFORMATION: Abdominal distention. COMPARISON: None available. TECHNIQUE: Multidetector volumetric images were obtained from the superior aspect of the liver through the pubic symphysis following administration 85 mL of Omnipaque 350 intravenous contrast. Sagittal and coronal reformatted images were obtained on the technologist's workstation. Oral contrast: No This CT examination was performed using dose optimization techniques as appropriate, variously including the following: *Automated exposure control *Adjustment of mA and/or kV according to patient size (this includes techniques or standardized protocols for targeted exams where dose is matched to indication/reason for exam; i.e. extremities or head) *Use of iterative reconstruction technique DLP: 85 mGy-cm FINDINGS: LUNG BASES: The visualized lung bases are unremarkable. LIVER, GALLBLADDER, AND BILIARY TREE: 1 cm hypodensity within the central liver likely a small cyst. No focal hepatic lesion or biliary ductal dilatation is present. The gallbladder is unremarkable with no evidence of radiopaque gallstones, gallbladder wall thickening, or obvious pericholecystic inflammatory changes. PANCREAS: Unremarkable. SPLEEN: Unremarkable. ADRENAL GLANDS: Unremarkable. KIDNEYS AND URETERS: The kidneys are normal in size, shape, and attenuation. No hydronephrosis, hydroureter, or calculi seen. No perinephric stranding. BLADDER: There is a small amount of air within the urinary bladder. GASTROINTESTINAL TRACT: A prominent fluid-filled small bowel loops as well as fluid within the right colon. The appendix is not confidently identified as a separate structure. ABDOMINAL WALL: No significant hernia is appreciated. LYMPH NODES: Normal. VASCULAR: Unremarkable. PELVIC VISCERA: Small amount of free fluid within the pelvis. OSSEOUS STRUCTURES: Unremarkable. CT/CT abdomen pelvis w IV con IMPRESSION: 1. Prominent fluid-filled small bowel loops as well as fluid within the right colon. The appendix is not confidently identified as a separate structure. These findings are nonspecific and may represent enteritis. 2. Small amount of free fluid within the pelvis. 3. Small amount of air within the urinary bladder. Correlate with recent catheterization. Fleischner guidelines were followed. Electronically signed by: Celestino Leahy MD 06/24/2024 06:08 AM [facility]
--- NOTE | ~2024-06-23 | XR_ITS ---
EXAMINATION: XR ABDOMEN KUB CLINICAL INDICATION: constipation COMPARISON: None available. TECHNIQUE: AP view of the abdomen. FINDINGS: The bowel gas pattern is normal with no evidence of ileus or obstruction. There is retained stool throughout particularly within the rectosigmoid. No unusual soft tissue calcifications are noted. The bones are unremarkable. XR/XR KUB IMPRESSION: 1. Nonobstructive bowel gas pattern. 2. Retained stool throughout particularly within the rectosigmoid. Electronically signed by: Celestino Leahy MD 06/24/2024 01:11 AM [facility]
[2024-06-23 21:03] VITALS: BP 108/62; PULSE 16; RESP 85; TEMP 36.6; O2SAT 98; BMI 26.9
[2024-06-23 21:30] LABS: MANUAL DIFF FLAG NO
[2024-06-23 21:32] LABS: Basophils Percent Auto 0.3 % (0-2); Eosinophils Percent Auto 0.4 % (0-4); Imm Gran Abs Auto 0.03 X10*3/uL (0.00-0.03); Imm Gran Pct Auto 0.3 % (0.0-0.4); Lymphocytes Absolute Auto 2.9 X10*3/uL (1.2-4.9); Lymphocytes Percent Auto 28.6 % (20-40); Mean Corpuscular HGB Conc 32.5 g/dl (31.0-35.0); Mean Corpuscular Hemoglobin 26.4 pg (27.0-33.0); Mean Corpuscular Volume 81.1 fL (80.0-98.0); Mean Platelet Volume 9.5 fL (9.4-12.3); Monocytes Absolute Auto 0.5 X10*3/uL (0.1-1.2); Monocytes Percent Auto 4.6 % (2-11); Neutrophils Absolute Auto 6.7 x10*3/uL (2.0-8.3); Neutrophils Percent Auto 65.8 % (45-73); Platelet Count 334 X10*3/uL (160-400); Red Blood Count 4.93 X10*6/uL (4.20-5.50); White Blood Count 10.1 X10*3/uL (4.8-10.8)
[2024-06-23 21:33] LABS: Appearance Urine Clear; Color Urine Yellow; Glucose Urine UA Negative (Negative); Leukocyte Esterase Urine Trace (Negative); Nitrite Urine Negative (Negative); PH 7.5 (5.0-9.0); Specific Gravity - Urine <= 1.005 (1.005-1.025); UMIC TRIGGER UACC YES; UPreg QC Valid YES; Urine Blood Negative (Negative); Urine Ketones Negative (Negative); Urine Pregnancy NEGATIVE (NEGATIVE); Urine Protein Negative (Neg-Trace)
[2024-06-23 21:36] LABS: Bacteria Urine 1+ (None Seen); Hyaline Casts Urine 0-2 /LPF (0-2); RBC Urine 0-2 /HPF (0-2); Squamous Epithelial Cell Urine 0-2 /HPF (0-2); WBC Urine 0-5 /HPF (0-5)
[2024-06-23 21:47] LABS: Alanine Aminotransferase 23 U/L (0-31); Albumin Level 4.9 g/dL (3.5-5.0); Alkaline Phosphatase 90 U/L (39-117); Anion Gap 13 (12-20); Aspartate Amino Transferase 22 U/L (5-31); Bilirubin Total 0.3 mg/dL (0.0-1.0); Blood Urea Nitrogen 6 mg/dL (9-16); Calcium 9.7 mg/dL (8.4-10.2); Carbon Dioxide 25 mmol/L (22-29); Chloride 104 mmol/L (96-108); Creatinine Clr Calc Pharmacy 132.4; Estimated Glomerular Filt Rate > 60; Glucose Random 80 mg/dL (60-115); Potassium 3.6 mmol/L (3.3-5.1); Sodium 138 mmol/L (135-145)
--- OUTSIDE RECORDS SUMMARY | 2024-06-24 00:19 | XMS_ITS | Continuity of Care Document ---
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
--- OUTSIDE RECORDS SUMMARY | 2024-06-24 00:20 | XMS_ITS | Continuity of Care Document ---
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 Role Phone Ok Rene DO Primary Care Physician [phone] [place] [facility] [place]): [place]05/24 - 03/12/24 [email or web address] [facility] [address] [facility], [address] [place] [address]- Attending Physician: Ayush Tatum MD Allergies, Adverse Reactions, Alerts No Known [...] oldest [Reference Range]: 1 Height 155 cm (03/05/24 4:58 PM) Weight 80.3 kg (03/05/24 4:58 PM) Pulse Rate [55-90 bpm] 99 bpm *H* (03/05/24 4:58 PM) Body Mass Index [18.5-24.99 kg/m2] 33.42 kg/m2 *>HHI* (03/05/24 4:58 PM) Blood Pressure [90-138/55-84 mm Hg] 117/ 69mm Hg (03/05/24 4:58 PM) Blood pressure sites Arm, left (03/05/24 4:58 PM) Dry Weight 80.3 kg (03/05/24 4:58 PM) Weight Obtained Via Standing scale (03/05/24 4:58 PM) Dry Weight Obtained Via Standing scale (03/05/24 4:58 PM) Social History Social History Type Response Smoking Status Never (less than 100 in lifetime) entered on: 07/18/18 Sex Patient Care team information Care Team Personnel Name: Priya PERAZA, Phuong Jacobs 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: [facility] 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
--- OUTSIDE RECORDS SUMMARY | 2024-06-24 00:21 | XMS_ITS | Patient Health Record ---
Author Organization [facility] Address [address] [place] [address] Support Name Relationship Address Phone Sona Newsome Guarantor Unknown Reason For Referral No Information Problems Problem Type SNOMED Code ICD Code Onset Dates Problem Status W/U Status Risk Notes Problem Pain in right hand ([id number]) Pain in right hand (M79.641) Active confirmed Plan Of Treatment Pending Test Test Name Order Date X ray : Hand, right 07/11/2021 Insurance Providers Payer Name Payer Address Payer Phone Subscriber Number Group Number Insured Name Patient Relationship to Insured Coverage Start Date Coverage End Date [employer] [address] Juan littlejohn, [place] [address] [id number] Sona Newsome Self - patient is the insured
--- NOTE | 2024-06-24 00:26 | ED.ABDPAIN ---
HPI - Abdominal Pain General Chief Complaint: Abdominal Pain Stated Complaint: vomiting, L abdominal pain, UTI symptoms Time Seen by Provider: 06/24/24 00:23 Source: patient Mode of arrival: ambulatory Limitations: no limitations History of Present Illness ED Provider: meliton GARCIA narrative: Patient with hx of constipation for last 1 week trying the MiraLax without much response able to eat says she vomited several times history of same few years ago CT scan was negative at that time no fever no chills Related Data Previous Rx's ?Medication ?Instructions ?Recorded acetaminophen 500 mg tablet 500 mg PO Q6H PRN pain or fever 11/10/21 (Tylenol Extra Strength) #14 tabs benzonatate 200 mg capsule 200 mg PO TID PRN cough #20 caps 11/10/21 fluticasone propionate 50 2 spray intranasal DAILY #16 grams 11/10/21 mcg/actuation nasal spray,suspension (Flonase Allergy Relief) ibuprofen 400 mg tablet 400 mg PO Q6H 7 days #14 tabs 11/10/21 docusate sodium 100 mg capsule 100 mg PO BID #20 caps 02/18/23 (Colace) ketorolac 10 mg tablet 10 mg PO TID PRN pain 5 days #15 02/18/23 tabs polyethylene glycol 3350 17 17 g PO BID PRN constipation #238 02/18/23 gram/dose oral powder (Miralax) grams sennosides 8.6 mg tablet (senna) 8.6 mg PO BEDTIME #14 tabs 02/18/23 nitrofurantoin 100 mg PO BID 5 days #10 caps 02/24/23 monohydrate/macrocrystals 100 mg capsule (Macrobid) nitrofurantoin 100 mg PO Q12H 7 days #14 caps 02/04/24 monohydrate/macrocrystals 100 mg capsule (Macrobid) famotidine 20 mg tablet (Pepcid) 20 mg PO DAILY PRN abdominal 06/24/24 discomfort #30 tabs lactulose 20 gram/30 mL oral 20 g (30 mL) PO DAILY #1,200 mL 06/24/24 solution ondansetron 4 mg disintegrating 4 mg PO Q8H PRN nausea and 06/24/24 tablet vomiting #20 tabs Allergies Allergy/AdvReac Type Severity Reaction Status Date / Time amoxicillin Allergy Hives Verified 06/23/24 21:06 Review of Systems Review of Systems Yes all other systems are reviewed and are negative FORMERLY [facility], [facility] Past Medical History Medical History No known health problems Social History Social History Alcohol intake: current Alcohol intake frequency: holidays/special occasions only Patient Tobacco Use Status: Never used Tobacco Substance Use Type: Marijuana Advance Directives: No Advance Directives Information Provided: Yes Physical Exam ED Vital Signs: Vital Signs - 24 hr 06/23/24 21:03 06/24/24 00:32 06/24/24 04:40 Temperature 97.8 F 97.8 F 97.6 F Pulse Rate 16 L 87 94 Respiratory Rate 85 H 16 16 Blood Pressure 108/62 102/57 L 96/53 L Pulse Oximetry 98 97 97 Oxygen Delivery Method Room Air Room Air Room Air BMI result Body Mass Index 26.9 Appearance: Alert. Oriented X3. No acute distress. Eyes: No pallor or icterus ENT: Pharynx normal. Oral Mucosa moist Neck: Normal inspection. Neck supple. CVS: Normal heart rate and rhythm. Pulses normal. Respiratory: No respiratory distress. Equal air entry bilateral, no wheezing/rales/rhonchi Abdomen: Soft and mild diffuse tenderness lower abdomen Bowel sounds are present, no mass palpable, no CVA tenderness Skin: Skin warm and dry. Normal skin color. Normal skin turgor. Extremities: No lower extremity edema. No calf tenderness Neuro: Oriented X 3. Course Course Course Narrative: I received patient care at 131am - patient has had constipation and lower abdominal pain and rectal pain x 3 days with nausea. No fevers noted, has had constipation but never this bad in the past. No issues at , no abdominal surgeries. Tried miralax without relief. Admits her water intake is poor. At this time plan for rectal exam, enema, PO medications and observe her. She has no risk factors for SBO had same pain in January [address] scan patient is feeling much better there is no mass or obstruction on the CT scan I reviewed her results she wants to try to have BM at home Will Rx medications I will also refer to GI Reevaluation(s) Reevaluation #1: vomiting up all meds at this point I think we should get images and give her IVF and nausea meds Medical Decision Making Medical Decision Making MDM Narrative: Patient with large amount of stool in the rectum sigmoid area patient preferred another provider for rectal exam signed out to Dr. Delgado Lab Data MDM Lab Attestation statement: I reviewed the patient's lab results. 06/23/24 21:25 06/23/24 21:25 Labs: Lab Results 06/23/24 Range/Units 21:25 WBC 10.1 (4.8-10.8) X10*3/uL RBC 4.93 (4.20-5.50) X10*6/uL Hgb 13.0 (12.0-16.0) g/dl Hct 40.0 (37.0-47.0) % MCV 81.1 (80.0-98.0) fL MCH 26.4 L (27.0-33.0) pg MCHC 32.5 (31.0-35.0) g/dl RDW 14.0 (11.0-16.0) % Plt Count 334 (160-400) X10*3/uL MPV 9.5 (9.4-12.3) fL Immature Gran % (Auto) 0.3 (0.0-0.4) % Neut % (Auto) 65.8 (45-73) % Lymph % (Auto) 28.6 (20-40) % Mckean % (Auto) 4.6 (2-11) % Eos % (Auto) 0.4 (0-4) % Baso % (Auto) 0.3 (0-2) % Lymph # (Auto) 2.9 (1.2-4.9) X10*3/uL Mckean # (Auto) 0.5 (0.1-1.2) X10*3/uL Eos # (Auto) 0.0 (0.0-0.4) X10*3/uL Baso # (Auto) 0.0 (0.0-0.2) X10*3/uL Abs Immat Gran (auto) 0.03 (0.00-0.03) X10*3/uL Absolute Neuts (auto) 6.7 (2.0-8.3) x10*3/uL Absolute Nucleated RBC 0.000 (0.0-0.012) X10*3/uL Nucleated RBC % (auto) 0.0 (0.0-0.2) /100WBC Sodium 138 (135-145) mmol/L Potassium 3.6 (3.3-5.1) mmol/L Chloride 104 (96-108) mmol/L Carbon Dioxide 25 (22-29) mmol/L Anion Gap 13 (12-20) BUN 6 L (9-16) mg/dL Creatinine 0.68 (0.5-1.4) mg/dL Estim Creat Clear Calc 132.4 Estimated GFR > 60 Random Glucose 80 (60-115) mg/dL Calcium 9.7 D (8.4-10.2) mg/dL Total Bilirubin 0.3 (0.0-1.0) mg/dL AST 22 (5-31) U/L ALT 23 (0-31) U/L Alkaline Phosphatase 90 (39-117) U/L Total Protein 8.0 (6.5-8.0) g/dL Albumin 4.9 (3.5-5.0) g/dL Urine Color Yellow Urine Appearance Clear Urine pH 7.5 (5.0-9.0) Ur Specific [place] <= 1.005 (1.005-1.025) Urine Protein Negative (Neg-Trace) mg/dL Urine Glucose (UA) Negative (Negative) mg/dL Urine Ketones Negative (Negative) mg/dL Urine Blood Negative (Negative) Urine Nitrite Negative (Negative) Ur Leukocyte Esterase Trace H (Negative) Urine RBC 0-2 (0-2) /HPF Urine WBC 0-5 (0-5) /HPF Ur Squamous Epith Cells 0-2 (0-2) /HPF Urine Bacteria 1+ (None Seen) Hyaline Casts 0-2 (0-2) /LPF Urine Test NEGATIVE (NEGATIVE) Radiology Impression Discussion of test interpretation with radiology: I have reviewed the radiologist's reading. Radiologist Impression: XR/XR KUB IMPRESSION: 1. Nonobstructive bowel gas pattern. 2. Retained stool throughout particularly within the rectosigmoid. Electronically signed by: Celestino Leahy MD 06/24/2024 01:11 AM EST Workstation: JR Medications Administered Discontinued Medications Generic Name Dose Route Start Last Admin Trade Name Freq PRN Reason Stop Dose Admin Diphenhydramine HCl 25 mg 06/24/24 02:22 06/24/24 02:30 Diphenhydramine Hcl 50 Mg/Ml Vial IVPUSH 06/24/24 02:23 25 mg ONCE ONE Administration Sodium Chloride 1,000 mls @ 999 mls/hr 06/24/24 02:22 06/24/24 03:31 Ns IV 06/24/24 03:22 Infused .Q1H1M ONE Infusion Iohexol 85 ml 06/24/24 04:34 06/24/24 04:35 Iohexol 350 Mg/Ml 100 Ml Infus..Btl IV 06/24/24 04:35 85 ml ONCE ONE Administration Lactulose 30 gm 06/24/24 01:30 06/24/24 01:40 Lactulose 20 Gm/30 Ml Solution PO 06/24/24 01:31 30 gm ONCE ONE Administration Lorazepam 1 mg 06/24/24 01:46 06/24/24 01:50 Lorazepam 1 Mg Tablet PO 06/24/24 01:47 1 mg ONCE ONE Administration Magnesium Hydroxide 30 ml 06/24/24 00:32 06/24/24 01:10 Milk Of Magnesia 30 Ml Oral.Susp PO 06/24/24 00:33 30 ml ONCE ONE Administration Mineral Oil 133 ml 06/24/24 01:30 06/24/24 01:46 Mineral Oil Enema 133 Ml Enema VT 06/24/24 01:31 133 ml ONCE ONE Administration Ondansetron HCl 4 mg 06/24/24 01:46 06/24/24 01:50 Ondansetron Odt 4 Mg Tab.Rapdis TRANSLINGU 06/24/24 01:47 4 mg ONCE ONE Administration Prochlorperazine Edisylate 10 mg 06/24/24 02:22 06/24/24 02:30 Prochlorperazine Edisylate 10 Mg/2 Ml Vial IVPUSH 06/24/24 02:23 10 mg ONCE ONE Administration Senna 8.8 mg 06/24/24 01:31 06/24/24 01:46 Sennosides 8.6 Mg Tablet PO 06/24/24 01:32 8.8 mg ONCE ONE Administration Discharge Plan Discharge Clinical Impression: Constipation Qualifiers: Constipation type: unspecified constipation type Qualified Code(s): K59.00 - Constipation, unspecified Patient Disposition: Home, Self-Care Instructions: Constipation (DC) Additional Instructions: labs and urine reassuring. return for any worsening symptoms or concerns please follow up with GI doctor at least 60 ounces of water a day. CT scan shows fluid and mild distention of the small bowel but no obstruction or transition point if you develop fevers, unable to eat or drink please return. Prescriptions: New famotidine [Pepcid] 20 mg tablet 20 mg PO DAILY PRN (Reason: abdominal discomfort) Qty: 30 0RF ondansetron 4 mg tablet,disintegrating 4 mg PO Q8H PRN (Reason: nausea and vomiting) Qty: 20 0RF lactulose 20 gram/30 mL solution 20 g PO DAILY Qty: 1200 0RF No Action benzonatate 200 mg capsule 200 mg PO TID PRN (Reason: cough) Qty: 20 0RF acetaminophen [Tylenol Extra Strength] 500 mg tablet 500 mg PO Q6H PRN (Reason: pain or fever) Qty: 14 0RF ibuprofen 400 mg tablet 400 mg PO Q6H 7 Days Qty: 14 0RF fluticasone propionate [Flonase Allergy Relief] 50 mcg/actuation spray,suspension 2 spray intranasal DAILY Qty: 16 0RF Rx Instructions: administer into each nostril ketorolac 10 mg tablet 10 mg PO TID PRN (Reason: pain) 5 Days Qty: 15 0RF sennosides [senna] 8.6 mg tablet 8.6 mg PO BEDTIME Qty: 14 0RF docusate sodium [Colace] 100 mg capsule 100 mg PO BID Qty: 20 0RF polyethylene glycol 3350 [Miralax] 17 gram/dose powder 17 g PO BID PRN (Reason: constipation) Qty: 238 0RF nitrofurantoin monohyd/m-cryst [Macrobid] 100 mg capsule 100 mg PO BID 5 Days Qty: 10 0RF Rx Instructions: must administer with a meal/food nitrofurantoin monohyd/m-cryst [Macrobid] 100 mg capsule 100 mg PO Q12H 7 Days Qty: 14 0RF Rx Instructions: must administer with a meal/food Referrals: [facility] [Provider Group] Stand Alone Forms: Work/School Release Print Language: Citizen Of [place]
[2024-06-24 00:32] VITALS: BP 102/57; PULSE 87; RESP 16; TEMP 36.6; O2SAT 97
[2024-06-24] MEDS: Milk of Magnesia 30 ML ORAL.SUSP PO (01:10)
[2024-06-24] MEDS: Lactulose 20 GM/30 ML SOLUTION 30 GM PO (01:40)
[2024-06-24] MEDS: Mineral OiL enema 133 ML ENEMA PR (01:46)
[2024-06-24] MEDS: Sennosides 8.6 MG TABLET 8.8 MG PO (01:46)
[2024-06-24] MEDS: Ondansetron ODT 4 MG TAB.RAPDIS TRANSLINGU (01:50)
[2024-06-24] MEDS: LORazepam 1 MG TABLET PO (01:50)
[2024-06-24] MEDS: Prochlorperazine Edisylate 10 MG/2 ML VIAL IVPUSH (02:30)
[2024-06-24] MEDS: diphenhydrAMINE HCL 50 MG/ML VIAL 25 MG IVPUSH (02:30)
[2024-06-24] MEDS: 0.9 % Sodium Chloride 1,000 ML 999 ML IV (02:30)
[2024-06-24] MEDS: iohexoL 350 MG/ML 100 ML INFUS..BTL 85 ML IV (04:35)
[2024-06-24 04:40] VITALS: BP 96/53; PULSE 94; RESP 16; TEMP 36.4; O2SAT 97
[2024-06-24 06:29] VITALS: BP 99/60; PULSE 97; RESP 16; TEMP 36.5; O2SAT 98
[2024-06-24 07:01] VITALS: BP 99/60; PULSE 97; RESP 16; TEMP 36.5; O2SAT 98
== END 2024-06-24 07:02 | disposition home or self-care (01) ==
PROVIDERS: Internal Medicine; Emergency Provider Emergency Medicine; PCP Pediatrics
DX: K59.00 Constipation, unspecified (principal); R14.0 Abdominal distension (gaseous)
CPT/HCPCS: 36415; 74018; 74177; 80053; 81001; 81025; 85025; 96361; 96374; 96375; 99284; J0737; J1200; Q9967

== ENCOUNTER 2025-02-07 16:26 | Emergency (ER) | payer OTHER, SELFPAY ==
--- NOTE | ~2025-02-07 | XR_ITS ---
CLINICAL HISTORY: trauma, pain 3 view right hand Comparison: None provided Findings: Bones intact. No dislocations. No significant loss of joint space or osteophytes. No erosions. No radiopaque foreign body. IMPRESSION: 1. No acute findings This document has been electronically signed by: Alek Rutledge MD on 02/07/2025 17:45:28
[2025-02-07 16:59] VITALS: BP 132/68; PULSE 112; RESP 16; TEMP 36.4; O2SAT 99; BMI 38.1
--- NOTE | 2025-02-07 17:03 | ED.GENADULT ---
HPI - General Adult General Chief complaint: Extremity Injury, Upper Stated complaint: right hand crushed by driveway gate Time Seen by Provider: 02/07/25 17:05 Source: patient and RN notes reviewed Limitations: no limitations History of Present Illness HPI narrative: 25-year-old female, currently 30 weeks , presents for evaluation of right hand pain after she accidentally had it is crushed between a metal gate. Patient states she was holding her dog via a leash and attempting to close the gate when it closed on her hand. She is right-hand dominant. She does have mild tingling to the right, 2nd digit. There is some bruising in this area. She did not try any medication for this. No paralysis. She denies any -related complaints. No abdominal pain. Related Data Previous Rx's ?Medication ?Instructions ?Recorded acetaminophen 500 mg tablet 500 mg PO Q6H PRN pain or fever 11/10/21 (Tylenol Extra Strength) #14 tabs benzonatate 200 mg capsule 200 mg PO TID PRN cough #20 caps 11/10/21 fluticasone propionate 50 2 spray intranasal DAILY #16 grams 11/10/21 mcg/actuation nasal spray,suspension (Flonase Allergy Relief) ibuprofen 400 mg tablet 400 mg PO Q6H 7 days #14 tabs 11/10/21 docusate sodium 100 mg capsule 100 mg PO BID #20 caps 02/18/23 (Colace) ketorolac 10 mg tablet 10 mg PO TID PRN pain 5 days #15 02/18/23 tabs polyethylene glycol 3350 17 17 g PO BID PRN constipation #238 02/18/23 gram/dose oral powder (Miralax) grams sennosides 8.6 mg tablet (senna) 8.6 mg PO BEDTIME #14 tabs 02/18/23 nitrofurantoin 100 mg PO BID 5 days #10 caps 02/24/23 monohydrate/macrocrystals 100 mg capsule (Macrobid) nitrofurantoin 100 mg PO Q12H 7 days #14 caps 02/04/24 monohydrate/macrocrystals 100 mg capsule (Macrobid) famotidine 20 mg tablet (Pepcid) 20 mg PO DAILY PRN abdominal 06/24/24 discomfort #30 tabs lactulose 20 gram/30 mL oral 20 g (30 mL) PO DAILY #1,200 mL 06/24/24 solution ondansetron 4 mg disintegrating 4 mg PO Q8H PRN nausea and 06/24/24 tablet vomiting #20 tabs Allergies Allergy/AdvReac Type Severity Reaction Status Date / Time amoxicillin Allergy Hives Verified 02/07/25 17:00 Review of Systems Review of Systems: Yes all other systems are reviewed and are negative Musculoskeletal: Comments: Pain to the right hand PMFSH Past Medical History Medical History No known health problems Social History Social History Alcohol intake: current Alcohol intake frequency: holidays/special occasions only Patient Tobacco Use Status: Never used Tobacco Substance Use Type: Marijuana Advance Directives: No Advance Directives Information Provided: No Do you have a plan to hurt others: No Plan Physical Exam ED Vital Signs: Vital Signs - 24 hr 02/07/25 16:59 Temperature 97.6 F Pulse Rate 112 H Respiratory Rate 16 Blood Pressure 132/68 Pulse Oximetry 99 Oxygen Delivery Method Room Air BMI result Body Mass Index 38.1 Const General: cooperative, alert and awake Extrem Other: Psychiatric Nursing Assistant is 5/5 on the left, 4/5 of the right 2nd toe pain. There is slight ecchymosis surrounding the dorsum of the right 2nd and 3rd digits in the area of the MCP. Capillary refills less than 2 seconds. Mild diffuse tenderness along the 2nd and 3rd digits. Course Course Course Narrative: Preliminary review of x-ray, does not reveal any acute process. Reviewed preliminary findings with the patient. She feels comfortable with discharge plan home. She will continue symptomatic treatment with ice and Tylenol. Patient expresses understanding of all discharge instructions and has no further questions at this time. Medical Decision Making Medical Decision Making MDM Narrative: 25-year-old female, 30 weeks with contusion to the right 2nd and 3rd digits. Check x-ray to further evaluate for fracture. Differential Diagnosis Differential Diagnoses: The differential diagnosis associated with the presentation includes Fracture Dislocation Contusion Sprain Independent Interpretation I performed an independent interpretation of an: Plain X-Ray (Right hand) Interpretation: No acute process of the right hand Prescription Management I considered prescription management with: Pain Medication Discharge Plan Discharge Clinical Impression: Contusion of hand, right Patient Disposition: Home, Self-Care Instructions: Contusion in Adults (ED) Additional Instructions: Rest. Ice. Tylenol for pain. Follow-up with your primary care provider. Call this week to schedule a follow-up appointment. Return to the emergency department if you have any worsening of symptoms, or any concerns. Get well soon! Prescriptions: No Action benzonatate 200 mg capsule 200 mg PO TID PRN (Reason: cough) Qty: 20 0RF acetaminophen [Tylenol Extra Strength] 500 mg tablet 500 mg PO Q6H PRN (Reason: pain or fever) Qty: 14 0RF ibuprofen 400 mg tablet 400 mg PO Q6H 7 Days Qty: 14 0RF fluticasone propionate [Flonase Allergy Relief] 50 mcg/actuation spray,suspension 2 spray intranasal DAILY Qty: 16 0RF Rx Instructions: administer into each nostril famotidine [Pepcid] 20 mg tablet 20 mg PO DAILY PRN (Reason: abdominal discomfort) Qty: 30 0RF ondansetron 4 mg tablet,disintegrating 4 mg PO Q8H PRN (Reason: nausea and vomiting) Qty: 20 0RF lactulose 20 gram/30 mL solution 20 g PO DAILY Qty: 1200 0RF ketorolac 10 mg tablet 10 mg PO TID PRN (Reason: pain) 5 Days Qty: 15 0RF sennosides [senna] 8.6 mg tablet 8.6 mg PO BEDTIME Qty: 14 0RF docusate sodium [Colace] 100 mg capsule 100 mg PO BID Qty: 20 0RF polyethylene glycol 3350 [Miralax] 17 gram/dose powder 17 g PO BID PRN (Reason: constipation) Qty: 238 0RF nitrofurantoin monohyd/m-cryst [Macrobid] 100 mg capsule 100 mg PO BID 5 Days Qty: 10 0RF Rx Instructions: must administer with a meal/food nitrofurantoin monohyd/m-cryst [Macrobid] 100 mg capsule 100 mg PO Q12H 7 Days Qty: 14 0RF Rx Instructions: must administer with a meal/food Stand Alone Forms: Work/School Release Print Language: Wolof
[2025-02-07 17:52] VITALS: BP 132/68; PULSE 112; RESP 16; TEMP 36.4; O2SAT 99
== END 2025-02-07 17:53 | disposition home or self-care (01) ==
PROVIDERS: Emergency Provider Emergency Medicine; PCP Pediatrics
DX: S60.221A Contusion of right hand, initial encounter (principal); X58.XXXA Exposure to other specified factors, initial encounter; Y93.9 Activity, unspecified; Y92.9 Unspecified place or not applicable; Y99.8 Other external cause status
CPT/HCPCS: 73130; 99282; 99283

== ENCOUNTER → 2025-02-07 17:04 | Outpatient (BNV) | payer OTHER, SELFPAY | PROVIDERS: Emergency Provider Emergency Medicine; PCP Pediatrics; Visit Provider Radiology Diagnostic Radiology | DX: M79.641 Pain in right hand (principal) | CPT/HCPCS: 73130 ==

== ENCOUNTER 2025-06-07 20:55 | Emergency (ER) | payer OTHER, SELFPAY ==
--- OUTSIDE RECORDS SUMMARY | 2025-06-03 23:59 | XMS_ITS | Continuity of Care Document ---
Author Organization [facility] Address [address] [place] [address]- Care Team Providers Care Junior Bookkeeper Name Role Phone Ok Rene DO Primary Care Physician Encounter [facility] Date(s[facility] [address] [place], [place] [address] Attending Physician: Aniya Paige Admitting Physician: Aniya Paige Referring Physician: Aniya Paige Encounter Type: Triage Allergies, Adverse Reactions, Alerts Substance Criticality Severity Reaction Reaction Severity Status amoxicillin Hives Active Adhesive Bandage Rash Act river Immunizations Given and Recorded Vaccine Date Status Refusal Reason tetanus/diphtheria/pertussis, acel(Tdap) 01/26/25 Given SARS-CoV-2 (COVID-19) mRNA-1273 vaccine 08/15/21 R ecorded SARS-CoV-2 (COVID-19) mRNA-1273 vaccine 09/16/20 R ecorded SARS-CoV-2 (COVID-19) mRNA-1273 vaccine 08/19/20 R ecorded Medications aspirin 81 mg oral delayed release tablet 2 tablet = 162 mg, By Mouth, Daily at bedtime, # 180 tablet, 4 Refills, Maintenance, 09/29/24 3:28:00PM EST, CR Tablet, [id number], Partial fill upon patient request if the prescription is for a schedule II opioid drug., 155, cm, 09/29/24 15:05:00 EST, Height, 83.3, kg, 09/29/24 15:0 5:00 EST, Dry Weight Start Date: 09/29/24 Stop Date: 12/23/25 Status: Ordered Medication Dispense Status: Completed Quantity: 180.0 Unit: tablet Total Allowed Fills: 5 Fills Dispensed: 0 Renee 0.35 mg oral tablet 1 tablet = 0.35 mg, By Mouth, Daily, # 84 tablet, 0 Refills, Maintenance, 03/26/25 6:51:00 AM EDT, Tablet, [facility], Partial fill upon patient request if the prescription is for a schedule II opioid drug., 155, cm, 03/26/25 0:14:00 EDT, Height, 94.4, kg, 03/23/25 10:57:00 EDT, Dry Weight Start Date: 03/26/25 Status: Ordered Medication Dispense Status: Completed Quantity: 84.0 Unit: tablet Total Allowed Fills: 1 Fills Dispensed: 0 duloxetine 60 mg oral enteric coated capsule 1 capsule, By Mouth, Daily, # 30 capsule, 0 Refills, Maintenance, 04/09/25 9:49:00 AM EDT, [id number], 155, cm, 04/01/25 13:49:00 EDT, Height, 94.4, kg, 03/23/25 10:57:00 EDT, Dry Weight Start Date: 04/09/25 Status: Ordered Medication Dispense Status: Completed Quantity: 30.0 Unit: capsule Total Allowed Fills: 1 Fills Dispensed: 0 famotidine 20 mg oral tablet 20 mg, 1, tablet, By Mouth, Daily, Refills 0, Maintenance, 08/08/24 7:11:00 PM EST, Partial fill upon patient request if the prescription is for a schedule II opioid drug. Start Date: 08/08/24 Status: Ordered Medication Dispense Status: Completed Total Allowed Fills: 1 Fills Dispensed: 0 ferrous sulfate 160 mg oral tablet, extended release 1 tablet = 160 mg, By Mouth, Daily, # 30 tablet, 0 Refills, Maintenance, 03/23/25 11:05:00 AM EDT, ER Tablet, Partial fill upon patient request if the prescription is for a schedule II opioid drug. Start Date: 03/23/25 Status: Ordered Medication Dispense Status: Completed Quantity: 30.0 Unit: tablet Total Allowed Fills: 1 Fills Dispensed: 0 MiraLax oral powder for reconstitution = 17 Gm, By Mouth, Daily, PRN Constipation, dissolve in water before taking dissolve in 4 to 8 oz of beverage, # 255 Gm, 0 Refills, Maintenance, 03/26/25 6:51:00 AM EDT, REC Powder, [facility], Partial fill upon patient request if the prescription is for a schedule II opioid drug., 17 Gm By Mouth Daily,x30 days,PRN:Constipation,Instr:dissolve in water before taking; dissolve in4 to 8 oz of beverage, 155, cm, 03/26/25 0:14:00 EDT, Height, 94.4, kg, 03/23/25 10:57:00 EDT, Dry Weight Start Date: 03/26/25 Stop Date: 04/25/25 Status: Ordered Medication Dispense Status: Completed Quantity: 255.0 Unit: g Total Allowed Fills: 1 Fills Dispensed: 0 Multivitamins By Mouth, Daily, 0 Refills, Maintenance, 08/08/24 7:12:00 PM EST, Partial fill upon patient request if the prescription is for a schedule II opioid drug. Start Date: 08/08/24 Status: Ordered Medication Dispense Status: Completed Total Allowed Fills: 1 Fills Dispensed: 0 Senna 8.6 mg oral tablet 17.2 mg, 2, tablet, By Mouth, Daily at bedtime, PRN, with plenty of water, # 28 tablet, Refills 0, Tot. Refills 0, Maintenance, for constipation, 03/26/25 6:51:00 AM EDT, Route to Pharmacy Electronically, [facility] Tablet, Partial fill upon patient request if the prescription isfor a schedule II opioid drug., 155, cm, 03/26/25 0:14:00 EDT, Height, 94.4, kg, 03/23/25 10:57:00 EDT, Dry Weight Start Date: 03/26/25 Stop Date: 04/25/25 Status: Ordered Medication Dispense Status: Completed Quantity: 28.0 Unit: tablet Total Allowed Fills: 1 Fills Dispensed: 0 Problem List Condition Confirmation Course Effective Dates Status Health St atus Informant Allergy to amoxicillin Confirmed Active ADD (attention deficit disorder) Confirmed Active GERD (gastroesophageal reflux disease) Confirmed Active Anxiety and depression Confirmed Active Obese class I Confirmed Active Gestational hypertension Confirmed Active Chronic migraine with aura Confirmed Active UTI in Confirmed Active Social History Social History Type Response Smoking Status Never (less than 100 in lifetime) entered on: 07/18/18 Sexual Orientation Self described orien tation: ; Straight or heterosexual Sex Sex Representation Female (finding) Patient Care team information Care Team Personnel Name: Priya PERAZA, Phuong Jacobs Position: [facility] FUGITIVE INVESTIGATOR MD Member Role: Lifetime Consulting Physician Address: [address] [place] [address], [address] [facility] [place] [address]- Telecom: Name: Ok Rene DO Position: Reference Physician Member Role: PCP Address: [address] [place] [address] [facility] [place], [place] [address] Telecom: Care Team Related Persons Name: RAVINDER RAMIREZ Name: JEANNIE YANEZ Name: RAVINDER FERNANDES Name: DARBY MERCEDES Name: CITLALLI CALDERON Insurance Providers Guarantor name: RAVINDER FERNANDES Health Plan Information #: 1 Payer: [employer]UE [employer]IT [employer] PPO Payer Identifier: NA Member Number: [id number] Group Number: [id number] Subscriber Identifier: NA Relationship to Subscriber: self Coverage Type: BLUE CROSS/BLUE SHIELD Coverage Verification Date: NA Telecom: NA Address:
--- NOTE | ~2025-06-07 | US_ITS ---
CLINICAL HISTORY: R leg pain swelling redness Venous duplex ultrasound right lower extremity Comparison: None provided Findings: The visualized deep veins are fully compressible with normal Doppler color flow and spectral tracings. Imaged superficial soft tissues are unremarkable for technique. IMPRESSION: 1. Negative for right lower extremity deep vein thrombosis. This document has been electronically signed by: Fercho Hickey MD on 06/07/2025 22:38:25
[2025-06-07 20:56] VITALS: BP 145/76; PULSE 110; RESP 16; TEMP 36.6; O2SAT 98; BMI 36.5
[2025-06-07 21:15] LABS: MANUAL DIFF FLAG NO
[2025-06-07 21:17] LABS: Hematocrit 33.7 % (37.0-47.0); Hemoglobin 10.0 g/dl (12.0-16.0); Imm Gran Abs Auto 0.03 X10*3/uL (0.00-0.03); Imm Gran Pct Auto 0.3 % (0.0-0.4); Lymphocytes Absolute Auto 2.6 X10*3/uL (1.2-4.9); Mean Corpuscular HGB Conc 29.7 g/dl (31.0-35.0); Mean Corpuscular Hemoglobin 22.1 pg (27.0-33.0); Mean Corpuscular Volume 74.6 fL (80.0-98.0); NRBC Abs Auto 0.000 X10*3/uL (0.0-0.012); NRBC Pct Auto 0.0 /100WBC (0.0-0.2); Platelet Count 420 X10*3/uL (160-400); Red Blood Count 4.52 X10*6/uL (4.20-5.50); White Blood Count 11.0 X10*3/uL (4.8-10.8)
[2025-06-07 21:29] LABS: Alanine Aminotransferase 32 U/L (0-31); Albumin Level 4.9 g/dL (3.5-5.0); Alkaline Phosphatase 130 U/L (39-117); Anion Gap 15 (12-20); Aspartate Amino Transferase 22 U/L (5-31); Blood Urea Nitrogen 12 mg/dL (9-16); Calcium 9.5 mg/dL (8.4-10.2); Carbon Dioxide 23 mmol/L (22-29); Chloride 107 mmol/L (96-108); Creatinine Clr Calc Pharmacy 108.1; Estimated Glomerular Filt Rate > 60; Magnesium 1.9 mg/dL (1.6-2.6); Potassium 4.2 mmol/L (3.3-5.1); Sodium 141 mmol/L (135-145); Total Protein 7.9 g/dL (6.5-8.0)
--- OUTSIDE RECORDS SUMMARY | 2025-06-07 21:29 | XMS_ITS | Encounter Summary ---
Author Organization [facility] Address [address] [place] [address] Phone Care Team Providers Care Personal Injury Paralegal Name Role Phone Ok Rnee DO Primary Care Provider Encounter Details Date Type Department Care Team (Late st Contact Info) Description 05/06/2023 Procedure Pass [facility] PERIOPERATIVE DEPT [address] [place], [place] [id number] Social History Tobacco Use Types Packs/Day Years Used Date Smoking Tobacco: Never Smokeless Tobacco: Never Alcohol Use Standard Drinks/Week Comments Yes 0 (1 standard drink = 0.6 oz pur e alcohol) Only 1-2 time a month Education Answer Date Recorded Are you interested in more education? Not on alondra e 11/23/2022 Are you concerned about learning? Not on file 11/23/2022 No 11/23/2022 No 11/23/2022 Digital Access Answer Date Recorded No 12/20/2022 No 12/20/2022 Reliable internet access at home? Not on file 12/20/2022 Device with a working camera? Not on file Comments No Sex and Gender Information Value Date Recorded Sex Assigned at Female 01/25/2023 3:06 PM EDT Legal Sex Female 8:47 PM EDT Gender Identity Female 01/25/2023 3:06 PM EDT Sexual Orientation Straight 01/25/2023 3: 06 PM EDT documented as of this encounter Plan of Treatment Not on file documented as of this encounter Visit Diagnoses Not on filedocumented in this encounter Care Teams Personal Injury Paralegal Relationship Specialty Start Date End Date Ok Rene DO [address] [place] [address], [address] [place] [address] [email or web address] PCP - General Internal Medicine 12/13/22 documented as of this encounter Additional Source Comments The information contained in this document represents components of the legal health record. It is not the complete legal health record.[facility]
--- OUTSIDE RECORDS SUMMARY | 2025-06-07 21:29 | XMS_ITS | Encounter Summary ---
Author Organization [facility] Address [address] [place] [address] [place] [phone] Phone Care Team Providers Care Collections Curator Name Role Phone Marva Mosley MD Primary Care Provider [phone] Ok Rene DO Primary Care Provider Encounter Details Date Type Department Care Team (Late st Contact Info) Description 08/06/2019 Ancillary Orders [facility], X-Ray - [address] [address] Marva Mosley MD [address] [place] [address] Chronic midline low back pain without sciatica Social History Tobacco Use Types Packs/Day Years Used Date Smoking Tobacco: Never Assessed Comments Unknown Sex and Gender Information Value Date Recorded Sex Assigned at Female 01/25/2023 3:06 PM EDT Legal Sex Female 8:47 PM EDT Gender Identity Female 01/25/2023 3:06 PM EDT Sexual Orientation Straight 01/25/2023 3: 06 PM EDT documented as of this encounter Plan of Treatment Not on file documented as of this encounter Results * XR LUMBOSACRAL SPINE 4 OR MORE VIEWS (08/06/2019 12:49 PM EST) Anatomical Region Laterality Modality L-spine Radiographic Nicolette ging 08/06/2019 12:5 3 PM EST Impressions 08/06/2019 12:55 PM EST Mild L5-S1 degenerative disc disease. POS - [id number] Narrative 08/06/2019 12:55 PM EST HISTORY: As above. Pain. No trauma. COMPARISON: None. LUMBAR SPINE RADIOGRAPH FINDINGS: Five views obtained. No acute fracture or malalignment. Mild L5-S1 disc space narrowing. No compression fractures, spondylolysis or bone lesions. Soft tissues are normal. Procedure Note Rocky Crocker MD - 08/06/2019 HISTORY: As above. Pain. No trauma. COMPARISON: None. LUMBAR SPINE RADIOGRAPH FINDINGS: Five views obtained. No acute fracture or malalignment. Mild L5-S1 disc space narrowing. Nocompression fractures, spondylolysis or bone lesions. Soft tissues arenormal. IMPRESSION: Mild L5-S1 degenerative disc disease. POS - [id number] Marva Mosley MD IMG XR SPINE Final Result documented in this encounter Visit Diagnoses Diagnosis Chronic midline low back pain without sciatica Chronic midline low back pain without sciatica documented in this encounter Care Teams Collections Curator Relationship Specialty Start Date End Date Marva Mosley MD [address] [place] [address] PCP - General Pediatrics 08/06/19 12/12/22 Ok Rene DO [address] [place] [address], [address] [place] [address] [email or web address] PCP - General Internal Medicine 12/13/22 documented as of this encounter Additional Source Comments The information contained in this document represents components of the legal health record. It is not the complete legal health record.[facility]
--- OUTSIDE RECORDS SUMMARY | 2025-06-07 21:29 | XMS_ITS | Clinical Summary ---
Author Organization [facility] Address [address] [place] [address] Care Team Providers Care Senior Property Manager Name Role Phone Unknown Primary Care Provider [phone] Immunizations Immunization Administration Dates Next Due Influenza Inactivated/Split Preservative Free IM 05/10/2022 Social History Tobacco Use Types Packs/Day Years Used Date Smoking Tobacco: Never Assessed Comments Unknown Sex and Gender Information Value Date Recorded Sex Assigned at Not on file Legal Sex Female 7:56 PM EDT Gender Identity Not on file Sexual Orientation Not on file Plan of Treatment Health Maintenance Due Date Last Done Comments Hepatitis C Virus Screening 2000 HPV Vaccines (1 - 3-dose series) 02/01/2015 DTaP/Tdap/Td Vaccines (1 - Tdap) 02/01/2019 Hepatitis B Vaccines (1 of 3 - 19+ 3-dose series) 02/01/2019 Pap Smear (Ages 21-65) 02/01/2021 Influenza Vaccine 02/26/2025 05/10/2022 COVID-19 Vaccine (4 - 2024-2 6 season) 2025 08/15/2021, 09/16/2020, 08/19/2020 HIV Screening Completed 03/14/2022 Pneumococcal Vaccine: Pediatric (0-5 Years) and At-Risk Patients (6 to 49 Years) Aged Out No longer eligible b ased on patient's age to complete this topic Insurance [facility] [employer] Care Teams Senior Property Manager Relationship Specialty Start Date End Date Unknown Unknow Provider Address PCP - General 05/04/22
--- OUTSIDE RECORDS SUMMARY | 2025-06-07 21:29 | XMS_ITS | Encounter Summary ---
Author Organization [facility] Address [address] [place] [phone] Phone Care Team Providers Care Inspector And Clipper Name Role Phone Marva Mosley MD Primary Care Provider [phone] Ok Rene DO Primary Care Provider Encounter Details Date Type Department Care Team (Late st Contact Info) Description 08/06/2019 Ancillary Orders [facility], X-Ray - [address] [address] Marva Mosley MD [address] [place] [address] Social History Tobacco Use Types Packs/Day Years [...] on filedocumented in this encounter Care Teams Inspector And Clipper Relationship Specialty Start Date End Date Marva Mosley MD [address] [place] [address] PCP - General Pediatrics 08/06/19 12/12/22 Ok Rene DO [address] [place] [address], [address] [place] [address] [email or web address] PCP - General Internal Medicine 12/13/22 documented as of this encounter Additional Source Comments The information contained in this document represents components of the legal health record. It is not the complete legal health record[facility]
--- OUTSIDE RECORDS SUMMARY | 2025-06-07 21:29 | XMS_ITS | Clinical Summary ---
Author Organization [facility] Address [address] [place] [phone] Phone Care Team Providers Care Senior Education Specialist Name Role Phone Ok Rene DO Primary Care Provider Allergies Active Allergy Reactions Criticality Noted Date Comments Amoxicillin Hives,Itching,Rash Low 01/11/2023 Fluorouracil-Adhesive Bandage Rash Low 2024 Medications rizatriptan (MAXALT) 5 MG tabletIndications: Migraine with aura and without status migrainosus, not intractable Take 1 tablet (5 mg total) by mouth as needed for migraine. May repeat in 2 hours if needed 18 tablet 3 12/14/19 23 Active acetaminophen (TYLENOL) 500 MG tablet Take 1,000 mg by mouth every 8 (eight) hours as needed for pain (specific location in comments). Active ondansetron (ZOFRAN-ODT) 4 MG disintegrating tabletIndications: Nausea and vomiting, unspecified vomiting type Take 1 tablet (4 mg total) by mouth every 8 (eight) hours as needed for nausea. 15 tablet 1 07/04/20 23 Active diclofenac sodium (VOLTAREN) 75 MG EC tablet Take 1 tablet (75 mg total) by mouth 2 (two) times a day. 60 tablet 1 10/28/19 24 Active Additional Information Patient taking differently:75 mg Oral 2 times daily,prn, Reported on 11/14/2023 PNV no.95/ferrous fum/folic ac ( MULTIVITAMINS ORAL) Take by mouth. 08/08/19 25 Active famotidine (PEPCID) 20 MG tablet Take 20 mg by mouth. 01/11/20 25 Active aspirin 81 MG EC tablet take 2 tablets by mouth daily at bedtime Active ZACHARIAH 0.35 mg tabletIndications: Anxiety and depression Take 0.35 mg by mouth. 03/26/20 Active semaglutide, weight loss, (WEGOVY) 0.25 mg/0.5 mL subcutaneous pen injectionIndicatio ns:BMI 35.0-35.9,adult,En counter for weight management Inject 0.5 mL (0.25 mg total) under the skin every 7 days. 2 mL 3 05/20/20 Active DULoxetine (CYMBALTA) 30 MG capsuleIndications :Anxiety and depression Take 1 capsule (30 mg total) by mouth daily. Take with 60 mg dose for total of 90 mg. 30 capsule 05/20/20 Active DULoxetine (CYMBALTA) 60 MG capsuleIndications :Anxiety and depression Take 1 capsule (60 mg total) by mouth daily. Take with 30 mg dose for total of 90 mg. 30 capsule 05/20/20 Active busPIRone (BUSPAR) 5 MG tabletIndications: Anxiety and depression Take 1 tablet (5 mg total) by mouth 3 (three) times a day. 90 tablet 05/20/20 Active etonogestreL (NEXPLANON) 68 mg Impl Inject 68 mg under the skin Once every 3 years. 05/15/20 Discontinu ed(No longer taking) DULoxetine (CYMBALTA) 30 MG capsuleIndications :Anxiety and depression Take 1 capsule (30 mg total) by mouth daily. Take with 60 mg dose for total of 90 mg. 30 capsule 04/15/20 Discontinu ed(Reorder ) DULoxetine (CYMBALTA) 60 MG capsuleIndications :Anxiety and depression Take 1 capsule (60 mg total) by mouth daily. Take with 30 mg dose for total of 90 mg. 30 capsule 04/15/20 Discontinu ed(Reorder ) busPIRone (BUSPAR) 5 MG tabletIndications: Anxiety and depression Take 1 tablet (5 mg total) by mouth 3 (three) times a day. 90 tablet 3 04/15/20 Discontinu ed(Reorder ) predniSONE (DELTASONE) 10 MG tablet Take 6 pills orally for 2 days, 5 pills for 2 days, 4 pills for 2 days, 3 pills for 2 days, 2 pills for 2 days then 1 pill for 2 days. 42 tablet 05/20/20 25 025 Active Problems Problem Noted Date Diagnosed Date Ovarian cyst, bilateral 10/14/2023 Anxiety and depression 09/03/2023 Assessment & Plan (04/16/2025 12:56 AM EDT): Primarily anxiety-increase duloxetine to 90 mg daily, add in buspirone which can be taken as needed or up to 3 times daily. Assessment & Plan (03/17/2025 4:41 PM EDT): Worsened recently in the last few weeks despite taking medication as prescribed. Referral placed for psychiatry E consult. Continue monitoring. Assessment & Plan (10/15/2023 12:18 AM EDT): Worsened anxiety symptoms after recent life events. Depression symptoms also worsened. Will increase dose of duloxetine. Continue monitoring. Follow-up if new or worsening symptoms otherwise. 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 Will treat first and address ADD if needed. Poorly responded to SSRIs in the past due to feeling muted personality. Will trial SNRI instead. Start at 30 mg dose, titrate to effect. Will follow-up in 6 weeks for monitoring. Nausea and vomiting 07/04/2023 Assessment & Plan (07/04/2023 1:27 PM EST): Nausea w/ vomiting, not intractable. Unclear etiology, see w/u planned below. Start zofran. Encouraged sipping fluids frequently and eating small amts of soft, bland food. Avoid fatty or spicy foods. Upper abdominal pain 07/04/2023 Assessment & Plan (07/04/2023 1:26 PM EST): RUQ and epigastric pain with radiation to the back. No clear food trigger, associated nausea and vomiting. Denies heartburn experience. No regular alcohol intake. Discussed d/dx: gastritis, pancreatitis, gallbladder dz, GERD/PUD. Will send for labs and abdominal u/s to further investigate. In the meantime, recommend soft, bland, low fat diet w/ plenty of clear fluids. Will treat nausea/vomiting with zofran, risks/benefits/side effects reviewed. ED precautions/red flags discussed. F/u PRN. Migraines 12/13/2022 12/13/2022 Assessment & Plan (01/24/2023 11:35 PM EDT): Patient reports migraines better but still having 1 to 2/week, averaging 4/month. Maxalt has been useful for control of breakthrough migraines. She is interested in possible increased dose. Slight increase in dose to 35 mg and monitor for reduction in headaches. Assessment & Plan (12/13/2022 9:44 PM EDT): Patient seen today for follow-up of migraines-we discussed trial of Elavil for migraine prevention. We also discussed switching to Maxalt to see if better abortive therapy. Continue monitoring. Attention deficit disorder (ADD) without hyperac tivity 12/13/2022 Overview (12/13/2022): Diagnosed as an adult, initially concerned it was post concussion related? Previously treated with Focalin. Numbness and tingling in left arm 03/16/2018 12/13/2022 Overview (12/13/2022): Seen by Dr. Galindo ([facility]) 02/2018 -- thought to have peripheral nerve irritation Recommended night splinting and EMG study in next 6 weeks-EMG normal 06/2018 EMG normal, 07/2018-will get MRI to eval for occult volar cyst Last Assessment & Plan: Has a nerve study next week. Localized skin mass, lump, or swelling 7 12/13/2022 Overview (12/13/2022): Sternum, referred to pedi surg 05/2017; seen by surgery, US and CXR normal, resolved on recheck appt 06/2017, f/u with surgery prn Last Assessment & Plan: Follow up with pediatric surgery. Multiple joint pain 10/31/2016 12/13/2022 Overview (12/13/2022): complaints of neck pain, lower back pain, knee pain and intermtitent swelling refractory to treatment, examined by Dr. Bennett in past, elevated YANCY but other labwork reassuring for no rheumatologic disease, now with pain in other joints. Evaluation by Dr. Bennett suggests fibromyalgia -- referred to pediatric chronic pain program at [facility], mom disagrees with diagnosis, able to function well despite pain-treating with conservative measures for now Last Assessment & Plan: Persists, recommended NSAIDs as needed, heat, regular low impact exercise such as yoga or swimming Assessment & Plan (11/15/2023 1:06 AM EDT): Continued multiple joint pains of unknown origin. Will continue monitoring for effect with reducing dose of steroid. Labs so far unrevealing. Did have borderline elevated complement level. Assessment & Plan (11/13/2023 11:35 PM EDT): Patient with continued multiple joint pains migratory and refractory to current treatment. Previously evaluated for multiple joint pains with suggestion of fibromyalgia, has not had symptoms in years. Does have family members with autoimmune disease. Will check autoimmune panel to better evaluate. Trial prednisone taper. Assessment & Plan (11/03/2023 1:54 PM EDT): Multiple migratory joint pain with acute onset of unknown origin. Suspicious at this time still for viral tenosynovitis. Will check UA and GC/chlamydia. Consider repeat labs pending recheck. Continue NSAID therapy and monitor for new symptoms. Assessment & Plan (10/28/2023 10:40 PM EDT): Patient with new onset of multiple joint pain-now has chills as well, concern for possible infectious process. Will check labs as below. Follow-up if new or worsening symptoms. Trial diclofenac. Pain in left knee 10/31/2016 12/13/2022 Overview (12/13/2022): exam and hx c/w patellar tendonitis or patellofemoral syndrome, MRI knee x2 has been normal, refractory to tx including Kenalog injection, multiple courses of PT, knee brace, etc Last Assessment & Plan: Persists, recommended NSAIDs as needed, heat, regular low impact exercise such as yoga or swimming Family history of genetic disease 05/25/2015 12/13/2022 Overview (12/13/2022): MTHFR heterozygous for mutation Menorrhagia 05/25/2015 12/13/2022 Overview (12/13/2022): controlled on OCP, followed by grass cutter Last Assessment & Plan: Is taking pill continuously with good effect Assessment & Plan (07/04/2023 1:28 PM EST): Historically controlled w/ OCP. Newly inserted Nexplanon, reports recent episode of prolonged bleeding. Denies possible . Followed by MARBLE WORKER. Assessment & Plan (12/13/2022 8:41 AM EDT): IUD with ok effect, was hoping would work as well as OCP for menorrhagia, but still having periods. Recent placement, will watch. Resolved Problems Problem Noted Date Diagnosed Date Resolved Date Tonsillitis 01/03/2023 01/24/2023 05/30/2023 Assessment & Plan (01/24/2023 11:34 PM EDT): Patient with recurrent strep throat and tonsillitis, reports some snoring. We discussed referral to ENT for further evaluation and management of tonsils and adenoids. Suicidal ideation 12/02/2021 12/13/2022 12/13/2022 Concussion without loss of consciousness 12/04/2017 12/13/2022 12/13/2022 Assessment & Plan (12/13/2022 8:39 AM EDT): Prior x3 from various injuries- not sport related, no residual deficits. Continue to monitor. Acute midline thoracic back pain 05/30/2016 12/14/1912/13/2022 Overview (12/13/2022): Worsening, feels like its radiating out, bothers her mostly at nighttime, limits her activity a bit Last Assessment & Plan: Persists, recommended NSAIDs as needed, heat, regular low impact exercise such as yoga or swimming Encounters Date Type Department Care Team Description 06/07/[address] [place] [address] Ok Rene DO Medication Prior Authorization (wegovy) 05/20/2025 4:00 PM EDT Office Visit [address] [place] [address] Ok Rene DO BMI 35.0-35.9,adult (Primary Dx); Encounter for weight management; Anxiety and depression; Multiple joint pain 04/15/2025 11:30 AM EDT Office Visit [address] [place] [address] Ok Rene DO Anxiety and depression (Primary Dx) 04/13/[address] [place] [address] Jenn Estes RN E-Consult note 03/18/2025 E-Consult [facility] [address] [address] Orlando Pham MD, MPH 03/16/2025 1:15 PM EDT Office Visit [address] [place] [address] Ok Rene DO Anxiety and depression (Primary Dx); 36 weeks gestation of from Last 3 Months Immunizations Immunization Administration Dates Next Due DTaP 02/15/2004, 2,2000,07/01,2000 HPV,quadrivalent 05/27/2013,09/24/2012, 2 Hepatitis A, Adult 08/06/2019 Hepatitis B 2000,2000,2000 Hepatitis B Adult 01/18/2021 Hib,PRP-T 05/19/2001, 1,2000,05/02 INFLUENZA, SPLIT VIRUS, TRIVALENT PF 04/30/2024 INFLUENZA, SPLIT VIRUS, TRIV ALENT W/ PRESERVATIVE IM 05/10/2022,09/24/2012 IPV 02/15/2004, 1,2000,05/02 Influenza Quadrivalent Intranasal 05/11/2014 Influenza Quadrivalent MDCK Preservative Free IM 03/16/2021 Influenza Quadrivalent Prese rvative Free IM 05/20/2023,08/06/2019,06/16/2018,05/30,05/27/2013 Influenza, Unspecified Formulation 03/16/2021 MMR 01/19/2021,2005,05/19/2001 Meningococcal MCV4P 06/21/2017,03/19/2012 PPD Test 07/06/2024,03/15/2023,01/28/2018 Pneumococcal conjugate, PCV 7 05/19/2001 ,2000,2000,05/02 Tdap 04/30/2024,03/08/2022,03/19/2012 Varicella 01/19/2021,02/17/2007,02/06/2001 Family History Medical History Relation Comments No Known Problems Brother Diabetes Father Hypertension Father Diabetes Mother High cholesterol Mother Relation Status Comments Brother Father Mother Social History Tobacco Use Types Packs/Day Years Used Date Smoking Tobacco: Never Smokeless Tobacco: Never Alcohol Use Standard Drinks/Week Comments Not Currently 0 (1 standard drink = 0.6 oz pur e alcohol) Only 1-2 time a month Child or Family Care Answer Date Record ed Do you have problems with on e of the following making it difficult for you to work, study, or receive health care? No 08/11/2024 Education Answer Date Recorded Are you interested in help w ith more adult education (for example, completing high school, GED, job training, learning the Polish language, technical skills, or developing parenting skills)? No 08/11/2024 Are you concerned about learning? Not on file 08/11/2024 No 08/11/2024 Yes 08/11/2024 Food Answer Date Recorded Within the past 6 months we worried whether our food would run out before we got money to buy more. Never True 08/11/2024 Within the past 6 months the food we bought just didn't last and we didn't have enough money to get more. Never True Residential Stability Answer Date Recor ded What is your housing situation today? I have anthony sing 08/11/2024 How many times have you move d in the past 12 months? Zero (I did not move) 08/11/2024 Paying for Meds Answer Date Recorded Do you have trouble paying for medicines? No 08/11/2024 Paying Utility Bills Answer Date Record ed Do you have trouble paying your heating or elect ricity bill? No 08/11/2024 Transportation Answer Date Recorded Has the lack of transportati on kept you from medical appointments or from getting medications? No 08/11/2024 Unemployment Answer Date Recorded Are you currently unemployed or working on a part-time or temporary basis, and looking for work? No 08/11/2024 Digital Access Answer Date Recorded No 08/11/2024 Yes 08/11/2024 Do you have reliable internet access at home? Ye s 08/11/2024 Do you have a device (e.g., phone, tablet, computer) with a working camera? Yes 08/11/2024 Intimate Partner Violence Answer Date R ecorded Denied Basic Needs Not on file 08/11/2024 In the past 12 months have y ou been in a relationship with a person who hurts, threatens, or tries to control you? No 08/11/2024 Worried food would run out Not on file 08/11 In the past 12 months have y ou been in a relationship with a person who hurts, threatens, or tries to control you? No 08/11/2024 Comments No Sex and Gender Information Value Date Recorded Sex Assigned at Female 01/25/2023 3:06 PM EDT Legal Sex Female 8:47 PM EDT Gender Identity Female 01/25/2023 3:06 PM EDT Sexual Orientation Straight 01/25/2023 3: 06 PM EDT Last Filed Vital Signs Vital Sign Reading Time Taken Comments Blood Pressure 104/72 05/20/2025 3:53 PM EDT Pulse 101 05/20/2025 3:53 PM EDT Temperature 36.1 C (97 F) 03/16/2025 12:52 PM EDT Respiratory Rate 16 05/06/2023 11:15 AM EDT Oxygen Saturation 98% 05/20/2025 3:53 PM EDT Inhaled Oxygen Concentration - - Weight 86.6 kg (191 lb) 05/20/2025 3:53 PM EDT Height 155.6 cm (5' 1.26 ) 05/20/2025 3:53 PM ED T Body Mass Index 35.78 05/20/2025 3:53 PM EDT Plan of Treatment Health Maintenance Due Date Last Done Comments PAP SMEAR 03/15/2024 03/15/2021, 03/15/2021 INFLUENZA VACCINE (#1) 2025 , 05/20/2023, 05/10/2022, Additional history exists COVID-19 VACCINE ( season) 2025 08/15/2021, 09/16/2020, 08/19/2020 DEPRESSION SCREENING 05/20/2026 05/20/2025, 07/24/20 24 SMOKING Hx and SMOKELESS TOBACCO SCREENING 05/20/2026 05/20/2025 Adult Td,Tdap Booster 01/26/2035 01/26/2025 , 04/30/2024, 03/08/2022, Additional history exists HIB VACCINES Completed 05/19/2001, 08/30, 2000, Additional history exists PNEUMOCOCCAL VACCINES (0-49 years) Aged Out 05/19/2001, 2000, 2000, Additional history exists No longer eligible based on patient's age to complete this topic IPV VACCINES Completed 02/15/2004, 01/26, 2000, Additional history exists HPV VACCINES Completed 05/27/2013, 08/30, 03/19/2012 MENINGOCOCCAL VACCINES (ACWY) Completed 06/21/2017, 03/19/2012 HEPATITIS A VACCINES Aged Out 08/06/2019 No long er eligible based on patient's age to complete this topic HIV ONE-TIME SCREENING (18-65 YEARS) Completed 03/14/2022 HEPATITIS C SCREENING Completed 06/14/2023, 023 MENINGOCOCCAL VACCINES (B) Aged Out N o longer eligible based on patient's age to complete this topic Medical Devices Implanted Type Area Senior Ux Developer Device Identifier Shelf Expiration Date Model / Serial / Lot Iud Procedures Procedure Name Priority Date/Time Associated Diagnosis Comments HEPATITIS C ANTIBODY, QUALITATIVE Routine 06/14/2023 8:15 AM EST Need for hepatitis C screening test HM PAP SMEAR FOR RESULT ENTRY ONLY Routine 03/15/2021 from Last 3 Months or Most Recently Relevant to Health Maintenance Results * Hepatitis C antibody, qualitative (06/14/2023 8:15 AM EST) HCV NON-REACTIV E NON-REACTI VE [facility] Blood 06/14/2023 8:15 AM EST 06/14/2023 8:32 AM EST Ok Rene DO LAB BLOOD BKR ORDERABLE S Final Result [facility] [address] [place] [address] * PAP SMEAR FOR RESULT ENTRY ONLY (03/15/2021) HM Pap smear NILM, transformation zone absent, alvin us Historical Provider MD HEALTH MAINTENANCE Final Result from Last 3 Months or Most Recently Relevant to Health Maintenance Insurance [employer] Workbooks [employer] Workbooks [employer] Workbooks [employer]EF[employer] Workbooks BENEFITS ADMINISTR[employer] Workbooks [employer]MIN[employer] Care Teams Senior Education Specialist Relationship Specialty Start Date End Date Ok Rene DO [address] [place] [address], [address] [place] [address] [email or web address] PCP - General Internal Medicine 12/13/22 Additional Source Comments The information contained in this document represents components of the legal health record. It is not the complete legal health record.[facility]
--- OUTSIDE RECORDS SUMMARY | 2025-06-07 21:29 | XMS_ITS | Encounter Summary ---
Author Organization [facility] Address [address] [place] [address] Phone Care Team Providers Care Foot Drill Operator Name Role Phone Ok Rene DO Primary Care Provider Reason for Visit * Reason Onset Date Comments Medication Prior Authorization 06/07/2025 w [email or web address] Encounter Details Date Type Department Care Team (Late st Contact Info) Description 06/07/2025 Telephone [employer] [facility] [facility] [address] [place] [address] Ok Rene DO [address] [place] [address] [email or web address] Medication Prior Authorization (wegovy) Social History Tobacco Use Types Packs/Day Years [...] high school, GED, job training, learning the Georgian language, technical skills, or developing parenting skills)? [...] your housing situation today? I have anthony yin 08/11/2024 How many times have you move [...] PM EDT documented as of this encounter Progress Notes * Alesia Power MA - 06/07/2025 2:33 PM EST Ep initiated for inessavy documented in this encounter Plan of Treatment Not on file documented as of this encounter Visit Diagnoses Not on filedocumented in this encounter Additional Health Concerns Assessment Noted Time PHQ-9 Depression Total Score: 7 07/24/20 24 2:19 PM EST PHQ-2 Depression Total Score: 0 05/20/20 25 12:46 PM EDT documented as of this encounter Care Teams Foot Drill Operator Relationship Specialty Start Date End Date Ok Rene DO [address] [place] [address], [address] [place] [address] [email or web address] PCP - General Internal Medicine 12/13/22 documented as of this encounter Additional Source Comments The information contained in this document represents components of the legal health record. It is not the complete legal health record.[facility]
--- OUTSIDE RECORDS SUMMARY | 2025-06-07 21:29 | XMS_ITS | Clinical Summary ---
Author Organization [address] Address [address] [place] [phone] Phone Care Team Providers Care Hand Braille Transcriber Name Role Phone Jeet Olson MD Primary Care Provider [phone] Allergies No known active allergies Medications sertraline (ZOLOFT) 25 mg tablet 2 Active FOCALIN XR 5 mg 24 hr capsule PLEASE SEE ATTACHED FOR DETAILED DIRECTIONS 2 Active Active Problems Problem Noted Date Diagnosed Date Suicidal ideation 12/02/2021 Social History Tobacco Use Types Packs/Day Years Used Date Smoking Tobacco: Never Alcohol Use Standard Drinks/Week Comments Yes 0 (1 standard drink = 0.6 oz pure alcohol) reports going out social drinking in college approximately 2 weekends/month. This evening drank 6 standard drinks Comments Unknown Sex and Gender Information Value Date Recorded Sex Assigned at Not on file Legal Sex Female 5:53 PM EDT Gender Identity Not on file Sexual Orientation Not on file Last Filed Vital Signs Vital Sign Reading Time Taken Comments Blood Pressure 122/71 12/02/2021 6:29 AM EDT Pulse 95 12/02/2021 6:29 AM EDT Temperature 37.1 C (98.7 F) 12/02/2021 4:09 AM EDT Respiratory Rate 18 12/02/2021 6:29 AM EDT Oxygen Saturation 100% 12/02/2021 7:35 AM EDT Inhaled Oxygen Concentration - - Weight 68 kg (150 lb) 12/02/2021 4:09 AM EDT Height 154.9 cm (5' 1 ) 12/02/2021 4:09 AM EDT Body Mass Index 28.34 12/02/2021 4:09 AM EDT Plan of Treatment Health Maintenance Due Date Last Done Comments HIV screening 02/01/2013 Hepatitis C screening 02/01/2018 Cervical cancer screening 02/01/2021 DTaP/TDaP Vaccines (7 - Td or Tdap) 03/19/2022 03/19/2012, 02/15/2004, 08/08/2001, Additional history exists Tetanus adult (Td q 10,TDAP once) 03/19/2022 03/19/2012, 02/15/2004, 08/08/2001, Additional history exists Influenza vaccine 02/26/2025 03/16/2021, , 05/30/2016, Additional history exists Covid-19 vaccine series (2024- season) 2025 RSV Immunization (1 - 1-dose 75+ series) 02/01/2075 Hepatitis B vaccine series Completed 12/04, 2000, 2000 HIB Vaccines Completed 05/19/2001, 08/30, 2000, Additional history exists Pneumococcal Vaccine (2 - 49 years) Aged Out 05/19/2001, 2000, 2000, Additional history exists No longer eligible based on patient's age to complete this topic IPV Vaccines Completed 02/15/2004, 01/26, 2000, Additional history exists HPV vaccine series Completed 05/27/2013, 0 09/24/2012, 03/19/2012 Meningococcal Vaccine Completed 06/21/2017, 012 Chlamydia screening Discontinued 06/16/2018 MMR Vaccines Completed 01/19/2021, 07/0 02/2005, 05/19/2001 Varicella Vaccines Completed 01/19/2021, 0 02/17/2007, 02/06/2001 Hepatitis A Vaccines Aged Out No long er eligible based on patient's age to complete this topic Meningococcal B Vaccine Aged Out No l onger eligible based on patient's age to complete this topic Rotavirus Vaccines Aged Out No longer eligible based on patient's age to complete this topic Insurance [id number] MEDICAID [id number] MEDICAID [id number] MEDICAID Care Teams Hand Braille Transcriber Relationship Specialty Start Date End Date Jeet Olson MD [address] [phone] PCP - General Pediatrics 11/19/18
[2025-06-07 21:30] LABS: INTERNATIONAL NORM RATIO 1.0 (0.9-1.1); Prothrombin Time 11.9 SEC (11.2-13.5)
--- NOTE | 2025-06-07 23:30 | ED_ITS ---
HPI - General Adult General Chief complaint: Extremity Problem Stated complaint: pain and swelling rt leg Time Seen by Provider: 06/07/25 22:45 Source: patient Mode of arrival: ambulatory Limitations: no limitations History of Present Illness ED Provider: Michoacano Botello HPI narrative: 25 yold female s/p C section with family history of blood clots presents to the ED for right calf swelling for the past 3 days without any trauma, redness, fever, chills, bluish/black discloration, chest pain, or shortness of breath. Related Data Previous Rx's ?Medication ?Instructions ?Recorded acetaminophen 500 mg tablet 500 mg PO Q6H PRN pain or fever 11/10/21 (Tylenol Extra Strength) #14 tabs benzonatate 200 mg capsule 200 mg PO TID PRN cough #20 caps 11/10/21 fluticasone propionate 50 2 spray intranasal DAILY #16 grams 11/10/21 mcg/actuation nasal spray,suspension (Flonase Allergy Relief) ibuprofen 400 mg tablet 400 mg PO Q6H 7 days #14 tab s 11/10/21 docusate sodium 100 mg capsule 100 mg PO BID #20 caps 02/18/23 (Colace) ketorolac 10 mg tablet 10 mg PO TID PRN pain 5 days #15 02/18/23 tabs polyethylene glycol 3350 17 17 g PO BID PRN constipati on #238 02/18/23 gram/dose oral powder (Miralax) grams sennosides 8.6 mg tablet (senna) 8.6 mg PO BEDTIME #14 tabs 02/18/23 nitrofurantoin 100 mg PO BID 5 days #10 cap s 02/24/23 monohydrate/macrocrystals 100 mg capsule (Macrobid) nitrofurantoin 100 mg PO Q12H 7 days #14 ca ps 02/04/24 monohydrate/macrocrystals 100 mg capsule (Macrobid) famotidine 20 mg tablet (Pepcid) 20 mg PO DAILY PRN ab dominal 06/24/24 discomfort #30 tabs lactulose 20 gram/30 mL oral 20 g (30 mL) PO DAILY #1, 200 mL 06/24/24 solution ondansetron 4 mg disintegrating 4 mg PO Q8H PRN nausea and 06/24/24 tablet vomiting #20 tabs Allergies Allergy/AdvReac Type Severity Reaction Status Date / Time amoxicillin Allergy Hives Verified 06/07/25 20:59 Review of Systems 2 Review of Systems: right calf swelling Yes all other systems are reviewed and are negative [facility] Past Medical History Medical History No known health problems Social History Social History Alcohol intake: current Alcohol intake frequency: holidays/special occasions only Patient Tobacco Use Status: Never used Tobacco Substance Use Type: Marijuana Advance Directives: No Advance Directives Information Provided: No Do you have a plan to hurt others: No Plan Physical Exam ED Vital Signs: Vital Signs - 24 hr 06/07/25 20:56 Temperature 97.8 F Pulse Rate 110 H Respiratory Rate 16 Blood Pressure 145/76 H Pulse Oximetry 98 Oxygen Delivery Method Room Air BMI result Body Mass Index 36.5 Const General: cooperative, healthy appearing, comfortable, no acute distress, well developed, alert, awake and Physically active Orientation/consciousness: patient oriented x3 HENMT Head: Yes normal to inspection, Yes No palpable skull fracture present, Yes normocephalic and Yes atraumatic Eyes General: appearance normal, both eyes and all related structures Neck Neck: Yes normal visual inspection, Yes full ROM, Yes no lymphadenopathy, Yes no meningeal signs, Yes trachea midline, Yes supple, No anterior neck swelling and No tender Chest Chest palpation & inspection: normal inspection of the chest and normal palpation of entire chest wall Resp Effort & Inspection: normal respiratory effort and able to speak in complete sentences Auscultation: clear to auscultation bilaterally Cardio Jugular venous distension: no JVD Heart sounds: S1 normal heart sound present and S2 normal heart sound present GI Inspection: Yes normal to inspection Palpation (GI): not firm, nontender, no guarding and not rigid General: Yes no CVA tenderness Back/Spine/Pelvis Back: no CVA tenderness and No back tenderness Skin General skin exam: no rashes or lesions noted, elasticity normal and turgor normal Neuro General: patient oriented x3, gait normal, tone normal, moves all extremities, Normal light touch and pain sensation, no meningeal signs, no focal motor deficits, CN's II-XI intact bilaterally and normal sensation to monofilament Extrem General: Yes normal to inspection, Yes full ROM and Yes capillary refill normal Ankle/foot/toe images: 2 1. Positive for swelling. Negative for tenderness, crepitus, ecchymosis, deformity, erythema, lesions, rash, red streaks, pus discharge, foul odor, open wound, hotness, or coldness. Rest of extremity normal. Motor/neuro/vascular exam intact Psych Appearance: grossly normal, well kempt and not disheveled Medical Decision Making Medical Decision Making [facility] Narrative: 25-year-old female presents to the ED for right calf swelling without any trauma. Labs shows anemia. Patient states she has known anemia patient denies any rectal bleeding, weakness, or dizziness. Ultrasound negative for DVT. Physical exam negative for signs of compartment syndrome, arterial occlusion, cellulitis, osteomyelitis, necrotizing fasciitis, fracture, dislocation, or any other life threatening etiology. Patient explained worrisome signs and informed to return to the ED immediately. Differential Diagnosis Differential Diagnoses: The differential diagnosis associated with the presentation includes (DVT) Admission/Observation Consideration of admission/observation: Escalation of care including admission/observation considered Lab Data [facility] Lab Attestation statement: I reviewed the patient's lab results. 06/07/25 21:11 06/07/25 21:11 Labs: Lab Results 06/07/25 Range/Units 21:11 WBC 11.0 H (4.8-10.8) X10*3/uL RBC 4.52 (4.20-5.50) X10*6/uL Hgb 10.0 L D (12.0-16.0) g/dl Hct 33.7 L (37.0-47.0) % MCV 74.6 L (80.0-98.0) fL MCH 22.1 L (27.0-33.0) pg MCHC 29.7 L (31.0-35.0) g/dl RDW 16.8 H (11.0-16.0) % Plt Count 420 H D (160-400) X10*3/uL MPV 9.7 (9.4-12.3) fL Immature Gran % (Auto) 0.3 (0.0-0.4) % Neut % (Auto) 70.3 (45-73) % Lymph % (Auto) 23.9 (20-40) % [place] % (Auto) 4.0 (2-11) % Eos % (Auto) 1.1 (0-4) % Baso % (Auto) 0.4 (0-2) % Lymph # (Auto) 2.6 (1.2-4.9) X10*3/uL [place] # (Auto) 0.4 (0.1-1.2) X10*3/uL Eos # (Auto) 0.1 (0.0-0.4) X10*3/uL Baso # (Auto) 0.0 (0.0-0.2) X10*3/uL Abs Immat Gran (auto) 0.03 (0.00-0.03) X10*3/uL Absolute Neuts (auto) 7.8 (2.0-8.3) x10*3/uL Absolute Nucleated RBC 0.000 (0.0-0.012) X10*3/uL Nucleated RBC % (auto) 0.0 (0.0-0.2) /100WBC PT 11.9 (11.2-13.5) SEC INR 1.0 (0.9-1.1) Sodium 141 (135-145) mmol/L Potassium 4.2 (3.3-5.1) mmol/L Chloride 107 (96-108) mmol/L Carbon Dioxide 23 (22-29) mmol/L Anion Gap 15 (12-20) BUN 12 (9-16) mg/dL Creatinine 0.80 (0.5-1.4) mg/dL Estim Creat Clear Calc 108.1 Estimated GFR > 60 Random Glucose 104 (60-115) mg/dL Calcium 9.5 (8.4-10.2) mg/dL Magnesium 1.9 (1.6-2.6) mg/dL Total Bilirubin 0.2 (0.0-1.0) mg/dL AST 22 (5-31) U/L ALT 32 H (0-31) U/L Alkaline Phosphatase 130 H (39-117) U/L Total Protein 7.9 (6.5-8.0) g/dL Albumin 4.9 (3.5-5.0) g/dL Independent Interpretation I performed an independent interpretation of an: Ultrasound Radiology Impression Discussion of test interpretation with radiology: I have reviewed the radiologist's reading. Independent Historian Clinical information obtained from an independent historian. History obtained from or confirmed by: Other (Patient is) Prescription Management I considered prescription management with: Other Discharge Plan Discharge Clinical Impression: Lower extremity edema, Anemia Patient Disposition: Home, Self-Care Instructions: Leg Edema (ED), Anemia (ED) Additional Instructions: Recommend follow-up with primary care provider. return to the ED immediately for any chest pain, shortness of breath, chest pain inspiration, increased leg swelling, redness, bluish black discoloration, hotness/coldness of extremity, fever, chills, or any other concerning symptoms. Ordering Physician: Generic ED Physician Date of Service: 06/07/25 Procedure(s): US venous duplex LE RT Accession Number(s): [id number] cc: Ok Rene DO; Generic ED Physician~ Reason for Exam: R leg pain/swelling/redness CLINICAL HISTORY: R leg pain swelling redness Venous duplex ultrasound right lower extremity Comparison: None provided Findings: The visualized deep veins are fully compressible with normal Doppler color flow and spectral tracings. Imaged superficial soft tissues are unremarkable for technique. IMPRESSION: 1. Negative for right lower extremity deep vein thrombosis. This document has been electronically signed by: Fercho Hickey MD on 06/07/2025 22:38:25 [facility] [address] [place] [id number] Sales Administrator: Jose Darnell M.D. Specimen Inquiry Name: Sona Ivey Age/Sex: 25/F : 2000 Unit#: [id number] Attend Dr: Lizette Varela MD Re06/07/25 Status: REG ER Location: [facility] isch: SPEC : [id number] SERENA: 06/07/25 STATUS: COMP REQ : [id number] RECD: 06/07/25 [facility] [address]: Lizette Varela MD COMP: 06/07/25 ENTERED: 06/07/[address] [facility] [address]: Ok Rene ED Physician ORDERED: CBC Auto Diff Test Result Flag Reference WBC 11.0 H 4.8-10.8 X10*3/uL RBC 4.52 4.20-5.50 X10*6/uL HGB 10.0 # L 12.0-16.0 g/dl HCT 33.7 L 37.0-47.0 % MCV 74.6 L 80.0-98.0 fL MCH 22.1 L 27.0-33.0 pg MCHC 29.7 L 31.0-35.0 g/dl RDW 16.8 H 11.0-16.0 % PLT 420 # H 160-400 X10*3/uL MPV 9.7 9.4-12.3 fL Neut Pct Auto 70.3 45-73 % ImGran Pct Auto 0.3 0.0-0.4 % Lymp Pct Auto 23.9 20-40 % [place] Pct Auto 4.0 2-11 % Eos Pct Auto 1.1 0-4 % Baso Pct Auto 0.4 0-2 % NRBC Pct Auto 0.0 0.0-0.2 /100WBC ANC Neut Abs # 7.8 2.0-8.3 x10*3/uL ImGran Abs Auto 0.03 0.00-0.03 X10*3/uL Lymph Abs Auto 2.6 1.2-4.9 X10*3/uL [place] Abs Auto 0.4 0.1-1.2 X10*3/uL Eos Abs Auto 0.1 0.0-0.4 X10*3/uL Baso Abs Auto 0.0 0.0-0.2 X10*3/uL NRBC Abs Auto 0.000 0.0-0.012 X10*3/uL END OF REPORT Prescriptions: No Action benzonatate 200 mg capsule 200 mg PO TID PRN (Reason: cough) Qty: 20 0RF acetaminophen [Tylenol Extra Strength] 500 mg tablet 500 mg PO Q6H PRN (Reason: pain or fever) Qty: 14 0RF ibuprofen 400 mg tablet 400 mg PO Q6H 7 Days Qty: 14 0RF fluticasone propionate [Flonase Allergy Relief] 50 mcg/actuation spray,suspension 2 spray intranasal DAILY Qty: 16 0RF Rx Instructions: administer into each nostril famotidine [Pepcid] 20 mg tablet 20 mg PO DAILY PRN (Reason: abdominal discomfort) Qty: 30 0RF ondansetron 4 mg tablet,disintegrating 4 mg PO Q8H PRN (Reason: nausea and vomiting) Qty: 20 0RF lactulose 20 gram/30 mL solution 20 g PO DAILY Qty: 1200 0RF ketorolac 10 mg tablet 10 mg PO TID PRN (Reason: pain) 5 Days Qty: 15 0RF sennosides [senna] 8.6 mg tablet 8.6 mg PO BEDTIME Qty: 14 0RF docusate sodium [Colace] 100 mg capsule 100 mg PO BID Qty: 20 0RF polyethylene glycol 3350 [Miralax] 17 gram/dose powder 17 g PO BID PRN (Reason: constipation) Qty: 238 0RF nitrofurantoin monohyd/m-cryst [Macrobid] 100 mg capsule 100 mg PO BID 5 Days Qty: 10 0RF Rx Instructions: must administer with a meal/food nitrofurantoin monohyd/m-cryst [Macrobid] 100 mg capsule 100 mg PO Q12H 7 Days Qty: 14 0RF Rx Instructions: must administer with a meal/food Referrals: Ok Rene DO [Primary Care Provider, Internal Medicine] - 2 days Referral Note: Right leg swelling, anemia Clinical Impression: Anemia; Lower extremity edema Interventions: ED Discharge Assessment Last Done: 06/08/25 00:39 Discharge Date/Time: 06/08/25 00:44 Print Language: Ugandan
[2025-06-08 00:35] VITALS: BP 114/70; PULSE 100; RESP 16; TEMP 36.9; O2SAT 97
[2025-06-08 00:39] VITALS: BP 114/70; PULSE 100; RESP 16; TEMP 36.9; O2SAT 97
== END 2025-06-08 00:44 | disposition home or self-care (01) ==
PROVIDERS: Emergency Provider Emergency Medicine; PCP Pediatrics
DX: R60.0 Localized edema (principal); M79.604 Pain in right leg; D64.9 Anemia, unspecified
CPT/HCPCS: 36415; 80053; 83735; 85025; 85610; 93971; 99283; 99284

== ENCOUNTER → 2025-06-07 21:10 | Outpatient (BNV) | payer OTHER, SELFPAY | PROVIDERS: Emergency Provider Emergency Medicine; PCP Pediatrics; Visit Provider Radiology Neuroradiology | DX: R22.41 Localized swelling, mass and lump, right lower limb (principal); M79.604 Pain in right leg; R21 Rash and other nonspecific skin eruption | CPT/HCPCS: 93971 ==